=== PATIENT | female | born 1965 | race Two or more races ===

== ENCOUNTER 2019-09-14 22:07 | Inpatient (IN) | payer SELFPAY ==
--- NOTE | 2019-09-14 22:34 | EDM.PDOC ---
ED HPI GENERAL MEDICAL PROBLEM - General Chief Complaint: Gastrointestinal Problem Stated Complaint: VOMITTING FEVER Time Seen by Provider: 09/14/19 22:27 Source of Information: Reports: Family, [employer] History Limitations: Reports: No Limitations - History of Present Illness INITIAL COMMENTS - FREE TEXT/NARRATIVE: Patient son states for 2 weeks she has been throwing up unable to keep anything down with a fever. Patient also states he has had urinary pain and joint pain. Is visiting from [facility]. Is a diabetic he denies chest pain or shortness of breath or diarrhea. Onset: Today Duration: Week(s):, Getting Worse Location: Reports: Abdomen Quality: Reports: Ache Severity: Moderate Improves with: Reports: None Worsens with: Reports: None Associated Symptoms: Reports: No Other Symptoms, Fever/Chills, Loss of Appetite , Nausea/Vomiting Abdomen Pain Score (Numeric/FACES): 7 - Related Data Allergies Allergy/AdvReac Type Severity Reaction Status Date / Time No Known Allergies Allergy Verified 09/14/19 22:22 Home Meds: Home Meds Enalapril Maleate 20 mg PO DAILY 09/14/19 [History] metFORMIN [Glucophage] 1,000 mg PO BIDMEALS 09/14/19 [History] ED ROS GENERAL - Review of Systems Review Of Systems: Comprehensive ROS is negative, except as noted in HPI. Constitutional: Reports: Fever, Weakness HEENT: Reports: No Symptoms Respiratory: Reports: No Symptoms Cardiovascular: Reports: No Symptoms Endocrine: Reports: Fatigue GI/Abdominal: Reports: Abdominal Pain, Anorexia, Nausea, Vomiting : Reports: Urgency Musculoskeletal: Reports: Muscle Pain Skin: Reports: No Symptoms Neurological: Reports: No Symptoms Psychiatric: Reports: No Symptoms Hematologic/Lymphatic: Reports: No Symptoms Immunologic: Reports: No Symptoms ED EXAM, GI/ABD - Physical Exam Exam: See Below Exam Limited By: No Limitations General Appearance: Alert, WD/WN, No Apparent Distress Ears: Normal External Exam, Normal Canal, Hearing Grossly Normal, Normal TMs Nose: Normal Inspection, Normal Mucosa Throat/Mouth: Normal Inspection, Normal Lips, Normal Teeth, Normal Oropharynx, Normal Voice Head: Atraumatic, Normocephalic Neck: Normal Inspection, Supple, Non-Tender Respiratory/Chest: No Respiratory Distress, Lungs Clear, No Accessory Muscle Use Cardiovascular: Normal Peripheral Pulses, Regular Rate, Rhythm, No Edema GI/Abdominal Exam: Normal Bowel Sounds, No Organomegaly, No Abnormal Bruit, No Mass, Tender (Female) Exam: Deferred Rectal (Female) Exam: Deferred Back Exam: Normal Inspection, Full Range of Motion, CVA Tenderness (R) Extremities: Normal Inspection, Normal Range of Motion, No Pedal Edema, Normal Capillary Refill Neurological: Alert, Oriented, CN II-XII Intact, Normal Cognition, Normal Gait, Normal Reflexes, No Motor/Sensory Deficits Psychiatric: Normal Affect, Normal Mood Skin Exam: Warm, Dry, Intact, Normal Color, No Rash Lymphatic: No Adenopathy Course - Vital Signs Text/Narrative:: 54-year-old female who comes from [facility] with a 2-week history of nausea vomiting and malaise. Patient states she has had fever and chills and cannot keep anything down. History of diabetes which she takes metformin for. Was given IV fluids and labs were obtained. Vitals showed patient was tachycardic with a low-grade fever. Septic work-up was ensued with a lactate of 1.7 with a white count of 0.3. Of note her urine seems like it is infected with the high white count and bacteria. She was started on IV fluids, antibiotics, and antiemetics. Patient spiked a fever of 102 in the emergency room was given Tylenol also. Did the chest x-ray and abdominal series showed no abnormality or pathology. A CT scan of the abdomen was also performed which was negative. Patient continues to have vomiting and is uncomfortable and also spiking fevers. This patient might need more hydration at this time with a urinary tract infection. We will call the hospitalist on this case. For possible admission. Last Recorded V/S: Last Vital Signs Temp 100.7 F H 09/15/19 04:08 Pulse 109 H 09/15/19 04:08 Resp 18 09/15/19 04:08 BP 106/62 09/15/19 04:08 Pulse Ox 94 L 09/15/19 04:08 - Orders/Labs/Meds Orders: Active Orders 24 hr Category Date Time Status Admission Status [Patient Status] [ADT] Stat ADT 09/15/19 04:01 Active EKG 12 Lead [EKG Documentation Completion] [RC] STAT Care 09/14/19 22:41 Active CULTURE BLOOD [BC] Stat Lab 09/15/19 01:38 Results CULTURE BLOOD [BC] Stat Lab 09/15/19 01:50 Received CULTURE URINE [RM] Stat Lab 09/14/19 22:22 Received Blood Culture x2 Reflex Set [OM.PC] Stat Oth 09/15/19 01:36 Ordered Labs: Laboratory Tests 09/14/19 09/14/19 09/14/19 Range/Units 22:22 22:22 22:22 WBC 11.36 H (4.0-11.0) K/uL RBC 4.61 (4.30-5.90) M/uL Hgb 13.1 (12.0-16.0) g/dL Hct 38.6 (36.0-46.0) % MCV 83.7 (80.0-98.0) fL MCH 28.4 (27.0-32.0) pg MCHC 33.9 (31.0-37.0) g/dL RDW Std Deviation 41.3 (28.0-62.0) fl RDW Coeff of Stacie 14 (11.0-15.0) % Plt Count 278 (150-400) K/uL MPV 10.30 (7.40-12.00) fL Neut % (Auto) 78.7 (48.0-80.0) % Lymph % (Auto) 14.7 L (16.0-40.0) % Elliott % (Auto) 5.3 (0.0-15.0) % Eos % (Auto) 1.1 (0.0-7.0) % Baso % (Auto) 0.2 (0.0-1.5) % Neut # (Auto) 8.9 H (1.4-5.7) K/uL Lymph # (Auto) 1.7 (0.6-2.4) K/uL Elliott # (Auto) 0.6 (0.0-0.8) K/uL Eos # (Auto) 0.1 (0.0-0.7) K/uL Baso # (Auto) 0.0 (0.0-0.1) K/uL Nucleated RBC % 0.0 /100WBC Nucleated RBCs # 0 K/uL Lactate (0.20-2.00) mmol/L Sodium 126 L (136-145) mmol/L Potassium 4.1 (3.5-5.1) mmol/L Chloride 88 L (98-107) mmol/L Carbon Dioxide 27.1 (21.0-32.0) mmol/L BUN 13 (7.0-18.0) mg/dL Creatinine 1.1 H (0.6-1.0) mg/dL Est Cr Clr Drug Dosing TNP Estimated GFR (MDRD) 52.0 ml/min Glucose 257 H (74-106) mg/dL Calcium 10.0 (8.5-10.1) mg/dL Total Bilirubin 0.6 (0.2-1.0) mg/dL AST 17 (15-37) IU/L ALT 30 (14-63) IU/L Alkaline Phosphatase 186 H (46-116) U/L Troponin I (0.000-0.056) ng/mL Total Protein 9.2 H (6.4-8.2) g/dL Albumin 3.4 (3.4-5.0) g/dL Globulin 5.8 H (2.6-4.0) g/dL Albumin/Globulin Ratio 0.6 L (0.9-1.6) Urine Color YELLOW Urine Appearance CLEAR Urine pH 6.0 (5.0-8.0) Ur Specific [place] 1.010 (1.001-1.035) Urine Protein NEGATIVE (NEGATIVE) mg/dL Urine Glucose (UA) 100 H (NEGATIVE) mg/dL Urine Ketones NEGATIVE (NEGATIVE) mg/dL Urine Occult Blood SMALL H (NEGATIVE) Urine Nitrite POSITIVE H (NEGATIVE) Urine Bilirubin NEGATIVE (NEGATIVE) Urine Urobilinogen 0.2 (<2.0) EU/dL Ur Leukocyte Esterase SMALL H (NEGATIVE) Urine RBC 3-5 (0-2/HPF) Urine WBC 3-5 (0-5/HPF) Ur Epithelial Cells RARE (NONE-FEW) Urine Bacteria 2+ H (NEGATIVE) 09/14/19 09/15/19 Range/Units 22:22 01:50 WBC (4.0-11.0) K/uL RBC (4.30-5.90) M/uL Hgb (12.0-16.0) g/dL Hct (36.0-46.0) % MCV (80.0-98.0) fL MCH (27.0-32.0) pg MCHC (31.0-37.0) g/dL RDW Std Deviation (28.0-62.0) fl RDW Coeff of Stacie (11.0-15.0) % Plt Count (150-400) K/uL MPV (7.40-12.00) fL Neut % (Auto) (48.0-80.0) % Lymph % (Auto) (16.0-40.0) % Elliott % (Auto) (0.0-15.0) % Eos % (Auto) (0.0-7.0) % Baso % (Auto) (0.0-1.5) % Neut # (Auto) (1.4-5.7) K/uL Lymph # (Auto) (0.6-2.4) K/uL Elliott # (Auto) (0.0-0.8) K/uL Eos # (Auto) (0.0-0.7) K/uL Baso # (Auto) (0.0-0.1) K/uL Nucleated RBC % /100WBC Nucleated RBCs # K/uL Lactate 1.5 (0.20-2.00) mmol/L Sodium (136-145) mmol/L Potassium (3.5-5.1) mmol/L Chloride (98-107) mmol/L Carbon Dioxide (21.0-32.0) mmol/L BUN (7.0-18.0) mg/dL Creatinine (0.6-1.0) mg/dL Est Cr Clr Drug Dosing Estimated GFR (MDRD) ml/min Glucose (74-106) mg/dL Calcium (8.5-10.1) mg/dL Total Bilirubin (0.2-1.0) mg/dL AST (15-37) IU/L ALT (14-63) IU/L Alkaline Phosphatase (46-116) U/L Troponin I < 0.050 (0.000-0.056) ng/mL Total Protein (6.4-8.2) g/dL Albumin (3.4-5.0) g/dL Globulin (2.6-4.0) g/dL Albumin/Globulin Ratio (0.9-1.6) Urine Color Urine Appearance Urine pH (5.0-8.0) Ur Specific [place] (1.001-1.035) Urine Protein (NEGATIVE) mg/dL Urine Glucose (UA) (NEGATIVE) mg/dL Urine Ketones (NEGATIVE) mg/dL Urine Occult Blood (NEGATIVE) Urine Nitrite (NEGATIVE) Urine Bilirubin (NEGATIVE) Urine Urobilinogen (<2.0) EU/dL Ur Leukocyte Esterase (NEGATIVE) Urine RBC (0-2/HPF) Urine WBC (0-5/HPF) Ur Epithelial Cells (NONE-FEW) Urine Bacteria (NEGATIVE) Meds: Medications Discontinued Medications Generic Name Dose Route Start Last Admin Trade Name Freq PRN Reason Stop Dose Admin Acetaminophen 1,000 mg 09/15/19 02:21 09/15/19 02:25 Tylenol Extra Strength PO 09/15/19 02:22 1,000 mg ONETIME ONE Administration Sodium Chloride 1,000 mls @ 1,000 mls/hr 09/14/19 22:38 Normal Saline IV 09/14/19 23:37 .Bolus ONE Sodium Chloride 1,000 mls @ 999 mls/hr 09/14/19 22:38 09/14/19 22:46 Normal Saline IV 09/14/19 23:38 999 mls/hr .Bolus ONE Administration Cefazolin Sodium/Dextrose 1 gm 50 mls @ 100 mls/hr 09/14/19 23:49 09/14/19 23 :56 / Premix IV 09/15/19 00:18 100 mls/hr ONETIME ONE Administration Sodium Chloride 1,000 mls @ 1,000 mls/hr 09/14/19 23:53 09/14/19 23:56 Normal Saline IV 09/15/19 00:52 1,000 mls/hr .Bolus ONE Administration Metronidazole 500 mg/ Premix 100 mls @ 100 mls/hr 09/15/19 01:46 09/15/19 01: 56 IV 09/15/19 02:45 100 mls/hr ONETIME ONE Administration Ondansetron HCl 4 mg 09/14/19 22:35 Zofran IVPUSH 09/14/19 22:36 ONETIME ONE Ondansetron HCl 4 mg 09/14/19 22:38 09/14/19 22:46 Zofran IVPUSH 09/14/19 22:39 4 mg ONETIME ONE Administration Ondansetron HCl 4 mg 09/15/19 01:28 09/15/19 01:32 Zofran IVPUSH 09/15/19 01:29 4 mg ONETIME ONE Administration Ondansetron HCl Confirm 09/15/19 01:28 09/15/19 01:34 Zofran Administered 09/15/19 01:29 Not Given Dose 4 mg .ROUTE .STK-MED ONE Departure - Departure Time of Disposition: 04:14 Disposition: Admitted As Inpatient 67 Condition: Good Clinical Impression: UTI, Urinary tract infectious disease, Intractable vomiting with nausea, Diabetes - Discharge Information Referrals: PCP,None [Primary Care Provider] - Forms: ED Department Discharge Sepsis Event Note - Evaluation Sepsis Screening Result: No Definite Risk - Focused Exam Vital Signs: Vital Signs Temp Temp Temp Pulse Resp BP Pulse Ox 09/15/19 04:08 100.7 F H 109 H 18 106/62 94 L 09/15/19 03:26 101.6 F H 113 H 18 113/58 L 94 L 09/15/19 02:57 102.1 F H 122 H 20 132/57 L 94 L 09/15/19 02:25 102.8 F H 09/15/19 02:22 102.8 F H 126 H 20 162/89 H 94 L 09/15/19 01:30 101.5 F H 125 H 20 138/75 96 09/15/19 01:04 100.9 F H 113 H 20 141/80 H 96 09/15/19 00:04 100.4 F 110 H 18 144/72 H 96 09/14/19 23:30 99.8 F 115 H 18 156/85 H 96 09/14/19 22:20 100.6 F 130 H 18 140/86 96 Date Exam was Performed: 09/15/19 Time Exam was Performed: 04:13 - My Orders Last 24 Hours: My Active Orders 09/14/19 22:22 CULTURE URINE [RM] Stat 09/14/19 22:41 EKG 12 Lead [EKG Documentation Completion] [RC] STAT 09/15/19 01:36 Blood Culture x2 Reflex Set [OM.PC] Stat 09/15/19 01:38 CULTURE BLOOD [BC] Stat 09/15/19 01:50 CULTURE BLOOD [BC] Stat 09/15/19 04:01 Admission Status [Patient Status] [ADT] Stat - Assessment/Plan Last 24 Hours: My Active Orders 09/14/19 22:22 CULTURE URINE [RM] Stat 09/14/19 22:41 EKG 12 Lead [EKG Documentation Completion] [RC] STAT 09/15/19 01:36 Blood Culture x2 Reflex Set [OM.PC] Stat 09/15/19 01:38 CULTURE BLOOD [BC] Stat 09/15/19 01:50 CULTURE BLOOD [BC] Stat 09/15/19 04:01 Admission Status [Patient Status] [ADT] Stat
[2019-09-14] MEDS ORDERED: Ondansetron 4 MG/2 ML SDV IVPUSH ONE ×2 (22:35→22:38)
[2019-09-14] MEDS ORDERED: Sodium Chloride 0.9% 1,000 ML IV ONE ×3 (22:38→23:53)
[2019-09-14 23:03] LABS: BLOOD UREA NITROGEN,BUN 13 mg/dL (7.0-18.0); CARBON DIOXIDE,CO2 27.1 mmol/L (21.0-32.0); CHLORIDE,CL 88 mmol/L (98-107); GLUCOSE RANDOM 257 mg/dL (74-106); POTASSIUM,K 4.1 mmol/L (3.5-5.1); SODIUM,NA 126 mmol/L (136-145)
[2019-09-14] MEDS ORDERED: ceFAZolin 1 GM in Premix Bag 1 BAG IV ONE (23:49)
--- NOTE | 2019-09-15 01:05 | CR ---
Indication: Abdominal pain and vomiting Technique: A frontal chest x-ray and three views of the abdomen Comparison: None Findings/Impression: : A nonobstructive bowel gas pattern. Fluid filled small bowel segments. Correlate for enteritis and, if indicated, follow-up with serial KUBs. No suspicious calcifications seen. No definite evidence of gross free air. No pulmonary consolidation or pleural effusions. Unremarkable cardiomediastinal silhouette. Unremarkable osseous structures. Dictated by Jalen Enriquez MD @ 09/15/2019 1:03:09 AM Dictated by: Jalen Enriquez MD @ 09/15/2019 01:03:14 (Electronically Signed)
[2019-09-15] MEDS ORDERED: Ondansetron 4 MG/2 ML SDV IVPUSH ONE (01:28)
[2019-09-15] MEDS ORDERED: Ondansetron 4 MG/2 ML SDV ONE (01:28)
[2019-09-15] MEDS ORDERED: metroNIDAZOLE/Normal Saline 500 MG in Premix Bag 1 BAG IV ONE (01:46)
[2019-09-15] MEDS ORDERED: Acetaminophen 500 MG Tab PO ONE (02:21)
--- NOTE | 2019-09-15 03:31 | CT ---
INDICATION: Septic. Possible diverticulitis or kidney stone. COMPARISON: None available TECHNIQUE: CT examination of the abdomen and pelvis was performed without contrast enhancement using 3 mm thick axial sections from the lung bases through the pubic symphysis. Oral contrast was not administered. Please note that all CT scans at this facility use dose modulation, iterative reconstruction, and/or weight-based dosing when appropriate to reduce radiation dose to as low as reasonably achievable. FINDINGS: In the abdomen, the unenhanced liver, spleen, pancreas, and adrenals are normal in appearance. The unenhanced kidneys are normal in appearance. The gallbladder is normal in appearance. The abdominal aorta is normal in caliber with no sign of dilatation. There is no sign of retroperitoneal mass or adenopathy. There is a tiny hiatal hernia. The rest of the stomach, loops of small bowel, and colon in the abdomen are otherwise normal in appearance. There is a tiny fat containing periumbilical hernia. In the pelvis, the appendix is normal in appearance with no sign of inflammatory process. The loops of small bowel and colon in the pelvis are normal in appearance. The uterus and adnexal regions are normal in appearance. The urinary bladder is normal in appearance. There is no sign of pelvic or inguinal mass or adenopathy. The lung bases are clear. The osseous structures are normal in appearance for the patient`s age. IMPRESSION: Nothing seen to suggest deep-seated infection in the abdomen or pelvis. CT of the abdomen shows a tiny hiatal hernia. Normal CT of the pelvis without contrast. Please note that all CT scans at this facility use dose modulation, iterative reconstruction, and/or weight-based dosing when appropriate to reduce radiation dose to as low as reasonably achievable. Dictated by Warren Woody MD @ Sep 15 2019 3:25AM Signed by Dr. Warren Woody @ Sep 15 2019 3:29AM
[2019-09-15] MEDS ORDERED: Acetaminophen 325 MG Tab PO PRN (05:41)
[2019-09-15] MEDS ORDERED: Ondansetron 4 MG/2 ML SDV IVPUSH PRN ×3 (05:41→10:08)
[2019-09-15] MEDS ORDERED: cefTRIAXone 1 GM in Premix Bag 1 BAG IV SCH (06:00)
[2019-09-15] MEDS: Sodium Chloride 0.9% 1,000 ML IV SCH ×3 (06:04→23:40)
[2019-09-15 08:20] LABS: HEMOGLOBIN A1C 9.2 % (4.5-6.2)
--- NOTE | 2019-09-15 09:04 | PCM.HP.2 ---
H&P History of Present Illness - General Date of Service: 09/15/19 Admit Problem/Dx: Admission Diagnosis/Problem Admission Diagnosis/Problem UTI (urinary tract infection) due to urinary indwelling catheter Source of Information: Patient, Family, Improvement Specialist - History of Present Illness Initial Comments - Free Text/Narative: Patient is a 54-year-old female, [place]ian-speaking only, patient presenting yesterday with 2 to 3 weeks of abdominal pain, dysuria, and up until a couple of days ago nausea, vomiting body aches and chills. Patient does have a significant past medical history of diabetes and is on metformin and enalapril. Patient is a resident of [facility] and is here for [place] vacation. Prior to coming to [facility] patient was seen by her primary physician in [facility] and was told that she has a minor UTI; of which no acute antibiotics were given but patient was advised to drink plenty of fluids. For 2-1/2 weeks patient has noticed increasing worsening of her dysuria accompanied by new onset nausea and vomiting. All of this information is being relayed to the physician Luis Felipe Toledo, who is translating sequence of events. Patient states for the past 10 days she has not been eating or drinking or keeping anything down and otherwise has been getting progressively weaker throughout this past couple of days. Denies using anything [id number]. Denies any other sick contacts. Denies any rashes, dizziness, chest pain and or shortness of breath. ED course: Patient was given 1 dose of Flagyl, Ancef, and ceftriaxone. CT abdomen pelvis without contrast suggested no deep-seated infection. Patient was admitted for UTI in setting of dehydration. Patient received Zofran as well. Bedside: Patient states she is feeling much better compared to yesterday after receiving fluids still complaining of nausea and having a low appetite.. Endorses having a bowel movement and urinating this morning with minimal dysuria. Abdomen Pain Score (Numeric/FACES): 3 - Related Data Allergies/Adverse Reactions: Allergies Allergy/AdvReac Type Severity Reaction Status Date / Time No Known Allergies Allergy Verified 09/14/19 22:22 Home Medications: Home Meds Enalapril Maleate 20 mg PO DAILY 09/14/19 [History] metFORMIN [Glucophage] 1,000 mg PO BIDMEALS 09/14/19 [History] Past Medical History HEENT History: Reports: None Cardiovascular History: Reports: Hypertension Respiratory History: Reports: None Gastrointestinal History: Reports: None Genitourinary History: Reports: None SENIOR BIOINFORMATICS SPECIALIST History: Reports: Musculoskeletal History: Reports: None Neurological History: Reports: None Psychiatric History: Reports: None Endocrine/Metabolic History: Reports: Diabetes, Type II Insulin Pump Model and Organic Lab Worker: None Hematologic History: Reports: None Immunologic History: Reports: None Oncologic (Cancer) History: Reports: None Dermatologic History: Reports: None - Infectious Disease History Infectious Disease History: Reports: None - Past Surgical History Head Surgeries/Procedures: Reports: None Social & Family History - Family History Family Medical History: Noncontributory Cardiac: Reports: Hypertension : Reports: Other (See Below) Other Family History: kidney transplant Endocrine/Metabolic: Reports: Diabetes, type II - Tobacco Use Smoking Status *Q: Never Smoker Second Hand Smoke Exposure: No - Caffeine Use Caffeine Use: Reports: None - Recreational Drug Use Recreational Drug Use: No H&P Review of Systems - Review of Systems: Review Of Systems: See Below General: Reports: Malaise, Decreased Appetite. Denies: Fever, Chills HEENT: Reports: No Symptoms Pulmonary: Reports: No Symptoms Cardiovascular: Reports: No Symptoms Gastrointestinal: Reports: Abdominal Pain, Decreased Appetite, Nausea. Denies: Diarrhea Genitourinary: Reports: Dysuria, Other (currently going through menopause ). Denies: Frequency, Urgency, Incontinence, Hematuria Skin: Reports: No Symptoms Psychiatric: Reports: No Symptoms. Denies: Confusion, Anxiety, Agitation Neurological: Denies: Confusion, Dizziness, Headache Exam - Exam Exam: See Below - Vital Signs Vital Signs: Last Vital Signs Temp 99.4 F 09/15/19 07:20 Pulse 96 09/15/19 07:20 Resp 18 09/15/19 07:20 BP 111/63 09/15/19 08:36 Pulse Ox 95 09/15/19 07:20 Weight: 145 lb 4.8 oz - Exam Quality Assessment: No: Supplemental Oxygen General: Alert, Oriented, Cooperative HEENT: EOMI, Mucosa Moist & [place] Neck: Supple, Trachea Midline Lungs: Clear to Auscultation, Normal Respiratory Effort Cardiovascular: Regular Rate, Regular Rhythm GI/Abdominal Exam: Other (diffuse abdominal tendenress, +suprapubic tenderness, +RUQ tenderness, +left sided CVA tenderness. no rebound tendernss no hx. of abdominal surgery ) Back Exam: CVA Tenderness (L) Extremities: Normal Inspection, Non-Tender, No Pedal Edema Skin: Warm, Dry Neuro Extensive - Mental Status: Alert, Oriented x3 Psychiatric: Alert, Normal Affect, Normal Mood - Patient Data Lab Results Last 24 hrs: Laboratory Results - last 24 hr 09/14/19 09/14/19 09/14/19 Range/Units 22:22 22:22 22:22 WBC 11.36 H (4.0-11.0) K/uL RBC 4.61 (4.30-5.90) M/uL Hgb 13.1 (12.0-16.0) g/dL Hct 38.6 (36.0-46.0) % MCV 83.7 (80.0-98.0) fL MCH 28.4 (27.0-32.0) pg MCHC 33.9 (31.0-37.0) g/dL RDW Std Deviation 41.3 (28.0-62.0) fl RDW Coeff of Stacie 14 (11.0-15.0) % Plt Count 278 (150-400) K/uL MPV 10.30 (7.40-12.00) fL Neut % (Auto) 78.7 (48.0-80.0) % Lymph % (Auto) 14.7 L (16.0-40.0) % [place] % (Auto) 5.3 (0.0-15.0) % Eos % (Auto) 1.1 (0.0-7.0) % Baso % (Auto) 0.2 (0.0-1.5) % Neut # (Auto) 8.9 H (1.4-5.7) K/uL Lymph # (Auto) 1.7 (0.6-2.4) K/uL [place] # (Auto) 0.6 (0.0-0.8) K/uL Eos # (Auto) 0.1 (0.0-0.7) K/uL Baso # (Auto) 0.0 (0.0-0.1) K/uL Nucleated RBC % 0.0 /100WBC Nucleated RBCs # 0 K/uL Lactate (0.20-2.00) mmol/L Sodium 126 L (136-145) mmol/L Potassium 4.1 (3.5-5.1) mmol/L Chloride 88 L (98-107) mmol/L Carbon Dioxide 27.1 (21.0-32.0) mmol/L BUN 13 (7.0-18.0) mg/dL Creatinine 1.1 H (0.6-1.0) mg/dL Est Cr Clr Drug Dosing TNP Estimated GFR (MDRD) 52.0 ml/min Glucose 257 H (74-106) mg/dL POC Glucose (60-110) mg/dL Hemoglobin A1c (4.5-6.2) % Calcium 10.0 (8.5-10.1) mg/dL Total Bilirubin 0.6 (0.2-1.0) mg/dL AST 17 (15-37) IU/L ALT 30 (14-63) IU/L Alkaline Phosphatase 186 H (46-116) U/L Troponin I (0.000-0.056) ng/mL Total Protein 9.2 H (6.4-8.2) g/dL Albumin 3.4 (3.4-5.0) g/dL Globulin 5.8 H (2.6-4.0) g/dL Albumin/Globulin Ratio 0.6 L (0.9-1.6) Urine Color YELLOW Urine Appearance CLEAR Urine pH 6.0 (5.0-8.0) Ur Specific [place] 1.010 (1.001-1.035) Urine Protein NEGATIVE (NEGATIVE) mg/dL Urine Glucose (UA) 100 H (NEGATIVE) mg/dL Urine Ketones NEGATIVE (NEGATIVE) mg/dL Urine Occult Blood SMALL H (NEGATIVE) Urine Nitrite POSITIVE H (NEGATIVE) Urine Bilirubin NEGATIVE (NEGATIVE) Urine Urobilinogen 0.2 (<2.0) EU/dL Ur Leukocyte Esterase SMALL H (NEGATIVE) Urine RBC 3-5 (0-2/HPF) Urine WBC 3-5 (0-5/HPF) Ur Epithelial Cells RARE (NONE-FEW) Urine Bacteria 2+ H (NEGATIVE) 09/14/19 09/14/19 09/15/19 Range/Units 22:22 22:22 01:50 WBC (4.0-11.0) K/uL RBC (4.30-5.90) M/uL Hgb (12.0-16.0) g/dL Hct (36.0-46.0) % MCV (80.0-98.0) fL MCH (27.0-32.0) pg MCHC (31.0-37.0) g/dL RDW Std Deviation (28.0-62.0) fl RDW Coeff of Stacie (11.0-15.0) % Plt Count (150-400) K/uL MPV (7.40-12.00) fL Neut % (Auto) (48.0-80.0) % Lymph % (Auto) (16.0-40.0) % [place] % (Auto) (0.0-15.0) % Eos % (Auto) (0.0-7.0) % Baso % (Auto) (0.0-1.5) % Neut # (Auto) (1.4-5.7) K/uL Lymph # (Auto) (0.6-2.4) K/uL [place] # (Auto) (0.0-0.8) K/uL Eos # (Auto) (0.0-0.7) K/uL Baso # (Auto) (0.0-0.1) K/uL Nucleated RBC % /100WBC Nucleated RBCs # K/uL Lactate 1.5 (0.20-2.00) mmol/L Sodium (136-145) mmol/L Potassium (3.5-5.1) mmol/L Chloride (98-107) mmol/L Carbon Dioxide (21.0-32.0) mmol/L BUN (7.0-18.0) mg/dL Creatinine (0.6-1.0) mg/dL Est Cr Clr Drug Dosing Estimated GFR (MDRD) ml/min Glucose (74-106) mg/dL POC Glucose (60-110) mg/dL Hemoglobin A1c 9.2 H (4.5-6.2) % Calcium (8.5-10.1) mg/dL Total Bilirubin (0.2-1.0) mg/dL AST (15-37) IU/L ALT (14-63) IU/L Alkaline Phosphatase (46-116) U/L Troponin I < 0.050 (0.000-0.056) ng/mL Total Protein (6.4-8.2) g/dL Albumin (3.4-5.0) g/dL Globulin (2.6-4.0) g/dL Albumin/Globulin Ratio (0.9-1.6) Urine Color Urine Appearance Urine pH (5.0-8.0) Ur Specific [place] (1.001-1.035) Urine Protein (NEGATIVE) mg/dL Urine Glucose (UA) (NEGATIVE) mg/dL Urine Ketones (NEGATIVE) mg/dL Urine Occult Blood (NEGATIVE) Urine Nitrite (NEGATIVE) Urine Bilirubin (NEGATIVE) Urine Urobilinogen (<2.0) EU/dL Ur Leukocyte Esterase (NEGATIVE) Urine RBC (0-2/HPF) Urine WBC (0-5/HPF) Ur Epithelial Cells (NONE-FEW) Urine Bacteria (NEGATIVE) 09/15/19 Range/Units 06:13 WBC (4.0-11.0) K/uL RBC (4.30-5.90) M/uL Hgb (12.0-16.0) g/dL Hct (36.0-46.0) % MCV (80.0-98.0) fL MCH (27.0-32.0) pg MCHC (31.0-37.0) g/dL RDW Std Deviation (28.0-62.0) fl RDW Coeff of Stacie (11.0-15.0) % Plt Count (150-400) K/uL MPV (7.40-12.00) fL Neut % (Auto) (48.0-80.0) % Lymph % (Auto) (16.0-40.0) % [place] % (Auto) (0.0-15.0) % Eos % (Auto) (0.0-7.0) % Baso % (Auto) (0.0-1.5) % Neut # (Auto) (1.4-5.7) K/uL Lymph # (Auto) (0.6-2.4) K/uL [place] # (Auto) (0.0-0.8) K/uL Eos # (Auto) (0.0-0.7) K/uL Baso # (Auto) (0.0-0.1) K/uL Nucleated RBC % /100WBC Nucleated RBCs # K/uL Lactate (0.20-2.00) mmol/L Sodium (136-145) mmol/L Potassium (3.5-5.1) mmol/L Chloride (98-107) mmol/L Carbon Dioxide (21.0-32.0) mmol/L BUN (7.0-18.0) mg/dL Creatinine (0.6-1.0) mg/dL Est Cr Clr Drug Dosing Estimated GFR (MDRD) ml/min Glucose (74-106) mg/dL POC Glucose 222 H (60-110) mg/dL Hemoglobin A1c (4.5-6.2) % Calcium (8.5-10.1) mg/dL Total Bilirubin (0.2-1.0) mg/dL AST (15-37) IU/L ALT (14-63) IU/L Alkaline Phosphatase (46-116) U/L Troponin I (0.000-0.056) ng/mL Total Protein (6.4-8.2) g/dL Albumin (3.4-5.0) g/dL Globulin (2.6-4.0) g/dL Albumin/Globulin Ratio (0.9-1.6) Urine Color Urine Appearance Urine pH (5.0-8.0) Ur Specific [place] (1.001-1.035) Urine Protein (NEGATIVE) mg/dL Urine Glucose (UA) (NEGATIVE) mg/dL Urine Ketones (NEGATIVE) mg/dL Urine Occult Blood (NEGATIVE) Urine Nitrite (NEGATIVE) Urine Bilirubin (NEGATIVE) Urine Urobilinogen (<2.0) EU/dL Ur Leukocyte Esterase (NEGATIVE) Urine RBC (0-2/HPF) Urine WBC (0-5/HPF) Ur Epithelial Cells (NONE-FEW) Urine Bacteria (NEGATIVE) Result Diagrams: 09/14/19 22:22 09/14/19 22:22 Matty Results Last 24 hrs: Microbiology 09/15/19 01:38 Anaerobic Blood Culture - Final Blood - Venous 09/14/19 22:50 Influenza Type A Antigen Screen - Final Nasopharyngeal Swab NEGATIVE INFLUENZA A VIRUS AG REFERENCE RANGE: NEGATIVE Influenza Type B Antigen Screen - Final NEGATIVE INFLUENZA B VIRUS AG REFERENCE RANGE: NEGATIVE Sepsis Event Note - Evaluation Sepsis Screening Result: Sepsis Risk - Focused Exam Vital Signs: Vital Signs Temp Temp Temp Pulse Resp BP BP 09/15/19 08:36 111/63 09/15/19 07:20 99.4 F 96 18 27/19 04:47 99.7 F 103 H 16 111/58 L 09/15/19 04:32 105 H 16 115/64 09/15/19 04:08 100.7 F H 109 H 18 106/62 09/15/19 03:26 101.6 F H 113 H 18 113/58 L 09/15/19 02:57 102.1 F H 122 H 20 132/57 L 09/15/19 02:25 102.8 F H 09/15/19 02:22 102.8 F H 126 H 20 162/89 H 09/15/19 01:30 101.5 F H 125 H 20 138/75 09/15/19 01:04 100.9 F H 113 H 20 141/80 H 09/15/19 00:04 100.4 F 110 H 18 144/72 H 09/14/19 23:30 99.8 F 115 H 18 156/85 H 09/14/19 22:20 100.6 F 130 H 18 140/86 Pulse Ox 09/15/19 08:36 09/15/19 07:20 95 09/15/19 04:47 93 L 09/15/19 04:32 97 09/15/19 04:08 94 L 09/15/19 03:26 94 L 09/15/19 02:57 94 L 09/15/19 02:25 09/15/19 02:22 94 L 09/15/19 01:30 96 09/15/19 01:04 96 09/15/19 00:04 96 09/14/19 23:30 96 09/14/19 22:20 96 Date Exam was Performed: 09/15/19 Time Exam was Performed: 11:47 Problem List Initiated/Reviewed/Updated: Yes Orders Last 24hrs: Active Orders 24 hr Category Date Time Status Admission Status [Patient Status] [ADT] Stat ADT 09/15/19 04:01 Active Blood Glucose Check, Bedside [RC] TIDMEALS Care 09/15/19 07:30 Active Telemetry Monitoring [Cardiac Monitoring] [RC] Q8H Care 09/15/19 05:40 Active [employer] Diet [DIET] Diet 09/15/19 Breakfast Active CULTURE BLOOD [BC] Stat Lab 09/15/19 01:38 Results CULTURE BLOOD [BC] Stat Lab 09/15/19 01:50 Received CULTURE URINE [RM] Stat Lab 09/14/19 22:22 Received Acetaminophen [Tylenol] Med 09/15/19 05:41 Active 650 mg PO Q6H PRN Enalapril [Vasotec] Med 09/15/19 09:00 Active 20 mg PO DAILY Insulin Aspart [NovoLOG] Med 09/15/19 07:30 Active See Protocol SUBCUT TIDAC Ondansetron [Zofran] Med 09/15/19 05:41 Active 4 mg IVPUSH Q4H PRN Sodium Chloride 0.9% [Normal Saline] 1,000 ml Med 09/15/19 05:45 Active IV ASDIRECTED cefTRIAXone [Rocephin in Dextrose,Iso-Osm 1 GM/50 ML] 1 Med 09/15/19 06:00 Active gm Premix Bag 1 bag IV Q24H Blood Culture x2 Reflex Set [OM.PC] Stat Oth 09/15/19 01:36 Ordered Medication Orders Acetaminophen (Tylenol) 650 mg PO Q6H PRN PRN Reason: Pain Enalapril Maleate (Vasotec) 20 mg PO DAILY [facility] Last Admin: 09/15/19 08:36 Dose: 20 mg Ceftriaxone Sodium/Dextrose 1 (gm/ Premix) 50 mls @ 100 mls/hr IV Q24H [facility] Last Admin: 09/15/19 06:04 Dose: 100 mls/hr Sodium Chloride (Normal Saline) 1,000 mls @ 125 mls/hr IV ASDIRECTED MARTHA Last Admin: 09/15/19 06:04 Dose: 125 mls/hr Insulin Aspart (Novolog) 0 unit SUBCUT TIDAC [facility]; Protocol Ondansetron HCl (Zofran) 4 mg IVPUSH Q4H PRN PRN Reason: Nausea/Vomiting Last Admin: 09/15/19 08:33 Dose: 4 mg Assessment/Plan Comment:: Assessment: 1. Intractable nausea and vomiting in the setting of a UTI 2. Leukocytosis secondary to above 3. Uncontrolled DM 4. Hyponatremia Plan. Admit to observation. Full code. SCD. Pantoprazole 40 .Activity up ad gabino 1. N/V secondary to UTI: on CTX; continue to observe. Awaiting cultures/ sensitivities. Abdomen pelvis CT reassuring at this time. 2. Leukocytoids secondary to above; continue to monitor 3. RUQ pain: ordered a U/S of RUQ ; +Espinosa sign; again , possibly secondary from radiating pain from UTI; will r/o other pathologies. 4. Uncontrolled DM: A1c elevated; Novolog/sliding scale; will discuss glucose / diabetic control throughout stay. 5. Continue NS IVF until tolerating PO; monitor in AM for Na. Urine studies ordered; Hyperglycemia (pseudohyponatremia) however concerns for SIADH : urine studies ordered; will monitor. pt. understood plan (via co founder & ceo)
[2019-09-15] MEDS: Insulin Aspart 100 Units/ML 3 ML Pen SUBCUT SCH ×3 (09:10→17:17)
[2019-09-15] MEDS ORDERED: Metoclopramide 10 MG/2 ML SDV IVPUSH PRN (10:07)
[2019-09-15] MEDS: Pantoprazole 40 MG Tab.CR PO SCH (10:35)
--- NOTE | 2019-09-15 15:01 | US ---
Limited abdominal ultrasound: Multiple real-time images of the upper right abdomen were obtained. Comparison: Previous noncontrast CT abdomen and pelvis exam performed earlier on the same day. Findings: Multiple gallstones are seen within the gallbladder. No gallbladder wall thickening or biliary duct dilatation is seen. Liver contains no focal abnormality. Right kidney shows no hydronephrosis or mass. Right kidney has a length of 10.7 cm. Pancreas is incompletely seen. Visualized portions of the pancreas show no discrete abnormality. Impression: 1. Multiple gallstones without gallbladder wall thickening or biliary duct dilatation. 2. Incompletely seen pancreas. 3. No additional abnormality is appreciated on right upper quadrant abdominal ultrasound exam. Diagnostic code #2 This report was dictated in [place] Standard Time
[2019-09-15 15:31] LABS: BLOOD UREA NITROGEN,BUN 6 mg/dL (7.0-18.0); CARBON DIOXIDE,CO2 28.1 mmol/L (21.0-32.0); CHLORIDE,CL 95 mmol/L (98-107); GLUCOSE RANDOM 142 mg/dL (74-106); POTASSIUM,K 3.8 mmol/L (3.5-5.1); SODIUM,NA 130 mmol/L (136-145)
[2019-09-15] MEDS ORDERED: Piperacillin/Tazobactam 3.375 GM in Sodium Chloride 0.9% 100 ML IV SCH (15:45)
[2019-09-15] MEDS: Piperacillin/Tazobactam 3.375 GM in Sodium Chloride 0.9% 50 ML IV SCH ×2 (15:57→22:03)
[2019-09-15 16:18] LABS: BLOOD UREA NITROGEN,BUN 6 mg/dL (7.0-18.0); CARBON DIOXIDE,CO2 28.2 mmol/L (21.0-32.0); CHLORIDE,CL 95 mmol/L (98-107); GLUCOSE RANDOM 144 mg/dL (74-106); POTASSIUM,K 3.8 mmol/L (3.5-5.1); SODIUM,NA 131 mmol/L (136-145)
--- NOTE | 2019-09-15 17:13 | PCM.CONS ---
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 The nausea and vomiting have been going on for 2 weeks. She lives in [facility] and is here visiting her family. While in [facility] she was told she had a minor bladder infection and was not given antibiotics. She was tachycardic and febrile on arrival. Her blood pressure was within normal limits. She was given a sepsis workup. She was given fluid boluses. She was found to be hyponatremic with a minor elevation in her creatinine. Lactate was 1.5. Her white count was elevated 11,000. Her alkaline phosphatase was slightly elevated but the remainder of her liver function tests were normal. Her hemoglobin A1c was 9. Her UA showed signs of a UTI. CT scan of the abdomen pelvis was normal. She was placed on ceftriaxone. This afternoon she spiked a fever again and became slightly tachycardic. She is complaining of abdominal pain all over but specifically in the right upper quadrant. An ultrasound of the abdomen was performed which showed multiple stones within the gallbladder with no signs of acute cholecystitis or choledocholithiasis. Labs were repeated and showed improvement in her sodium and lactate. Her white count is now within normal limits. Her BUN/creatinine are normal. I was asked to consult about the upper abdominal pain. She states that now the pain is improved and only minor. She had similar pain in the right upper quadrant in the past and was told she had gallstones. She has not followed up on this. 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: Musculoskeletal History: Reports: None Neurological History: Reports: None Psychiatric History: Reports: None Endocrine/Metabolic History: Reports: Diabetes, Type II Insulin Pump Model and Senior Information Systems Architect: None Hematologic History: Reports: None Immunologic History: Reports: None Oncologic (Cancer) History: Reports: None Dermatologic History: Reports: None - Infectious Disease History Infectious Disease History: Reports: None - Past Surgical History Head Surgeries/Procedures: Reports: None Social & Family History - Family History Family Medical History: Noncontributory Cardiac: Reports: Hypertension : Reports: Other (See Below) Other Family History: kidney transplant Endocrine/Metabolic: Reports: Diabetes, type II - Tobacco Use Smoking Status *Q: Never Smoker Second Hand Smoke Exposure: No - Caffeine Use Caffeine Use: Reports: None - Recreational Drug Use Recreational Drug Use: No H&P Review of Systems - Review of Systems: Review Of Systems: Comprehensive ROS is negative, except as noted in HPI. Exam - Exam Exam: See Below - Vital Signs Vital Signs: Last Vital Signs Temp 38.2 C H 09/15/19 14:29 Pulse 103 H 09/15/19 11:35 Resp 20 09/15/19 11:35 BP 148/72 H 09/15/19 11:35 Pulse Ox 94 L 09/15/19 11:35 Weight: 65.907 kg - Exam General: Alert, Oriented, Cooperative HEENT: Conjunctiva Clear, Mucosa Moist & [place], Posterior Pharynx Clear Lungs: Normal Respiratory Effort Cardiovascular: Regular Rate GI/Abdominal Exam: Soft, Non-Tender, No Distention, No Mass. No: Guarding, Rigid, Rebound - Patient Data Lab Results Last 24 hrs: Laboratory Results - last 24 hr 09/14/19 09/14/19 09/14/19 Range/Units 22:22 22:22 22:22 WBC 11.36 H (4.0-11.0) K/uL RBC 4.61 (4.30-5.90) M/uL Hgb 13.1 (12.0-16.0) g/dL Hct 38.6 (36.0-46.0) % MCV 83.7 (80.0-98.0) fL MCH 28.4 (27.0-32.0) pg MCHC 33.9 (31.0-37.0) g/dL RDW Std Deviation 41.3 (28.0-62.0) fl RDW Coeff of Stacie 14 (11.0-15.0) % Plt Count 278 (150-400) K/uL MPV 10.30 (7.40-12.00) fL Neut % (Auto) 78.7 (48.0-80.0) % Lymph % (Auto) 14.7 L (16.0-40.0) % [place] % (Auto) 5.3 (0.0-15.0) % Eos % (Auto) 1.1 (0.0-7.0) % Baso % (Auto) 0.2 (0.0-1.5) % Neut # (Auto) 8.9 H (1.4-5.7) K/uL Lymph # (Auto) 1.7 (0.6-2.4) K/uL [place] # (Auto) 0.6 (0.0-0.8) K/uL Eos # (Auto) 0.1 (0.0-0.7) K/uL Baso # (Auto) 0.0 (0.0-0.1) K/uL Nucleated RBC % 0.0 /100WBC Nucleated RBCs # 0 K/uL Lactate (0.20-2.00) mmol/L Sodium 126 L (136-145) mmol/L Potassium 4.1 (3.5-5.1) mmol/L Chloride 88 L (98-107) mmol/L Carbon Dioxide 27.1 (21.0-32.0) mmol/L BUN 13 (7.0-18.0) mg/dL Creatinine 1.1 H (0.6-1.0) mg/dL Est Cr Clr Drug Dosing TNP Estimated GFR (MDRD) 52.0 ml/min Glucose 257 H (74-106) mg/dL POC Glucose (60-110) mg/dL Hemoglobin A1c (4.5-6.2) % Calcium 10.0 (8.5-10.1) mg/dL Total Bilirubin 0.6 (0.2-1.0) mg/dL AST 17 (15-37) IU/L ALT 30 (14-63) IU/L Alkaline Phosphatase 186 H (46-116) U/L Troponin I (0.000-0.056) ng/mL Total Protein 9.2 H (6.4-8.2) g/dL Albumin 3.4 (3.4-5.0) g/dL Globulin 5.8 H (2.6-4.0) g/dL Albumin/Globulin Ratio 0.6 L (0.9-1.6) Lipase (73-393) U/L Urine Color YELLOW Urine Appearance CLEAR Urine pH 6.0 (5.0-8.0) Ur Specific [place] 1.010 (1.001-1.035) Urine Protein NEGATIVE (NEGATIVE) mg/dL Urine Glucose (UA) 100 H (NEGATIVE) mg/dL Urine Ketones NEGATIVE (NEGATIVE) mg/dL Urine Occult Blood SMALL H (NEGATIVE) Urine Nitrite POSITIVE H (NEGATIVE) Urine Bilirubin NEGATIVE (NEGATIVE) Urine Urobilinogen 0.2 (<2.0) EU/dL Ur Leukocyte Esterase SMALL H (NEGATIVE) Urine RBC 3-5 (0-2/HPF) Urine WBC 3-5 (0-5/HPF) Ur Epithelial Cells RARE (NONE-FEW) Urine Bacteria 2+ H (NEGATIVE) Ur Random Creatinine mg/dL U Random Total Protein (<11.9) mg/dL Ur Random Sodium (40.0-220.0) mmol/L Protein/Creatinin Ratio 09/14/19 09/14/19 09/15/19 Range/Units 22:22 22:22 01:50 WBC (4.0-11.0) K/uL RBC (4.30-5.90) M/uL Hgb (12.0-16.0) g/dL Hct (36.0-46.0) % MCV (80.0-98.0) fL MCH (27.0-32.0) pg MCHC (31.0-37.0) g/dL RDW Std Deviation (28.0-62.0) fl RDW Coeff of Stacie (11.0-15.0) % Plt Count (150-400) K/uL MPV (7.40-12.00) fL Neut % (Auto) (48.0-80.0) % Lymph % (Auto) (16.0-40.0) % [place] % (Auto) (0.0-15.0) % Eos % (Auto) (0.0-7.0) % Baso % (Auto) (0.0-1.5) % Neut # (Auto) (1.4-5.7) K/uL Lymph # (Auto) (0.6-2.4) K/uL [place] # (Auto) (0.0-0.8) K/uL Eos # (Auto) (0.0-0.7) K/uL Baso # (Auto) (0.0-0.1) K/uL Nucleated RBC % /100WBC Nucleated RBCs # K/uL Lactate 1.5 (0.20-2.00) mmol/L Sodium (136-145) mmol/L Potassium (3.5-5.1) mmol/L Chloride (98-107) mmol/L Carbon Dioxide (21.0-32.0) mmol/L BUN (7.0-18.0) mg/dL Creatinine (0.6-1.0) mg/dL Est Cr Clr Drug Dosing Estimated GFR (MDRD) ml/min Glucose (74-106) mg/dL POC Glucose (60-110) mg/dL Hemoglobin A1c 9.2 H (4.5-6.2) % Calcium (8.5-10.1) mg/dL Total Bilirubin (0.2-1.0) mg/dL AST (15-37) IU/L ALT (14-63) IU/L Alkaline Phosphatase (46-116) U/L Troponin I < 0.050 (0.000-0.056) ng/mL Total Protein (6.4-8.2) g/dL Albumin (3.4-5.0) g/dL Globulin (2.6-4.0) g/dL Albumin/Globulin Ratio (0.9-1.6) Lipase (73-393) U/L Urine Color Urine Appearance Urine pH (5.0-8.0) Ur Specific [place] (1.001-1.035) Urine Protein (NEGATIVE) mg/dL Urine Glucose (UA) (NEGATIVE) mg/dL Urine Ketones (NEGATIVE) mg/dL Urine Occult Blood (NEGATIVE) Urine Nitrite (NEGATIVE) Urine Bilirubin (NEGATIVE) Urine Urobilinogen (<2.0) EU/dL Ur Leukocyte Esterase (NEGATIVE) Urine RBC (0-2/HPF) Urine WBC (0-5/HPF) Ur Epithelial Cells (NONE-FEW) Urine Bacteria (NEGATIVE) Ur Random Creatinine mg/dL U Random Total Protein (<11.9) mg/dL Ur Random Sodium (40.0-220.0) mmol/L Protein/Creatinin Ratio 09/15/19 09/15/19 09/15/19 Range/Units 06:13 11:17 11:49 WBC (4.0-11.0) K/uL RBC (4.30-5.90) M/uL Hgb (12.0-16.0) g/dL Hct (36.0-46.0) % MCV (80.0-98.0) fL MCH (27.0-32.0) pg MCHC (31.0-37.0) g/dL RDW Std Deviation (28.0-62.0) fl RDW Coeff of Stacie (11.0-15.0) % Plt Count (150-400) K/uL MPV (7.40-12.00) fL Neut % (Auto) (48.0-80.0) % Lymph % (Auto) (16.0-40.0) % [place] % (Auto) (0.0-15.0) % Eos % (Auto) (0.0-7.0) % Baso % (Auto) (0.0-1.5) % Neut # (Auto) (1.4-5.7) K/uL Lymph # (Auto) (0.6-2.4) K/uL [place] # (Auto) (0.0-0.8) K/uL Eos # (Auto) (0.0-0.7) K/uL Baso # (Auto) (0.0-0.1) K/uL Nucleated RBC % /100WBC Nucleated RBCs # K/uL Lactate (0.20-2.00) mmol/L Sodium (136-145) mmol/L Potassium (3.5-5.1) mmol/L Chloride (98-107) mmol/L Carbon Dioxide (21.0-32.0) mmol/L BUN (7.0-18.0) mg/dL Creatinine (0.6-1.0) mg/dL Est Cr Clr Drug Dosing Estimated GFR (MDRD) ml/min Glucose (74-106) mg/dL POC Glucose 222 H 211 H (60-110) mg/dL Hemoglobin A1c (4.5-6.2) % Calcium (8.5-10.1) mg/dL Total Bilirubin (0.2-1.0) mg/dL AST (15-37) IU/L ALT (14-63) IU/L Alkaline Phosphatase (46-116) U/L Troponin I (0.000-0.056) ng/mL Total Protein (6.4-8.2) g/dL Albumin (3.4-5.0) g/dL Globulin (2.6-4.0) g/dL Albumin/Globulin Ratio (0.9-1.6) Lipase (73-393) U/L Urine Color Urine Appearance Urine pH (5.0-8.0) Ur Specific [place] (1.001-1.035) Urine Protein (NEGATIVE) mg/dL Urine Glucose (UA) (NEGATIVE) mg/dL Urine Ketones (NEGATIVE) mg/dL Urine Occult Blood (NEGATIVE) Urine Nitrite (NEGATIVE) Urine Bilirubin (NEGATIVE) Urine Urobilinogen (<2.0) EU/dL Ur Leukocyte Esterase (NEGATIVE) Urine RBC (0-2/HPF) Urine WBC (0-5/HPF) Ur Epithelial Cells (NONE-FEW) Urine Bacteria (NEGATIVE) Ur Random Creatinine 12.6 mg/dL U Random Total Protein 11.5 (<11.9) mg/dL Ur Random Sodium 84.0 (40.0-220.0) mmol/L Protein/Creatinin Ratio 0.9 09/15/19 09/15/19 09/15/19 Range/Units 14:58 14:58 14:58 WBC 8.73 (4.0-11.0) K/uL RBC 3.69 L (4.30-5.90) M/uL Hgb 10.3 L (12.0-16.0) g/dL Hct 30.6 L (36.0-46.0) % MCV 82.9 (80.0-98.0) fL MCH 27.9 (27.0-32.0) pg MCHC 33.7 (31.0-37.0) g/dL RDW Std Deviation 41.7 (28.0-62.0) fl RDW Coeff of Stacie 14 (11.0-15.0) % Plt Count 293 (150-400) K/uL MPV 11.10 (7.40-12.00) fL Neut % (Auto) 75.2 (48.0-80.0) % Lymph % (Auto) 16.7 (16.0-40.0) % [place] % (Auto) 7.9 (0.0-15.0) % Eos % (Auto) 0.1 (0.0-7.0) % Baso % (Auto) 0.1 (0.0-1.5) % Neut # (Auto) 6.6 H (1.4-5.7) K/uL Lymph # (Auto) 1.5 (0.6-2.4) K/uL [place] # (Auto) 0.7 (0.0-0.8) K/uL Eos # (Auto) 0.0 (0.0-0.7) K/uL Baso # (Auto) 0.0 (0.0-0.1) K/uL Nucleated RBC % 0.0 /100WBC Nucleated RBCs # 0 K/uL Lactate (0.20-2.00) mmol/L Sodium 130 L (136-145) mmol/L Potassium 3.8 (3.5-5.1) mmol/L Chloride 95 L (98-107) mmol/L Carbon Dioxide 28.1 (21.0-32.0) mmol/L BUN 6 L (7.0-18.0) mg/dL Creatinine 0.9 (0.6-1.0) mg/dL Est Cr Clr Drug Dosing 57.71 Estimated GFR (MDRD) > 60.0 ml/min Glucose 142 H (74-106) mg/dL POC Glucose (60-110) mg/dL Hemoglobin A1c (4.5-6.2) % Calcium 8.5 (8.5-10.1) mg/dL Total Bilirubin (0.2-1.0) mg/dL AST (15-37) IU/L ALT (14-63) IU/L Alkaline Phosphatase (46-116) U/L Troponin I (0.000-0.056) ng/mL Total Protein (6.4-8.2) g/dL Albumin (3.4-5.0) g/dL Globulin (2.6-4.0) g/dL Albumin/Globulin Ratio (0.9-1.6) Lipase 60 L (73-393) U/L Urine Color Urine Appearance Urine pH (5.0-8.0) Ur Specific [place] (1.001-1.035) Urine Protein (NEGATIVE) mg/dL Urine Glucose (UA) (NEGATIVE) mg/dL Urine Ketones (NEGATIVE) mg/dL Urine Occult Blood (NEGATIVE) Urine Nitrite (NEGATIVE) Urine Bilirubin (NEGATIVE) Urine Urobilinogen (<2.0) EU/dL Ur Leukocyte Esterase (NEGATIVE) Urine RBC (0-2/HPF) Urine WBC (0-5/HPF) Ur Epithelial Cells (NONE-FEW) Urine Bacteria (NEGATIVE) Ur Random Creatinine mg/dL U Random Total Protein (<11.9) mg/dL Ur Random Sodium (40.0-220.0) mmol/L Protein/Creatinin Ratio 09/15/19 09/15/19 09/15/19 Range/Units 14:58 16:08 16:59 WBC (4.0-11.0) K/uL RBC (4.30-5.90) M/uL Hgb (12.0-16.0) g/dL Hct (36.0-46.0) % MCV (80.0-98.0) fL MCH (27.0-32.0) pg MCHC (31.0-37.0) g/dL RDW Std Deviation (28.0-62.0) fl RDW Coeff of Stacie (11.0-15.0) % Plt Count (150-400) K/uL MPV (7.40-12.00) fL Neut % (Auto) (48.0-80.0) % Lymph % (Auto) (16.0-40.0) % [place] % (Auto) (0.0-15.0) % Eos % (Auto) (0.0-7.0) % Baso % (Auto) (0.0-1.5) % Neut # (Auto) (1.4-5.7) K/uL Lymph # (Auto) (0.6-2.4) K/uL [place] # (Auto) (0.0-0.8) K/uL Eos # (Auto) (0.0-0.7) K/uL Baso # (Auto) (0.0-0.1) K/uL Nucleated RBC % /100WBC Nucleated RBCs # K/uL Lactate 0.7 (0.20-2.00) mmol/L Sodium 131 L (136-145) mmol/L Potassium 3.8 (3.5-5.1) mmol/L Chloride 95 L (98-107) mmol/L Carbon Dioxide 28.2 (21.0-32.0) mmol/L BUN 6 L (7.0-18.0) mg/dL Creatinine 0.9 (0.6-1.0) mg/dL Est Cr Clr Drug Dosing 57.71 Estimated GFR (MDRD) > 60.0 ml/min Glucose 144 H (74-106) mg/dL POC Glucose 118 H (60-110) mg/dL Hemoglobin A1c (4.5-6.2) % Calcium 8.5 (8.5-10.1) mg/dL Total Bilirubin 0.3 (0.2-1.0) mg/dL AST 14 L (15-37) IU/L ALT 22 (14-63) IU/L Alkaline Phosphatase 130 H (46-116) U/L Troponin I (0.000-0.056) ng/mL Total Protein 7.1 (6.4-8.2) g/dL Albumin 2.5 L (3.4-5.0) g/dL Globulin 4.6 H (2.6-4.0) g/dL Albumin/Globulin Ratio 0.5 L (0.9-1.6) Lipase (73-393) U/L Urine Color Urine Appearance Urine pH (5.0-8.0) Ur Specific [place] (1.001-1.035) Urine Protein (NEGATIVE) mg/dL Urine Glucose (UA) (NEGATIVE) mg/dL Urine Ketones (NEGATIVE) mg/dL Urine Occult Blood (NEGATIVE) Urine Nitrite (NEGATIVE) Urine Bilirubin (NEGATIVE) Urine Urobilinogen (<2.0) EU/dL Ur Leukocyte Esterase (NEGATIVE) Urine RBC (0-2/HPF) Urine WBC (0-5/HPF) Ur Epithelial Cells (NONE-FEW) Urine Bacteria (NEGATIVE) Ur Random Creatinine mg/dL U Random Total Protein (<11.9) mg/dL Ur Random Sodium (40.0-220.0) mmol/L Protein/Creatinin Ratio Result Diagrams: 09/15/19 14:58 09/15/19 14:58 Matty Results Last 24 hrs: Microbiology 09/15/19 01:38 Anaerobic Blood Culture - Final Blood - Venous 09/14/19 22:50 Influenza Type A Antigen Screen - Final Nasopharyngeal Swab NEGATIVE INFLUENZA A VIRUS AG REFERENCE RANGE: NEGATIVE Influenza Type B Antigen Screen - Final NEGATIVE INFLUENZA B VIRUS AG REFERENCE RANGE: NEGATIVE Sepsis Event Note - Evaluation Sepsis Screening Result: Sepsis Risk - Focused Exam Vital Signs: Vital Signs Temp Temp Temp Pulse Resp BP BP 09/15/19 14:29 38.2 C H 09/15/19 13:35 39.2 C H 09/15/19 11:35 37.2 C 103 H 20 148/72 H 09/15/19 08:36 111/63 09/15/19 07:20 37.4 C 96 18 111/63 Pulse Ox 09/15/19 14:29 09/15/19 13:35 09/15/19 11:35 94 L 09/15/19 08:36 09/15/19 07:20 95 Date Exam was Performed: 09/15/19 Time Exam was Performed: 17:14 Consult PN Assessment/Plan (1) Symptomatic cholelithiasis SNOMED Code(s): 544388483, 509912821 Code(s): K80.20 - CALCULUS OF GALLBLADDER W/O CHOLECYSTITIS W/O OBSTRUCTION Current Visit: Yes Problem List Initiated/Reviewed/Updated: Yes Plan: At this point I do not believe the patient has gangrenous cholecystitis or signs of acute cholecystitis. Likely her fever and tachycardia is secondary to her urinary tract infection. Her antibiotics were broadened to Zosyn to cover any unusual bacteria that may be causing her UTI since she is an uncontrolled diabetic who [place]. I'll continue with IV fluids overnight however the patient can be advanced to a clear liquid diet as long as this is tolerated. She states that her nausea and vomiting are resolved at this point. Recheck CBC and CMP in the morning. If she is doing well we'll likely advance her diet to regular and discuss transitioning to oral antibiotics.
[2019-09-16] MEDS: Piperacillin/Tazobactam 3.375 GM in Sodium Chloride 0.9% 50 ML IV SCH ×4 (04:20→20:51)
[2019-09-16] MEDS: Pantoprazole 40 MG Tab.CR PO SCH (06:35)
[2019-09-16 07:09] LABS: BLOOD UREA NITROGEN,BUN 4 mg/dL (7.0-18.0); CARBON DIOXIDE,CO2 26.8 mmol/L (21.0-32.0); CHLORIDE,CL 96 mmol/L (98-107); GLUCOSE RANDOM 156 mg/dL (74-106); POTASSIUM,K 3.8 mmol/L (3.5-5.1); SODIUM,NA 131 mmol/L (136-145)
--- NOTE | 2019-09-16 09:08 | PCM.CONSN ---
- General Info Date of Service: 09/16/19 Functional Status: Reports: Pain Controlled, Tolerating Diet, Ambulating, Urinating - Review of Systems General: Reports: No Symptoms HEENT: Reports: No Symptoms Pulmonary: Reports: No Symptoms Cardiovascular: Reports: No Symptoms Gastrointestinal: Reports: No Symptoms Genitourinary: Reports: No Symptoms Musculoskeletal: Reports: No Symptoms - Patient Data Vitals - Most Recent: Last Vital Signs Temp 36.9 C 09/16/19 07:15 Pulse 92 09/16/19 07:15 Resp 16 09/16/19 07:15 BP 142/76 H 09/16/19 07:15 Pulse Ox 93 L 09/16/19 07:15 Weight - Most Recent: 65.907 kg I&O - Last 24 Hours: Intake & Output 09/15/19 09/16/19 09/16/19 22:59 06:59 14:59 Intake Total 1951 1219 Output Total 1800 Balance 151 1219 Lab Results Last 24 Hours: Laboratory Results - last 24 hr 09/14/19 09/15/19 09/15/19 Range/Units 22:33 11:17 11:17 WBC (4.0-11.0) K/uL RBC (4.30-5.90) M/uL Hgb (12.0-16.0) g/dL Hct (36.0-46.0) % MCV (80.0-98.0) fL MCH (27.0-32.0) pg MCHC (31.0-37.0) g/dL RDW Std Deviation (28.0-62.0) fl RDW Coeff of Stacie (11.0-15.0) % Plt Count (150-400) K/uL MPV (7.40-12.00) fL Neut % (Auto) (48.0-80.0) % Lymph % (Auto) (16.0-40.0) % [place] % (Auto) (0.0-15.0) % Eos % (Auto) (0.0-7.0) % Baso % (Auto) (0.0-1.5) % Neut # (Auto) (1.4-5.7) K/uL Lymph # (Auto) (0.6-2.4) K/uL [place] # (Auto) (0.0-0.8) K/uL Eos # (Auto) (0.0-0.7) K/uL Baso # (Auto) (0.0-0.1) K/uL Nucleated RBC % /100WBC Nucleated RBCs # K/uL Lactate (0.20-2.00) mmol/L Sodium (136-145) mmol/L Potassium (3.5-5.1) mmol/L Chloride (98-107) mmol/L Carbon Dioxide (21.0-32.0) mmol/L BUN (7.0-18.0) mg/dL Creatinine (0.6-1.0) mg/dL Est Cr Clr Drug Dosing mL/min Estimated GFR (MDRD) ml/min Glucose (74-106) mg/dL POC Glucose 273 H (60-110) mg/dL Calcium (8.5-10.1) mg/dL Total Bilirubin (0.2-1.0) mg/dL AST (15-37) IU/L ALT (14-63) IU/L Alkaline Phosphatase (46-116) U/L Total Protein (6.4-8.2) g/dL Albumin (3.4-5.0) g/dL Globulin (2.6-4.0) g/dL Albumin/Globulin Ratio (0.9-1.6) Lipase (73-393) U/L Urine Osmolality 235 L (300-900) mosm/kg Ur Random Creatinine 12.6 mg/dL U Random Total Protein 11.5 (<11.9) mg/dL Ur Random Sodium 84.0 (40.0-220.0) mmol/L Protein/Creatinin Ratio 0.9 09/15/19 09/15/19 09/15/19 Range/Units 11:49 14:58 14:58 WBC (4.0-11.0) K/uL RBC (4.30-5.90) M/uL Hgb (12.0-16.0) g/dL Hct (36.0-46.0) % MCV (80.0-98.0) fL MCH (27.0-32.0) pg MCHC (31.0-37.0) g/dL RDW Std Deviation (28.0-62.0) fl RDW Coeff of Stacie (11.0-15.0) % Plt Count (150-400) K/uL MPV (7.40-12.00) fL Neut % (Auto) (48.0-80.0) % Lymph % (Auto) (16.0-40.0) % [place] % (Auto) (0.0-15.0) % Eos % (Auto) (0.0-7.0) % Baso % (Auto) (0.0-1.5) % Neut # (Auto) (1.4-5.7) K/uL Lymph # (Auto) (0.6-2.4) K/uL [place] # (Auto) (0.0-0.8) K/uL Eos # (Auto) (0.0-0.7) K/uL Baso # (Auto) (0.0-0.1) K/uL Nucleated RBC % /100WBC Nucleated RBCs # K/uL Lactate (0.20-2.00) mmol/L Sodium 130 L (136-145) mmol/L Potassium 3.8 (3.5-5.1) mmol/L Chloride 95 L (98-107) mmol/L Carbon Dioxide 28.1 (21.0-32.0) mmol/L BUN 6 L (7.0-18.0) mg/dL Creatinine 0.9 (0.6-1.0) mg/dL Est Cr Clr Drug Dosing 57.71 mL/min Estimated GFR (MDRD) > 60.0 ml/min Glucose 142 H (74-106) mg/dL POC Glucose 211 H (60-110) mg/dL Calcium 8.5 (8.5-10.1) mg/dL Total Bilirubin (0.2-1.0) mg/dL AST (15-37) IU/L ALT (14-63) IU/L Alkaline Phosphatase (46-116) U/L Total Protein (6.4-8.2) g/dL Albumin (3.4-5.0) g/dL Globulin (2.6-4.0) g/dL Albumin/Globulin Ratio (0.9-1.6) Lipase 60 L (73-393) U/L Urine Osmolality (300-900) mosm/kg Ur Random Creatinine mg/dL U Random Total Protein (<11.9) mg/dL Ur Random Sodium (40.0-220.0) mmol/L Protein/Creatinin Ratio 09/15/19 09/15/19 09/15/19 Range/Units 14:58 14:58 16:08 WBC 8.73 (4.0-11.0) K/uL RBC 3.69 L (4.30-5.90) M/uL Hgb 10.3 L (12.0-16.0) g/dL Hct 30.6 L (36.0-46.0) % MCV 82.9 (80.0-98.0) fL MCH 27.9 (27.0-32.0) pg MCHC 33.7 (31.0-37.0) g/dL RDW Std Deviation 41.7 (28.0-62.0) fl RDW Coeff of Stacie 14 (11.0-15.0) % Plt Count 293 (150-400) K/uL MPV 11.10 (7.40-12.00) fL Neut % (Auto) 75.2 (48.0-80.0) % Lymph % (Auto) 16.7 (16.0-40.0) % [place] % (Auto) 7.9 (0.0-15.0) % Eos % (Auto) 0.1 (0.0-7.0) % Baso % (Auto) 0.1 (0.0-1.5) % Neut # (Auto) 6.6 H (1.4-5.7) K/uL Lymph # (Auto) 1.5 (0.6-2.4) K/uL [place] # (Auto) 0.7 (0.0-0.8) K/uL Eos # (Auto) 0.0 (0.0-0.7) K/uL Baso # (Auto) 0.0 (0.0-0.1) K/uL Nucleated RBC % 0.0 /100WBC Nucleated RBCs # 0 K/uL Lactate 0.7 (0.20-2.00) mmol/L Sodium 131 L (136-145) mmol/L Potassium 3.8 (3.5-5.1) mmol/L Chloride 95 L (98-107) mmol/L Carbon Dioxide 28.2 (21.0-32.0) mmol/L BUN 6 L (7.0-18.0) mg/dL Creatinine 0.9 (0.6-1.0) mg/dL Est Cr Clr Drug Dosing 57.71 mL/min Estimated GFR (MDRD) > 60.0 ml/min Glucose 144 H (74-106) mg/dL POC Glucose (60-110) mg/dL Calcium 8.5 (8.5-10.1) mg/dL Total Bilirubin 0.3 (0.2-1.0) mg/dL AST 14 L (15-37) IU/L ALT 22 (14-63) IU/L Alkaline Phosphatase 130 H (46-116) U/L Total Protein 7.1 (6.4-8.2) g/dL Albumin 2.5 L (3.4-5.0) g/dL Globulin 4.6 H (2.6-4.0) g/dL Albumin/Globulin Ratio 0.5 L (0.9-1.6) Lipase (73-393) U/L Urine Osmolality (300-900) mosm/kg Ur Random Creatinine mg/dL U Random Total Protein (<11.9) mg/dL Ur Random Sodium (40.0-220.0) mmol/L Protein/Creatinin Ratio 09/15/19 09/16/19 09/16/19 Range/Units 16:59 06:05 06:05 WBC 9.86 (4.0-11.0) K/uL RBC 3.60 L (4.30-5.90) M/uL Hgb 10.2 L (12.0-16.0) g/dL Hct 30.1 L (36.0-46.0) % MCV 83.6 (80.0-98.0) fL MCH 28.3 (27.0-32.0) pg MCHC 33.9 (31.0-37.0) g/dL RDW Std Deviation 41.8 (28.0-62.0) fl RDW Coeff of Stacie 14 (11.0-15.0) % Plt Count 306 (150-400) K/uL MPV 10.50 (7.40-12.00) fL Neut % (Auto) 63.4 (48.0-80.0) % Lymph % (Auto) 22.9 (16.0-40.0) % [place] % (Auto) 13.1 (0.0-15.0) % Eos % (Auto) 0.4 (0.0-7.0) % Baso % (Auto) 0.2 (0.0-1.5) % Neut # (Auto) 6.3 H (1.4-5.7) K/uL Lymph # (Auto) 2.3 (0.6-2.4) K/uL [place] # (Auto) 1.3 H (0.0-0.8) K/uL Eos # (Auto) 0.0 (0.0-0.7) K/uL Baso # (Auto) 0.0 (0.0-0.1) K/uL Nucleated RBC % 0.0 /100WBC Nucleated RBCs # 0 K/uL Lactate (0.20-2.00) mmol/L Sodium 131 L (136-145) mmol/L Potassium 3.8 (3.5-5.1) mmol/L Chloride 96 L (98-107) mmol/L Carbon Dioxide 26.8 (21.0-32.0) mmol/L BUN 4 L (7.0-18.0) mg/dL Creatinine 0.8 (0.6-1.0) mg/dL Est Cr Clr Drug Dosing 64.92 mL/min Estimated GFR (MDRD) > 60.0 ml/min Glucose 156 H (74-106) mg/dL POC Glucose 118 H (60-110) mg/dL Calcium 8.4 L (8.5-10.1) mg/dL Total Bilirubin 0.5 (0.2-1.0) mg/dL AST 12 L (15-37) IU/L ALT 20 (14-63) IU/L Alkaline Phosphatase 145 H (46-116) U/L Total Protein 6.8 (6.4-8.2) g/dL Albumin 2.3 L (3.4-5.0) g/dL Globulin 4.5 H (2.6-4.0) g/dL Albumin/Globulin Ratio 0.5 L (0.9-1.6) Lipase (73-393) U/L Urine Osmolality (300-900) mosm/kg Ur Random Creatinine mg/dL U Random Total Protein (<11.9) mg/dL Ur Random Sodium (40.0-220.0) mmol/L Protein/Creatinin Ratio 09/16/19 Range/Units 06:38 WBC (4.0-11.0) K/uL RBC (4.30-5.90) M/uL Hgb (12.0-16.0) g/dL Hct (36.0-46.0) % MCV (80.0-98.0) fL MCH (27.0-32.0) pg MCHC (31.0-37.0) g/dL RDW Std Deviation (28.0-62.0) fl RDW Coeff of Stacie (11.0-15.0) % Plt Count (150-400) K/uL MPV (7.40-12.00) fL Neut % (Auto) (48.0-80.0) % Lymph % (Auto) (16.0-40.0) % [place] % (Auto) (0.0-15.0) % Eos % (Auto) (0.0-7.0) % Baso % (Auto) (0.0-1.5) % Neut # (Auto) (1.4-5.7) K/uL Lymph # (Auto) (0.6-2.4) K/uL [place] # (Auto) (0.0-0.8) K/uL Eos # (Auto) (0.0-0.7) K/uL Baso # (Auto) (0.0-0.1) K/uL Nucleated RBC % /100WBC Nucleated RBCs # K/uL Lactate (0.20-2.00) mmol/L Sodium (136-145) mmol/L Potassium (3.5-5.1) mmol/L Chloride (98-107) mmol/L Carbon Dioxide (21.0-32.0) mmol/L BUN (7.0-18.0) mg/dL Creatinine (0.6-1.0) mg/dL Est Cr Clr Drug Dosing mL/min Estimated GFR (MDRD) ml/min Glucose (74-106) mg/dL POC Glucose 150 H (60-110) mg/dL Calcium (8.5-10.1) mg/dL Total Bilirubin (0.2-1.0) mg/dL AST (15-37) IU/L ALT (14-63) IU/L Alkaline Phosphatase (46-116) U/L Total Protein (6.4-8.2) g/dL Albumin (3.4-5.0) g/dL Globulin (2.6-4.0) g/dL Albumin/Globulin Ratio (0.9-1.6) Lipase (73-393) U/L Urine Osmolality (300-900) mosm/kg Ur Random Creatinine mg/dL U Random Total Protein (<11.9) mg/dL Ur Random Sodium (40.0-220.0) mmol/L Protein/Creatinin Ratio Matty Results Last 24 Hours: Microbiology 09/15/19 01:50 Aerobic Blood Culture - Preliminary Blood - Venous - Lab Draw Anaerobic Blood Culture - Preliminary NO GROWTH AFTER 1 DAY 09/15/19 01:38 Aerobic Blood Culture - Preliminary Blood - Venous NO GROWTH AFTER 1 DAY Anaerobic Blood Culture - Final 09/15/19 17:05 Campylobacter Antigen Assay - Final Stool / Feces NEGATIVE CAMPYLOBACTER AG REFERENCE RANGE: NEGATIVE Med Orders - Current: Current Medications Acetaminophen (Tylenol) 650 mg PO Q6H PRN PRN Reason: Pain Last Admin: 09/15/19 13:35 Dose: 650 mg Enalapril Maleate (Vasotec) 20 mg PO DAILY ON LICENSE OF [facility] Last Admin: 09/15/19 08:36 Dose: 20 mg Sodium Chloride (Normal Saline) 1,000 mls @ 125 mls/hr IV ASDIRECTED ON LICENSE OF [facility] Last Admin: 09/15/19 23:40 Dose: 125 mls/hr Piperacillin Sod/Tazobactam (Sod 3.375 gm/ Sodium Chloride) 50 mls @ 100 mls/ hr IV Q6H ON LICENSE OF [facility] Last Admin: 09/16/19 04:20 Dose: 100 mls/hr Insulin Aspart (Novolog) 0 unit SUBCUT TIDAC ON LICENSE OF [facility]; Protocol Last Admin: 09/15/19 17:17 Dose: Not Given Metoclopramide HCl (Reglan) 5 mg IVPUSH Q6H PRN PRN Reason: Nausea Last Admin: 09/15/19 10:34 Dose: 5 mg Ondansetron HCl (Zofran) 8 mg IVPUSH Q6H PRN PRN Reason: Nausea/Vomiting Pantoprazole Sodium (Protonix) 40 mg PO ACBREAKFAST ON LICENSE OF [facility] Last Admin: 09/16/19 06:35 Dose: 40 mg Discontinued Medications Acetaminophen (Tylenol Extra Strength) 1,000 mg PO ONETIME ONE Stop: 09/15/19 02:22 Last Admin: 09/15/19 02:25 Dose: 1,000 mg Sodium Chloride (Normal Saline) 1,000 mls @ 1,000 mls/hr IV .Bolus ONE Stop: 09/14/19 23:37 Last Admin: 09/15/19 04:40 Dose: Not Given Sodium Chloride (Normal Saline) 1,000 mls @ 999 mls/hr IV .Bolus ONE Stop: 09/14/19 23:38 Last Admin: 09/14/19 22:46 Dose: 999 mls/hr Cefazolin Sodium/Dextrose 1 gm (/ Premix) 50 mls @ 100 mls/hr IV ONETIME ONE Stop: 09/15/19 00:18 Last Admin: 09/14/19 23:56 Dose: 100 mls/hr Sodium Chloride (Normal Saline) 1,000 mls @ 1,000 mls/hr IV .Bolus ONE Stop: 09/15/19 00:52 Last Admin: 09/14/19 23:56 Dose: 1,000 mls/hr Metronidazole 500 mg/ Premix 100 mls @ 100 mls/hr IV ONETIME ONE Stop: 09/15/19 02:45 Last Admin: 09/15/19 01:56 Dose: 100 mls/hr Ceftriaxone Sodium/Dextrose 1 (gm/ Premix) 50 mls @ 100 mls/hr IV Q24H ON LICENSE OF [facility] Last Admin: 09/15/19 06:04 Dose: 100 mls/hr Piperacillin Sod/Tazobactam (Sod 3.375 gm/ Sodium Chloride) 100 mls @ 200 mls/ hr IV Q6H ON LICENSE OF [facility] Ondansetron HCl (Zofran) 4 mg IVPUSH ONETIME ONE Stop: 09/14/19 22:36 Last Admin: 09/15/19 04:40 Dose: Not Given Ondansetron HCl (Zofran) 4 mg IVPUSH ONETIME ONE Stop: 09/14/19 22:39 Last Admin: 09/14/19 22:46 Dose: 4 mg Ondansetron HCl (Zofran) 4 mg IVPUSH ONETIME ONE Stop: 09/15/19 01:29 Last Admin: 09/15/19 01:32 Dose: 4 mg Ondansetron HCl (Zofran) Confirm Administered Dose 4 mg .ROUTE .STK-MED ONE Stop: 09/15/19 01:29 Last Admin: 09/15/19 01:34 Dose: Not Given Ondansetron HCl (Zofran) 4 mg IVPUSH Q4H PRN PRN Reason: Nausea/Vomiting Last Admin: 09/15/19 08:33 Dose: 4 mg Ondansetron HCl (Zofran) 8 mg IVPUSH Q4H PRN PRN Reason: Nausea/Vomiting - Exam General: Alert, Oriented, Cooperative, No Acute Distress HEENT: Pupils Equal, Pupils Reactive Lungs: Clear to Auscultation, Normal Respiratory Effort Cardiovascular: Regular Rate, Regular Rhythm GI/Abdominal Exam: Soft, Non-Tender, No Distention, No Mass Extremities: Normal Inspection, Normal Range of Motion Sepsis Event Note - Evaluation Sepsis Screening Result: No Definite Risk - Focused Exam Vital Signs: Vital Signs Temp Temp Pulse Resp BP Pulse Ox 09/16/19 07:15 36.9 C 92 16 142/76 H 93 L 09/16/19 04:00 37.1 C 100 18 135/74 94 L 09/16/19 00:45 37.2 C 100 18 130/66 94 L Date Exam was Performed: 09/16/19 Time Exam was Performed: 09:03 Consult PN Assessment/Plan (1) Symptomatic cholelithiasis SNOMED Code(s): 249722644, 101749805 Code(s): K80.20 - CALCULUS OF GALLBLADDER W/O CHOLECYSTITIS W/O OBSTRUCTION Current Visit: Yes Problem List Initiated/Reviewed/Updated: Yes Plan: Patient blood cultures are growing gram negative rods. Her likely source of infection is her UTI. Alk phos is about the same. No need for a cholecystectomy at this time. Ok to advance diet as tolerated and switch to oral antibiotics per medicine team. Follow up in my clinic in 1-2 weeks however patient needs to have a PCP established here to get her diabetes under control.
[2019-09-16] MEDS: Insulin Aspart 100 Units/ML 3 ML Pen SUBCUT SCH ×3 (09:40→17:46)
[2019-09-16] MEDS: Sodium Chloride 0.9% 1,000 ML IV SCH (09:50)
--- NOTE | 2019-09-16 11:32 | PCM.PN ---
- General Info Date of Service: 09/16/19 - Review of Systems Systems Review Comment:: feeling better - Patient Data Vitals - Most Recent: Last Vital Signs Temp 36.9 C 09/16/19 07:15 Pulse 92 09/16/19 07:15 Resp 16 09/16/19 07:15 BP 142/76 H 09/16/19 09:45 Pulse Ox 93 L 09/16/19 07:15 Weight - Most Recent: 65.907 kg I&O - Last 24 Hours: Intake & Output 09/15/19 09/16/19 09/16/19 22:59 06:59 14:59 Intake Total 1951 1219 Output Total 1800 Balance 151 1219 Lab Results Last 24 Hours: Laboratory Results - last 24 hr 09/14/19 09/15/19 09/15/19 Range/Units 22:33 11:17 11:17 WBC (4.0-11.0) K/uL RBC (4.30-5.90) M/uL Hgb (12.0-16.0) g/dL Hct (36.0-46.0) % MCV (80.0-98.0) fL MCH (27.0-32.0) pg MCHC (31.0-37.0) g/dL RDW Std Deviation (28.0-62.0) fl RDW Coeff of Stacie (11.0-15.0) % Plt Count (150-400) K/uL MPV (7.40-12.00) fL Neut % (Auto) (48.0-80.0) % Lymph % (Auto) (16.0-40.0) % Riley % (Auto) (0.0-15.0) % Eos % (Auto) (0.0-7.0) % Baso % (Auto) (0.0-1.5) % Neut # (Auto) (1.4-5.7) K/uL Lymph # (Auto) (0.6-2.4) K/uL Riley # (Auto) (0.0-0.8) K/uL Eos # (Auto) (0.0-0.7) K/uL Baso # (Auto) (0.0-0.1) K/uL Nucleated RBC % /100WBC Nucleated RBCs # K/uL Lactate (0.20-2.00) mmol/L Sodium (136-145) mmol/L Potassium (3.5-5.1) mmol/L Chloride (98-107) mmol/L Carbon Dioxide (21.0-32.0) mmol/L BUN (7.0-18.0) mg/dL Creatinine (0.6-1.0) mg/dL Est Cr Clr Drug Dosing mL/min Estimated GFR (MDRD) ml/min Glucose (74-106) mg/dL POC Glucose 273 H (60-110) mg/dL Calcium (8.5-10.1) mg/dL Total Bilirubin (0.2-1.0) mg/dL AST (15-37) IU/L ALT (14-63) IU/L Alkaline Phosphatase (46-116) U/L Total Protein (6.4-8.2) g/dL Albumin (3.4-5.0) g/dL Globulin (2.6-4.0) g/dL Albumin/Globulin Ratio (0.9-1.6) Lipase (73-393) U/L Urine Osmolality 235 L (300-900) mosm/kg Ur Random Creatinine 12.6 mg/dL U Random Total Protein 11.5 (<11.9) mg/dL Ur Random Sodium 84.0 (40.0-220.0) mmol/L Protein/Creatinin Ratio 0.9 09/15/19 09/15/19 09/15/19 Range/Units 11:49 14:58 14:58 WBC (4.0-11.0) K/uL RBC (4.30-5.90) M/uL Hgb (12.0-16.0) g/dL Hct (36.0-46.0) % MCV (80.0-98.0) fL MCH (27.0-32.0) pg MCHC (31.0-37.0) g/dL RDW Std Deviation (28.0-62.0) fl RDW Coeff of Stacie (11.0-15.0) % Plt Count (150-400) K/uL MPV (7.40-12.00) fL Neut % (Auto) (48.0-80.0) % Lymph % (Auto) (16.0-40.0) % Riley % (Auto) (0.0-15.0) % Eos % (Auto) (0.0-7.0) % Baso % (Auto) (0.0-1.5) % Neut # (Auto) (1.4-5.7) K/uL Lymph # (Auto) (0.6-2.4) K/uL Riley # (Auto) (0.0-0.8) K/uL Eos # (Auto) (0.0-0.7) K/uL Baso # (Auto) (0.0-0.1) K/uL Nucleated RBC % /100WBC Nucleated RBCs # K/uL Lactate (0.20-2.00) mmol/L Sodium 130 L (136-145) mmol/L Potassium 3.8 (3.5-5.1) mmol/L Chloride 95 L (98-107) mmol/L Carbon Dioxide 28.1 (21.0-32.0) mmol/L BUN 6 L (7.0-18.0) mg/dL Creatinine 0.9 (0.6-1.0) mg/dL Est Cr Clr Drug Dosing 57.71 mL/min Estimated GFR (MDRD) > 60.0 ml/min Glucose 142 H (74-106) mg/dL POC Glucose 211 H (60-110) mg/dL Calcium 8.5 (8.5-10.1) mg/dL Total Bilirubin (0.2-1.0) mg/dL AST (15-37) IU/L ALT (14-63) IU/L Alkaline Phosphatase (46-116) U/L Total Protein (6.4-8.2) g/dL Albumin (3.4-5.0) g/dL Globulin (2.6-4.0) g/dL Albumin/Globulin Ratio (0.9-1.6) Lipase 60 L (73-393) U/L Urine Osmolality (300-900) mosm/kg Ur Random Creatinine mg/dL U Random Total Protein (<11.9) mg/dL Ur Random Sodium (40.0-220.0) mmol/L Protein/Creatinin Ratio 09/15/19 09/15/19 09/15/19 Range/Units 14:58 14:58 16:08 WBC 8.73 (4.0-11.0) K/uL RBC 3.69 L (4.30-5.90) M/uL Hgb 10.3 L (12.0-16.0) g/dL Hct 30.6 L (36.0-46.0) % MCV 82.9 (80.0-98.0) fL MCH 27.9 (27.0-32.0) pg MCHC 33.7 (31.0-37.0) g/dL RDW Std Deviation 41.7 (28.0-62.0) fl RDW Coeff of Stacie 14 (11.0-15.0) % Plt Count 293 (150-400) K/uL MPV 11.10 (7.40-12.00) fL Neut % (Auto) 75.2 (48.0-80.0) % Lymph % (Auto) 16.7 (16.0-40.0) % Riley % (Auto) 7.9 (0.0-15.0) % Eos % (Auto) 0.1 (0.0-7.0) % Baso % (Auto) 0.1 (0.0-1.5) % Neut # (Auto) 6.6 H (1.4-5.7) K/uL Lymph # (Auto) 1.5 (0.6-2.4) K/uL Riley # (Auto) 0.7 (0.0-0.8) K/uL Eos # (Auto) 0.0 (0.0-0.7) K/uL Baso # (Auto) 0.0 (0.0-0.1) K/uL Nucleated RBC % 0.0 /100WBC Nucleated RBCs # 0 K/uL Lactate 0.7 (0.20-2.00) mmol/L Sodium 131 L (136-145) mmol/L Potassium 3.8 (3.5-5.1) mmol/L Chloride 95 L (98-107) mmol/L Carbon Dioxide 28.2 (21.0-32.0) mmol/L BUN 6 L (7.0-18.0) mg/dL Creatinine 0.9 (0.6-1.0) mg/dL Est Cr Clr Drug Dosing 57.71 mL/min Estimated GFR (MDRD) > 60.0 ml/min Glucose 144 H (74-106) mg/dL POC Glucose (60-110) mg/dL Calcium 8.5 (8.5-10.1) mg/dL Total Bilirubin 0.3 (0.2-1.0) mg/dL AST 14 L (15-37) IU/L ALT 22 (14-63) IU/L Alkaline Phosphatase 130 H (46-116) U/L Total Protein 7.1 (6.4-8.2) g/dL Albumin 2.5 L (3.4-5.0) g/dL Globulin 4.6 H (2.6-4.0) g/dL Albumin/Globulin Ratio 0.5 L (0.9-1.6) Lipase (73-393) U/L Urine Osmolality (300-900) mosm/kg Ur Random Creatinine mg/dL U Random Total Protein (<11.9) mg/dL Ur Random Sodium (40.0-220.0) mmol/L Protein/Creatinin Ratio 09/15/19 09/16/19 09/16/19 Range/Units 16:59 06:05 06:05 WBC 9.86 (4.0-11.0) K/uL RBC 3.60 L (4.30-5.90) M/uL Hgb 10.2 L (12.0-16.0) g/dL Hct 30.1 L (36.0-46.0) % MCV 83.6 (80.0-98.0) fL MCH 28.3 (27.0-32.0) pg MCHC 33.9 (31.0-37.0) g/dL RDW Std Deviation 41.8 (28.0-62.0) fl RDW Coeff of Stacie 14 (11.0-15.0) % Plt Count 306 (150-400) K/uL MPV 10.50 (7.40-12.00) fL Neut % (Auto) 63.4 (48.0-80.0) % Lymph % (Auto) 22.9 (16.0-40.0) % Riley % (Auto) 13.1 (0.0-15.0) % Eos % (Auto) 0.4 (0.0-7.0) % Baso % (Auto) 0.2 (0.0-1.5) % Neut # (Auto) 6.3 H (1.4-5.7) K/uL Lymph # (Auto) 2.3 (0.6-2.4) K/uL Riley # (Auto) 1.3 H (0.0-0.8) K/uL Eos # (Auto) 0.0 (0.0-0.7) K/uL Baso # (Auto) 0.0 (0.0-0.1) K/uL Nucleated RBC % 0.0 /100WBC Nucleated RBCs # 0 K/uL Lactate (0.20-2.00) mmol/L Sodium 131 L (136-145) mmol/L Potassium 3.8 (3.5-5.1) mmol/L Chloride 96 L (98-107) mmol/L Carbon Dioxide 26.8 (21.0-32.0) mmol/L BUN 4 L (7.0-18.0) mg/dL Creatinine 0.8 (0.6-1.0) mg/dL Est Cr Clr Drug Dosing 64.92 mL/min Estimated GFR (MDRD) > 60.0 ml/min Glucose 156 H (74-106) mg/dL POC Glucose 118 H (60-110) mg/dL Calcium 8.4 L (8.5-10.1) mg/dL Total Bilirubin 0.5 (0.2-1.0) mg/dL AST 12 L (15-37) IU/L ALT 20 (14-63) IU/L Alkaline Phosphatase 145 H (46-116) U/L Total Protein 6.8 (6.4-8.2) g/dL Albumin 2.3 L (3.4-5.0) g/dL Globulin 4.5 H (2.6-4.0) g/dL Albumin/Globulin Ratio 0.5 L (0.9-1.6) Lipase (73-393) U/L Urine Osmolality (300-900) mosm/kg Ur Random Creatinine mg/dL U Random Total Protein (<11.9) mg/dL Ur Random Sodium (40.0-220.0) mmol/L Protein/Creatinin Ratio 09/16/19 09/16/19 Range/Units 06:38 09:37 WBC (4.0-11.0) K/uL RBC (4.30-5.90) M/uL Hgb (12.0-16.0) g/dL Hct (36.0-46.0) % MCV (80.0-98.0) fL MCH (27.0-32.0) pg MCHC (31.0-37.0) g/dL RDW Std Deviation (28.0-62.0) fl RDW Coeff of Stacie (11.0-15.0) % Plt Count (150-400) K/uL MPV (7.40-12.00) fL Neut % (Auto) (48.0-80.0) % Lymph % (Auto) (16.0-40.0) % Riley % (Auto) (0.0-15.0) % Eos % (Auto) (0.0-7.0) % Baso % (Auto) (0.0-1.5) % Neut # (Auto) (1.4-5.7) K/uL Lymph # (Auto) (0.6-2.4) K/uL Riley # (Auto) (0.0-0.8) K/uL Eos # (Auto) (0.0-0.7) K/uL Baso # (Auto) (0.0-0.1) K/uL Nucleated RBC % /100WBC Nucleated RBCs # K/uL Lactate (0.20-2.00) mmol/L Sodium (136-145) mmol/L Potassium (3.5-5.1) mmol/L Chloride (98-107) mmol/L Carbon Dioxide (21.0-32.0) mmol/L BUN (7.0-18.0) mg/dL Creatinine (0.6-1.0) mg/dL Est Cr Clr Drug Dosing mL/min Estimated GFR (MDRD) ml/min Glucose (74-106) mg/dL POC Glucose 150 H 136 H (60-110) mg/dL Calcium (8.5-10.1) mg/dL Total Bilirubin (0.2-1.0) mg/dL AST (15-37) IU/L ALT (14-63) IU/L Alkaline Phosphatase (46-116) U/L Total Protein (6.4-8.2) g/dL Albumin (3.4-5.0) g/dL Globulin (2.6-4.0) g/dL Albumin/Globulin Ratio (0.9-1.6) Lipase (73-393) U/L Urine Osmolality (300-900) mosm/kg Ur Random Creatinine mg/dL U Random Total Protein (<11.9) mg/dL Ur Random Sodium (40.0-220.0) mmol/L Protein/Creatinin Ratio Matty Results Last 24 Hours: Microbiology 09/15/19 01:50 Aerobic Blood Culture - Preliminary Blood - Venous - Lab Draw Anaerobic Blood Culture - Preliminary NO GROWTH AFTER 1 DAY 09/15/19 01:38 Aerobic Blood Culture - Preliminary Blood - Venous NO GROWTH AFTER 1 DAY Anaerobic Blood Culture - Final 09/15/19 17:05 Campylobacter Antigen Assay - Final Stool / Feces NEGATIVE CAMPYLOBACTER AG REFERENCE RANGE: NEGATIVE Med Orders - Current: Current Medications Acetaminophen (Tylenol) 650 mg PO Q6H PRN PRN Reason: Pain Last Admin: 09/15/19 13:35 Dose: 650 mg Enalapril Maleate (Vasotec) 20 mg PO DAILY [facility] Last Admin: 09/16/19 09:45 Dose: 20 mg Heparin Sodium (Porcine) (Heparin Sodium) 5,000 units SUBCUT Q8H [facility] Sodium Chloride (Normal Saline) 1,000 mls @ 125 mls/hr IV ASDIRECTED [facility] Last Admin: 09/16/19 09:50 Dose: 125 mls/hr Piperacillin Sod/Tazobactam (Sod 3.375 gm/ Sodium Chloride) 50 mls @ 100 mls/ hr IV Q6H [facility] Last Admin: 09/16/19 09:47 Dose: 100 mls/hr Insulin Aspart (Novolog) 0 unit SUBCUT TIDAC [facility]; Protocol Last Admin: 09/16/19 09:40 Dose: Not Given Metoclopramide HCl (Reglan) 5 mg IVPUSH Q6H PRN PRN Reason: Nausea Last Admin: 09/15/19 10:34 Dose: 5 mg Ondansetron HCl (Zofran) 8 mg IVPUSH Q6H PRN PRN Reason: Nausea/Vomiting Pantoprazole Sodium (Protonix) 40 mg PO ACBREAKFAST [facility] Last Admin: 09/16/19 06:35 Dose: 40 mg Discontinued Medications Acetaminophen (Tylenol Extra Strength) 1,000 mg PO ONETIME ONE Stop: 09/15/19 02:22 Last Admin: 09/15/19 02:25 Dose: 1,000 mg Sodium Chloride (Normal Saline) 1,000 mls @ 1,000 mls/hr IV .Bolus ONE Stop: 09/14/19 23:37 Last Admin: 09/15/19 04:40 Dose: Not Given Sodium Chloride (Normal Saline) 1,000 mls @ 999 mls/hr IV .Bolus ONE Stop: 09/14/19 23:38 Last Admin: 09/14/19 22:46 Dose: 999 mls/hr Cefazolin Sodium/Dextrose 1 gm (/ Premix) 50 mls @ 100 mls/hr IV ONETIME ONE Stop: 09/15/19 00:18 Last Admin: 09/14/19 23:56 Dose: 100 mls/hr Sodium Chloride (Normal Saline) 1,000 mls @ 1,000 mls/hr IV .Bolus ONE Stop: 09/15/19 00:52 Last Admin: 09/14/19 23:56 Dose: 1,000 mls/hr Metronidazole 500 mg/ Premix 100 mls @ 100 mls/hr IV ONETIME ONE Stop: 09/15/19 02:45 Last Admin: 09/15/19 01:56 Dose: 100 mls/hr Ceftriaxone Sodium/Dextrose 1 (gm/ Premix) 50 mls @ 100 mls/hr IV Q24H [facility] Last Admin: 09/15/19 06:04 Dose: 100 mls/hr Piperacillin Sod/Tazobactam (Sod 3.375 gm/ Sodium Chloride) 100 mls @ 200 mls/ hr IV Q6H [facility] Ondansetron HCl (Zofran) 4 mg IVPUSH ONETIME ONE Stop: 09/14/19 22:36 Last Admin: 09/15/19 04:40 Dose: Not Given Ondansetron HCl (Zofran) 4 mg IVPUSH ONETIME ONE Stop: 09/14/19 22:39 Last Admin: 09/14/19 22:46 Dose: 4 mg Ondansetron HCl (Zofran) 4 mg IVPUSH ONETIME ONE Stop: 09/15/19 01:29 Last Admin: 09/15/19 01:32 Dose: 4 mg Ondansetron HCl (Zofran) Confirm Administered Dose 4 mg .ROUTE .STK-MED ONE Stop: 09/15/19 01:29 Last Admin: 09/15/19 01:34 Dose: Not Given Ondansetron HCl (Zofran) 4 mg IVPUSH Q4H PRN PRN Reason: Nausea/Vomiting Last Admin: 09/15/19 08:33 Dose: 4 mg Ondansetron HCl (Zofran) 8 mg IVPUSH Q4H PRN PRN Reason: Nausea/Vomiting - Exam General: Alert, Cooperative Lungs: Clear to Auscultation, Normal Respiratory Effort Cardiovascular: Regular Rate, Regular Rhythm GI/Abdominal Exam: Soft, Non-Tender, No Distention Extremities: Non-Tender, No Pedal Edema Skin: Warm, Dry, Intact Neurological: No New Focal Deficit Sepsis Event Note - Evaluation Sepsis Screening Result: No Definite Risk - Focused Exam Vital Signs: Vital Signs Temp Temp Pulse Resp BP BP Pulse Ox 09/16/19 09:45 142/76 H 09/16/19 07:15 36.9 C 92 16 142/76 H 93 L 09/16/19 04:00 37.1 C 100 18 135/74 94 L 09/16/19 00:45 37.2 C 100 18 130/66 94 L Date Exam was Performed: 09/16/19 Time Exam was Performed: 11:30 - Problem List Review Problem List Initiated/Reviewed/Updated: Yes - My Orders Last 24 Hours: My Active Orders 09/16/19 11:30 CULTURE BLOOD [BC] Stat CULTURE BLOOD [BC] Stat Heparin Sodium 5,000 units SUBCUT Q8H Blood Culture x2 Reflex Set [OM.PC] Stat 09/17/19 05:11 BASIC METABOLIC PANEL,BMP [CHEM] AM CBC WITH AUTO DIFF [HEME] AM 09/18/19 05:11 BASIC METABOLIC PANEL,BMP [CHEM] AM CBC WITH AUTO DIFF [HEME] AM 09/19/19 05:11 BASIC METABOLIC PANEL,BMP [CHEM] AM CBC WITH AUTO DIFF [HEME] AM - Plan Plan:: A54 yo female admitted with UTI. UTI/gram negative danitza bacteremia: continue zosyn RUQ pain: U/S showing gallstones. Dr. Atkins consulted and does not recommend cholecystectomy at this time DM: novolog ssi
[2019-09-16] MEDS: Heparin Sodium 5,000 Units/ML Vial SUBCUT SCH ×2 (13:08→19:00)
[2019-09-17] MEDS: Heparin Sodium 5,000 Units/ML Vial SUBCUT SCH ×3 (03:04→18:43)
[2019-09-17] MEDS: Piperacillin/Tazobactam 3.375 GM in Sodium Chloride 0.9% 50 ML IV SCH ×2 (03:04→09:03)
[2019-09-17 06:23] LABS: BLOOD UREA NITROGEN,BUN 4 mg/dL (7.0-18.0); CARBON DIOXIDE,CO2 27.3 mmol/L (21.0-32.0); CHLORIDE,CL 99 mmol/L (98-107); GLUCOSE RANDOM 139 mg/dL (74-106); POTASSIUM,K 3.8 mmol/L (3.5-5.1); SODIUM,NA 134 mmol/L (136-145)
[2019-09-17] MEDS: Insulin Aspart 100 Units/ML 3 ML Pen SUBCUT SCH ×3 (06:33→16:59)
[2019-09-17] MEDS: Pantoprazole 40 MG Tab.CR PO SCH (06:47)
--- NOTE | 2019-09-17 12:35 | PCM.PN ---
- General Info Date of Service: 09/17/19 - Review of Systems Systems Review Comment:: denies any pain or fevers - Patient Data Vitals - Most Recent: Last Vital Signs Temp 36.9 C 09/17/19 07:08 Pulse 75 09/17/19 07:08 Resp 16 09/17/19 07:08 BP 163/78 H 09/17/19 09:02 Pulse Ox 94 L 09/17/19 07:08 Weight - Most Recent: 65.907 kg I&O - Last 24 Hours: Intake & Output 09/16/19 09/17/19 09/17/19 22:59 06:59 14:59 Intake Total 2774 1350 Output Total 1400 1600 Balance 1374 -250 Lab Results Last 24 Hours: Laboratory Results - last 24 hr 09/16/19 09/16/19 09/17/19 Range/Units 12: 16:47 05:59 WBC (4.0-11.0) K/uL RBC (4.30-5.90) M/uL Hgb (12.0-16.0) g/dL Hct (36.0-46.0) % MCV (80.0-98.0) fL MCH (27.0-32.0) pg MCHC (31.0-37.0) g/dL RDW Std Deviation (28.0-62.0) fl RDW Coeff of Tsacie (11.0-15.0) % Plt Count (150-400) K/uL MPV (7.40-12.00) fL Add Manual Diff Neutrophils % (Manual) (48.0-80.0) % Band Neutrophils % % Lymphocytes % (Manual) (16.0-40.0) % Monocytes % (Manual) (0.0-15.0) % Eosinophils % (Manual) (0.0-7.0) % Nucleated RBC % /100WBC Absolute Seg Neuts (1.4-5.7) Band Neutrophils # Lymphocytes # (Manual) (0.6-2.4) Monocytes # (Manual) (0.0-0.8) Eosinophils # (Manual) (0.0-0.7) Nucleated RBCs # K/uL Sodium (136-145) mmol/L Potassium (3.5-5.1) mmol/L Chloride (98-107) mmol/L Carbon Dioxide (21.0-32.0) mmol/L BUN (7.0-18.0) mg/dL Creatinine (0.6-1.0) mg/dL Est Cr Clr Drug Dosing mL/min Estimated GFR (MDRD) ml/min Glucose (74-106) mg/dL POC Glucose 235 H 225 H 140 H (60-110) mg/dL Calcium (8.5-10.1) mg/dL 09/17/19 09/17/19 Range/Units 06:00 06:00 WBC 9.85 (4.0-11.0) K/uL RBC 3.44 L (4.30-5.90) M/uL Hgb 9.7 L (12.0-16.0) g/dL Hct 28.8 L (36.0-46.0) % MCV 83.7 (80.0-98.0) fL MCH 28.2 (27.0-32.0) pg MCHC 33.7 (31.0-37.0) g/dL RDW Std Deviation 41.9 (28.0-62.0) fl RDW Coeff of Stacie 14 (11.0-15.0) % Plt Count 312 (150-400) K/uL MPV 10.10 (7.40-12.00) fL Add Manual Diff YES Neutrophils % (Manual) 53 (48.0-80.0) % Band Neutrophils % 2 % Lymphocytes % (Manual) 35 (16.0-40.0) % Monocytes % (Manual) 9 (0.0-15.0) % Eosinophils % (Manual) 1 (0.0-7.0) % Nucleated RBC % 0.0 /100WBC Absolute Seg Neuts 5.2 (1.4-5.7) Band Neutrophils # 0.2 Lymphocytes # (Manual) 3.4 H (0.6-2.4) Monocytes # (Manual) 0.9 H (0.0-0.8) Eosinophils # (Manual) 0.1 (0.0-0.7) Nucleated RBCs # 0 K/uL Sodium 134 L (136-145) mmol/L Potassium 3.8 (3.5-5.1) mmol/L Chloride 99 (98-107) mmol/L Carbon Dioxide 27.3 (21.0-32.0) mmol/L BUN 4 L (7.0-18.0) mg/dL Creatinine 0.8 (0.6-1.0) mg/dL Est Cr Clr Drug Dosing 64.92 mL/min Estimated GFR (MDRD) > 60.0 ml/min Glucose 139 H (74-106) mg/dL POC Glucose (60-110) mg/dL Calcium 9.0 (8.5-10.1) mg/dL Matty Results Last 24 Hours: Microbiology 09/16/19 11:53 Aerobic Blood Culture - Preliminary Blood - Venous - Lab Draw NO GROWTH AFTER 1 DAY Anaerobic Blood Culture - Preliminary NO GROWTH AFTER 1 DAY 09/16/19 11:53 Aerobic Blood Culture - Preliminary Blood - Venous NO GROWTH AFTER 1 DAY Anaerobic Blood Culture - Preliminary NO GROWTH AFTER 1 DAY 09/15/19 17:05 Stool Culture - Final Stool / Feces NO SALMONELLA, SHIGELLA,OR E.COLI O157 ISOLATED Campylobacter Antigen Assay - Final NEGATIVE CAMPYLOBACTER AG REFERENCE RANGE: NEGATIVE Shiga Toxin I - Final NEGATIVE FOR SHIGA TOXIN 1 REFERENCE RANGE: NEGATIVE Shiga Toxin II - Final NEGATIVE FOR SHIGA TOXIN 2 REFERENCE RANGE: NEGATIVE 09/15/19 01:50 Aerobic Blood Culture - Final Blood - Venous - Lab Draw Escherichia Coli Anaerobic Blood Culture - Preliminary NO GROWTH AFTER 2 DAYS 09/14/19 22:22 Urine Culture - Final Urine, Clean Catch Escherichia Coli Normal Urogenital Sarah 09/15/19 01:38 Aerobic Blood Culture - Preliminary Blood - Venous NO GROWTH AFTER 2 DAYS Anaerobic Blood Culture - Final Med Orders - Current: Current Medications Acetaminophen (Tylenol) 650 mg PO Q6H PRN PRN Reason: Pain Last Admin: 09/15/19 13:35 Dose: 650 mg Enalapril Maleate (Vasotec) 20 mg PO DAILY [facility] Last Admin: 09/17/19 09:02 Dose: 20 mg Heparin Sodium (Porcine) (Heparin Sodium) 5,000 units SUBCUT Q8H [facility] Last Admin: 09/17/19 12:01 Dose: 5,000 units Ertapenem 1 gm/ Sodium (Chloride) 50 mls @ 100 mls/hr IV Q24H [facility] Insulin Aspart (Novolog) 0 unit SUBCUT TIDAC [facility]; Protocol Last Admin: 09/17/19 06:33 Dose: Not Given Metoclopramide HCl (Reglan) 5 mg IVPUSH Q6H PRN PRN Reason: Nausea Last Admin: 09/15/19 10:34 Dose: 5 mg Ondansetron HCl (Zofran) 8 mg IVPUSH Q6H PRN PRN Reason: Nausea/Vomiting Pantoprazole Sodium (Protonix) 40 mg PO ACBREAKFAST [facility] Last Admin: 09/17/19 06:47 Dose: 40 mg Discontinued Medications Acetaminophen (Tylenol Extra Strength) 1,000 mg PO ONETIME ONE Stop: 09/15/19 02:22 Last Admin: 09/15/19 02:25 Dose: 1,000 mg Sodium Chloride (Normal Saline) 1,000 mls @ 1,000 mls/hr IV .Bolus ONE Stop: 09/14/19 23:37 Last Admin: 09/15/19 04:40 Dose: Not Given Sodium Chloride (Normal Saline) 1,000 mls @ 999 mls/hr IV .Bolus ONE Stop: 09/14/19 23:38 Last Admin: 09/14/19 22:46 Dose: 999 mls/hr Cefazolin Sodium/Dextrose 1 gm (/ Premix) 50 mls @ 100 mls/hr IV ONETIME ONE Stop: 09/15/19 00:18 Last Admin: 09/14/19 23:56 Dose: 100 mls/hr Sodium Chloride (Normal Saline) 1,000 mls @ 1,000 mls/hr IV .Bolus ONE Stop: 09/15/19 00:52 Last Admin: 09/14/19 23:56 Dose: 1,000 mls/hr Metronidazole 500 mg/ Premix 100 mls @ 100 mls/hr IV ONETIME ONE Stop: 09/15/19 02:45 Last Admin: 09/15/19 01:56 Dose: 100 mls/hr Ceftriaxone Sodium/Dextrose 1 (gm/ Premix) 50 mls @ 100 mls/hr IV Q24H [facility] Last Admin: 09/15/19 06:04 Dose: 100 mls/hr Sodium Chloride (Normal Saline) 1,000 mls @ 125 mls/hr IV ASDIRECTED [facility] Last Admin: 09/16/19 09:50 Dose: 125 mls/hr Piperacillin Sod/Tazobactam (Sod 3.375 gm/ Sodium Chloride) 100 mls @ 200 mls/ hr IV Q6H [facility] Piperacillin Sod/Tazobactam (Sod 3.375 gm/ Sodium Chloride) 50 mls @ 100 mls/ hr IV Q6H [facility] Last Admin: 09/17/19 09:03 Dose: 100 mls/hr Ondansetron HCl (Zofran) 4 mg IVPUSH ONETIME ONE Stop: 09/14/19 22:36 Last Admin: 09/15/19 04:40 Dose: Not Given Ondansetron HCl (Zofran) 4 mg IVPUSH ONETIME ONE Stop: 09/14/19 22:39 Last Admin: 09/14/19 22:46 Dose: 4 mg Ondansetron HCl (Zofran) 4 mg IVPUSH ONETIME ONE Stop: 09/15/19 01:29 Last Admin: 09/15/19 01:32 Dose: 4 mg Ondansetron HCl (Zofran) Confirm Administered Dose 4 mg .ROUTE .STK-MED ONE Stop: 09/15/19 01:29 Last Admin: 09/15/19 01:34 Dose: Not Given Ondansetron HCl (Zofran) 4 mg IVPUSH Q4H PRN PRN Reason: Nausea/Vomiting Last Admin: 09/15/19 08:33 Dose: 4 mg Ondansetron HCl (Zofran) 8 mg IVPUSH Q4H PRN PRN Reason: Nausea/Vomiting - Exam General: Alert, Oriented HEENT: Mucous Membr. Moist/[place] Neck: Supple Lungs: Clear to Auscultation, Normal Respiratory Effort Extremities: Non-Tender, No Pedal Edema Skin: Warm, Dry, Intact Sepsis Event Note - Evaluation Sepsis Screening Result: No Definite Risk - Focused Exam Vital Signs: Vital Signs Temp Pulse Resp BP BP BP Pulse Ox 09/17/19 09:02 163/78 H 09/17/19 07:08 36.9 C 75 16 163/78 H 94 L 09/17/19 03:58 37.0 C 82 16 161/78 H 94 L Date Exam was Performed: 09/17/19 Time Exam was Performed: 12:33 - Problem List Review Problem List Initiated/Reviewed/Updated: Yes - My Orders Last 24 Hours: My Active Orders 09/16/19 11:53 CULTURE BLOOD [BC] Stat CULTURE BLOOD [BC] Stat 09/16/19 12:24 [employer] Man Discontinue [Cardiac Monitoring Discontinue] [RC] Click to Edit 09/17/19 15:00 Ertapenem [INVanz] 1 gm Sodium Chloride 0.9% [Normal Saline] 50 ml IV Q24H 09/18/19 05:11 BASIC METABOLIC PANEL,BMP [CHEM] AM BASIC METABOLIC PANEL,BMP [CHEM] AM CBC WITH AUTO DIFF [HEME] AM CBC WITH AUTO DIFF [HEME] AM 09/19/19 05:11 BASIC METABOLIC PANEL,BMP [CHEM] AM CBC WITH AUTO DIFF [HEME] AM - Plan Plan:: A54 yo female admitted with UTI. ESBL ecoli bacteremia/UTI: will switch to Ertapenem RUQ pain: U/S showing gallstones. Dr. Atkins consulted and does not recommend cholecystectomy at this time DM: novolog ssi Anticipate discharge home tomorrow once outpatient antibiotic therapy arranged.
[2019-09-17] MEDS ORDERED: Ertapenem 1 GM in Sodium Chloride 0.9% 50 ML IV SCH (15:00)
[2019-09-18] MEDS: Heparin Sodium 5,000 Units/ML Vial SUBCUT SCH ×2 (04:02→11:43)
[2019-09-18 04:37] LABS: BLOOD UREA NITROGEN,BUN 5 mg/dL (7.0-18.0); CARBON DIOXIDE,CO2 29.9 mmol/L (21.0-32.0); CHLORIDE,CL 101 mmol/L (98-107); GLUCOSE RANDOM 184 mg/dL (74-106); POTASSIUM,K 3.8 mmol/L (3.5-5.1); SODIUM,NA 138 mmol/L (136-145)
[2019-09-18] MEDS: Pantoprazole 40 MG Tab.CR PO SCH (06:40)
[2019-09-18] MEDS: Insulin Aspart 100 Units/ML 3 ML Pen SUBCUT SCH ×2 (08:46→12:24)
--- NOTE | 2019-09-18 11:46 | PCM.DCSUM1 ---
<Gurmeet Alvarenga - Last Filed: 09/18/19 13:57> Discharge Summary - Hospital Course Free Text/Narrative:: Discharge summary Admission date 09-15-2019 Discharge date 09-18-2019 Admission diagnoses: UTI Dehydration PMH:DM Discharge diagnoses: ESBL Bactermia/UTI PMH: uncontrolled DM Gallstones Consultations: Dr Atkins of surgery Procedures: None Hospital course: Patient is a Kazakh-speaking only 54-year-old female with a past medical history of type 2 diabetes on metformin presenting after 2 weeks of increasing nausea vomiting and subjective fever and chills. Patient is traveling here from [facility] and reports prior to leaving [facility] being diagnosed with a UTI; no antibiotics were given prior to leaving [facility]; however patient was advised to drink plenty of fluids. However was unable to keep fluids down secondary to nausea and vomiting x 7- days prior to admission. ED Course: CT abdomen pelvis without contrast did not show any deep-seated infection; patient was admitted for UTI in the setting of dehydration. Admission: Continued on ceftriaxone however repeat physical examination showed right upper quadrant tenderness. Ultrasound showed gallstones without gallbladder thickening. Dr. Zuleta of surgery was consulted; recommended treat UTI and bacteremia and follow-up outpatient for possible cholecystectomy; switched abx. to Zosyn. Fevers resolved withing 24 hours of admission. Blood cultures returned positive for ESBL E. coli; patient initiated on ertapenem 1 g daily x7 days; received 2-doses inpatient. Patient sent home with 5 additional days of outpatient IV infusion of ertapenem. Diabetes: Elevated A1c; initiated patient on 2.5 mg daily of glyburide on top of her home dose of metformin. Outpatient community educator consult placed. Day of discharge: Patient has been afebrile for greater than 48 hours and requesting to go home. Patient was asymptomatic and stable at discharge; follow -up appointments scheduled. Patient will return daily for the next 5 days for IV infusions and follow-up with primary care. Eating /drinking /stooling and urinating prior to discharge. Discharge condition:Stable Disposition: Home Discharge medications: Ertapenem+Glyburide+ Enalapril+ Metformin Follow-up: PCP, healthcare educator ; outpatient IV infusion/cancer center - Discharge Data Discharge Date: 09/18/19 Discharge Disposition: Home, Self-Care 01 Condition: Stable - Referral to Home Health Primary Care Physician: PCP None - Patient Summary/Data Consults: Consultations 09/15/19 17:02 Consult to Physician [CONS] Routine 09/15/19 18:21 Consult to Drywall Taper [Consult to Diabetic Nurse Specialist] [CONS] Routine - Patient Instructions Diet: Diabetic Diet Notify Provider of: Fever, Increased Pain, Nausea and/or Vomiting - Discharge Plan Prescriptions/Med Rec: Ertapenem [INVanz] 1 gm IV Q24H 5 Days #5 vial glyBURIDE [Glyburide] 2.5 mg PO WITHBREAKFAST 14 Days #14 tablet Home Medications: Home Meds Enalapril Maleate 20 mg PO DAILY 09/14/19 [History] metFORMIN [Glucophage] 1,000 mg PO BIDMEALS 09/14/19 [History] Acetaminophen [Tylenol] 650 mg PO Q6H PRN tablet 09/18/19 [Rx] Ertapenem [INVanz] 1 gm IV Q24H 5 Days #5 vial 09/18/19 [Rx] glyBURIDE [Glyburide] 2.5 mg PO WITHBREAKFAST 14 Days #14 tablet 09/18/19 [Rx] Patient Handouts: Ertapenem injection, Urinary Tract Infection, Adult, Easy-to- Read, Glyburide tablets Referrals: Nathalia Jeffers DO [Resident] - 09/25/19 8:30 am Sherif Storey [Ordering Only Provider] - Katie Atkins MD [Physician] - 10/02/19 8:00 am - Discharge Summary/Plan Comment DC Time >30 min.: No - Patient Data Vitals - Most Recent: Last Vital Signs Temp 98.8 F 09/18/19 07:43 Pulse 73 09/18/19 07:43 Resp 16 09/18/19 07:43 BP 165/62 H 09/18/19 08:46 Pulse Ox 95 09/18/19 07:43 Weight - Most Recent: 65.907 kg I&O - Last 24 hours: Intake & Output 09/17/19 09/18/19 09/18/19 22:59 06:59 14:59 Intake Total 960 1320 Output Total 1300 1700 Balance -340 -380 Lab Results - Last 24 hrs: Laboratory Results - last 24 hr 09/17/19 09/17/19 09/17/19 Range/Units 12:03 15:35 16:27 WBC (4.0-11.0) K/uL RBC (4.30-5.90) M/uL Hgb (12.0-16.0) g/dL Hct (36.0-46.0) % MCV (80.0-98.0) fL MCH (27.0-32.0) pg MCHC (31.0-37.0) g/dL RDW Std Deviation (28.0-62.0) fl RDW Coeff of Stacie (11.0-15.0) % Plt Count (150-400) K/uL MPV (7.40-12.00) fL Neut % (Auto) (48.0-80.0) % Lymph % (Auto) (16.0-40.0) % [place] % (Auto) (0.0-15.0) % Eos % (Auto) (0.0-7.0) % Baso % (Auto) (0.0-1.5) % Neut # (Auto) (1.4-5.7) K/uL Lymph # (Auto) (0.6-2.4) K/uL [place] # (Auto) (0.0-0.8) K/uL Eos # (Auto) (0.0-0.7) K/uL Baso # (Auto) (0.0-0.1) K/uL Nucleated RBC % /100WBC Nucleated RBCs # K/uL Sodium (136-145) mmol/L Potassium (3.5-5.1) mmol/L Chloride (98-107) mmol/L Carbon Dioxide (21.0-32.0) mmol/L BUN (7.0-18.0) mg/dL Creatinine (0.6-1.0) mg/dL Est Cr Clr Drug Dosing mL/min Estimated GFR (MDRD) ml/min Glucose (74-106) mg/dL POC Glucose 196 H 236 H (60-110) mg/dL Calcium (8.5-10.1) mg/dL Troponin I < 0.050 (0.000-0.056) ng/mL 09/17/19 09/18/19 09/18/19 Range/Units 22:19 04:15 04:15 WBC 8.58 (4.0-11.0) K/uL RBC 3.52 L (4.30-5.90) M/uL Hgb 9.9 L (12.0-16.0) g/dL Hct 29.7 L (36.0-46.0) % MCV 84.4 (80.0-98.0) fL MCH 28.1 (27.0-32.0) pg MCHC 33.3 (31.0-37.0) g/dL RDW Std Deviation 41.8 (28.0-62.0) fl RDW Coeff of Stacie 14 (11.0-15.0) % Plt Count 369 (150-400) K/uL MPV 9.70 (7.40-12.00) fL Neut % (Auto) 50.0 (48.0-80.0) % Lymph % (Auto) 38.2 (16.0-40.0) % [place] % (Auto) 8.7 (0.0-15.0) % Eos % (Auto) 2.8 (0.0-7.0) % Baso % (Auto) 0.3 (0.0-1.5) % Neut # (Auto) 4.3 (1.4-5.7) K/uL Lymph # (Auto) 3.3 H (0.6-2.4) K/uL [place] # (Auto) 0.8 (0.0-0.8) K/uL Eos # (Auto) 0.2 (0.0-0.7) K/uL Baso # (Auto) 0.0 (0.0-0.1) K/uL Nucleated RBC % 0.0 /100WBC Nucleated RBCs # 0 K/uL Sodium 138 (136-145) mmol/L Potassium 3.8 (3.5-5.1) mmol/L Chloride 101 (98-107) mmol/L Carbon Dioxide 29.9 (21.0-32.0) mmol/L BUN 5 L (7.0-18.0) mg/dL Creatinine 0.6 (0.6-1.0) mg/dL Est Cr Clr Drug Dosing 86.56 mL/min Estimated GFR (MDRD) > 60.0 ml/min Glucose 184 H (74-106) mg/dL POC Glucose (60-110) mg/dL Calcium 9.1 (8.5-10.1) mg/dL Troponin I < 0.050 (0.000-0.056) ng/mL 09/18/19 09/18/19 Range/Units 04:15 06:39 WBC (4.0-11.0) K/uL RBC (4.30-5.90) M/uL Hgb (12.0-16.0) g/dL Hct (36.0-46.0) % MCV (80.0-98.0) fL MCH (27.0-32.0) pg MCHC (31.0-37.0) g/dL RDW Std Deviation (28.0-62.0) fl RDW Coeff of Stacie (11.0-15.0) % Plt Count (150-400) K/uL MPV (7.40-12.00) fL Neut % (Auto) (48.0-80.0) % Lymph % (Auto) (16.0-40.0) % [place] % (Auto) (0.0-15.0) % Eos % (Auto) (0.0-7.0) % Baso % (Auto) (0.0-1.5) % Neut # (Auto) (1.4-5.7) K/uL Lymph # (Auto) (0.6-2.4) K/uL [place] # (Auto) (0.0-0.8) K/uL Eos # (Auto) (0.0-0.7) K/uL Baso # (Auto) (0.0-0.1) K/uL Nucleated RBC % /100WBC Nucleated RBCs # K/uL Sodium (136-145) mmol/L Potassium (3.5-5.1) mmol/L Chloride (98-107) mmol/L Carbon Dioxide (21.0-32.0) mmol/L BUN (7.0-18.0) mg/dL Creatinine (0.6-1.0) mg/dL Est Cr Clr Drug Dosing mL/min Estimated GFR (MDRD) ml/min Glucose (74-106) mg/dL POC Glucose 169 H (60-110) mg/dL Calcium (8.5-10.1) mg/dL Troponin I < 0.050 (0.000-0.056) ng/mL FÁTIMA Results - Last 24 hrs: Microbiology 09/15/19 01:50 Aerobic Blood Culture - Final Blood - Venous - Lab Draw Escherichia Coli Anaerobic Blood Culture - Preliminary NO GROWTH AFTER 3 DAYS 09/15/19 01:38 Aerobic Blood Culture - Preliminary Blood - Venous NO GROWTH AFTER 3 DAYS Anaerobic Blood Culture - Final 09/16/19 11:53 Aerobic Blood Culture - Preliminary Blood - Venous - Lab Draw NO GROWTH AFTER 1 DAY Anaerobic Blood Culture - Preliminary NO GROWTH AFTER 1 DAY 09/16/19 11:53 Aerobic Blood Culture - Preliminary Blood - Venous NO GROWTH AFTER 1 DAY Anaerobic Blood Culture - Preliminary NO GROWTH AFTER 1 DAY 09/15/19 17:05 Stool Culture - Final Stool / Feces NO SALMONELLA, SHIGELLA,OR E.COLI O157 ISOLATED Campylobacter Antigen Assay - Final NEGATIVE CAMPYLOBACTER AG REFERENCE RANGE: NEGATIVE Shiga Toxin I - Final NEGATIVE FOR SHIGA TOXIN 1 REFERENCE RANGE: NEGATIVE Shiga Toxin II - Final NEGATIVE FOR SHIGA TOXIN 2 REFERENCE RANGE: NEGATIVE 09/14/19 22:22 Urine Culture - Final Urine, Clean Catch Escherichia Coli Normal Urogenital Sarah Med Orders - Current: Current Medications Acetaminophen (Tylenol) 650 mg PO Q6H PRN PRN Reason: Pain Last Admin: 09/15/19 13:35 Dose: 650 mg Enalapril Maleate (Vasotec) 20 mg PO DAILY [facility] Last Admin: 09/18/19 08:46 Dose: 20 mg Heparin Sodium (Porcine) (Heparin Sodium) 5,000 units SUBCUT Q8H [facility] Last Admin: 09/18/19 11:43 Dose: 5,000 units Ertapenem 1 gm/ Sodium (Chloride) 50 mls @ 100 mls/hr IV Q24H [facility] Last Admin: 09/17/19 15:07 Dose: 100 mls/hr Insulin Aspart (Novolog) 0 unit SUBCUT TIDAC [facility]; Protocol Last Admin: 09/18/19 08:46 Dose: 2 units Metoclopramide HCl (Reglan) 5 mg IVPUSH Q6H PRN PRN Reason: Nausea Last Admin: 09/15/19 10:34 Dose: 5 mg Ondansetron HCl (Zofran) 8 mg IVPUSH Q6H PRN PRN Reason: Nausea/Vomiting Pantoprazole Sodium (Protonix) 40 mg PO ACBREAKFAST [facility] Last Admin: 09/18/19 06:40 Dose: 40 mg Discontinued Medications Acetaminophen (Tylenol Extra Strength) 1,000 mg PO ONETIME ONE Stop: 09/15/19 02:22 Last Admin: 09/15/19 02:25 Dose: 1,000 mg Sodium Chloride (Normal Saline) 1,000 mls @ 1,000 mls/hr IV .Bolus ONE Stop: 09/14/19 23:37 Last Admin: 09/15/19 04:40 Dose: Not Given Sodium Chloride (Normal Saline) 1,000 mls @ 999 mls/hr IV .Bolus ONE Stop: 09/14/19 23:38 Last Admin: 09/14/19 22:46 Dose: 999 mls/hr Cefazolin Sodium/Dextrose 1 gm (/ Premix) 50 mls @ 100 mls/hr IV ONETIME ONE Stop: 09/15/19 00:18 Last Admin: 09/14/19 23:56 Dose: 100 mls/hr Sodium Chloride (Normal Saline) 1,000 mls @ 1,000 mls/hr IV .Bolus ONE Stop: 09/15/19 00:52 Last Admin: 09/14/19 23:56 Dose: 1,000 mls/hr Metronidazole 500 mg/ Premix 100 mls @ 100 mls/hr IV ONETIME ONE Stop: 09/15/19 02:45 Last Admin: 09/15/19 01:56 Dose: 100 mls/hr Ceftriaxone Sodium/Dextrose 1 (gm/ Premix) 50 mls @ 100 mls/hr IV Q24H [facility] Last Admin: 09/15/19 06:04 Dose: 100 mls/hr Sodium Chloride (Normal Saline) 1,000 mls @ 125 mls/hr IV ASDIRECTED [facility] Last Admin: 09/16/19 09:50 Dose: 125 mls/hr Piperacillin Sod/Tazobactam (Sod 3.375 gm/ Sodium Chloride) 100 mls @ 200 mls/ hr IV Q6H [facility] Piperacillin Sod/Tazobactam (Sod 3.375 gm/ Sodium Chloride) 50 mls @ 100 mls/ hr IV Q6H [facility] Last Admin: 09/17/19 09:03 Dose: 100 mls/hr Ondansetron HCl (Zofran) 4 mg IVPUSH ONETIME ONE Stop: 09/14/19 22:36 Last Admin: 09/15/19 04:40 Dose: Not Given Ondansetron HCl (Zofran) 4 mg IVPUSH ONETIME ONE Stop: 09/14/19 22:39 Last Admin: 09/14/19 22:46 Dose: 4 mg Ondansetron HCl (Zofran) 4 mg IVPUSH ONETIME ONE Stop: 09/15/19 01:29 Last Admin: 09/15/19 01:32 Dose: 4 mg Ondansetron HCl (Zofran) Confirm Administered Dose 4 mg .ROUTE .STK-MED ONE Stop: 09/15/19 01:29 Last Admin: 09/15/19 01:34 Dose: Not Given Ondansetron HCl (Zofran) 4 mg IVPUSH Q4H PRN PRN Reason: Nausea/Vomiting Last Admin: 09/15/19 08:33 Dose: 4 mg Ondansetron HCl (Zofran) 8 mg IVPUSH Q4H PRN PRN Reason: Nausea/Vomiting <Billy Cunha J - Last Filed: 09/21/19 14:32> Discharge Summary - Referral to Home Health Primary Care Physician: PCP None - Patient Summary/Data Consults: Consultations 09/15/19 17:02 Consult to Physician [CONS] Routine 09/15/19 18:21 Consult to Drywall Taper [Consult to Diabetic Nurse Specialist] [CONS] Routine - Patient Data Vitals - Most Recent: Last Vital Signs Temp 36.8 C 09/18/19 12:00 Pulse 76 09/18/19 12:00 Resp 16 09/18/19 12:00 BP 144/79 H 09/18/19 12:00 Pulse Ox 95 09/18/19 12:00 FÁTIMA Results - Last 24 hrs: Microbiology 09/16/19 11:53 Aerobic Blood Culture - Final Blood - Venous - Lab Draw NO GROWTH AFTER 5 DAYS Anaerobic Blood Culture - Final NO GROWTH AFTER 5 DAYS 09/16/19 11:53 Aerobic Blood Culture - Final Blood - Venous NO GROWTH AFTER 5 DAYS Anaerobic Blood Culture - Final NO GROWTH AFTER 5 DAYS Med Orders - Current: Current Medications Discontinued Medications Acetaminophen (Tylenol Extra Strength) 1,000 mg PO ONETIME ONE Stop: 09/15/19 02:22 Last Admin: 09/15/19 02:25 Dose: 1,000 mg Acetaminophen (Tylenol) 650 mg PO Q6H PRN PRN Reason: Pain Last Admin: 09/15/19 13:35 Dose: 650 mg Enalapril Maleate (Vasotec) 20 mg PO DAILY [facility] Last Admin: 09/18/19 08:46 Dose: 20 mg Heparin Sodium (Porcine) (Heparin Sodium) 5,000 units SUBCUT Q8H [facility] Last Admin: 09/18/19 11:43 Dose: 5,000 units Sodium Chloride (Normal Saline) 1,000 mls @ 1,000 mls/hr IV .Bolus ONE Stop: 09/14/19 23:37 Last Admin: 09/15/19 04:40 Dose: Not Given Sodium Chloride (Normal Saline) 1,000 mls @ 999 mls/hr IV .Bolus ONE Stop: 09/14/19 23:38 Last Admin: 09/14/19 22:46 Dose: 999 mls/hr Cefazolin Sodium/Dextrose 1 gm (/ Premix) 50 mls @ 100 mls/hr IV ONETIME ONE Stop: 09/15/19 00:18 Last Admin: 09/14/19 23:56 Dose: 100 mls/hr Sodium Chloride (Normal Saline) 1,000 mls @ 1,000 mls/hr IV .Bolus ONE Stop: 09/15/19 00:52 Last Admin: 09/14/19 23:56 Dose: 1,000 mls/hr Metronidazole 500 mg/ Premix 100 mls @ 100 mls/hr IV ONETIME ONE Stop: 09/15/19 02:45 Last Admin: 09/15/19 01:56 Dose: 100 mls/hr Ceftriaxone Sodium/Dextrose 1 (gm/ Premix) 50 mls @ 100 mls/hr IV Q24H [facility] Last Admin: 09/15/19 06:04 Dose: 100 mls/hr Sodium Chloride (Normal Saline) 1,000 mls @ 125 mls/hr IV ASDIRECTED [facility] Last Admin: 09/16/19 09:50 Dose: 125 mls/hr Piperacillin Sod/Tazobactam (Sod 3.375 gm/ Sodium Chloride) 100 mls @ 200 mls/ hr IV Q6H [facility] Piperacillin Sod/Tazobactam (Sod 3.375 gm/ Sodium Chloride) 50 mls @ 100 mls/ hr IV Q6H [facility] Last Admin: 09/17/19 09:03 Dose: 100 mls/hr Ertapenem 1 gm/ Sodium (Chloride) 50 mls @ 100 mls/hr IV Q24H [facility] Last Admin: 09/17/19 15:07 Dose: 100 mls/hr Insulin Aspart (Novolog) 0 unit SUBCUT TIDAC [facility]; Protocol Last Admin: 09/18/19 12:24 Dose: 2 units Metoclopramide HCl (Reglan) 5 mg IVPUSH Q6H PRN PRN Reason: Nausea Last Admin: 09/15/19 10:34 Dose: 5 mg Ondansetron HCl (Zofran) 4 mg IVPUSH ONETIME ONE Stop: 09/14/19 22:36 Last Admin: 09/15/19 04:40 Dose: Not Given Ondansetron HCl (Zofran) 4 mg IVPUSH ONETIME ONE Stop: 09/14/19 22:39 Last Admin: 09/14/19 22:46 Dose: 4 mg Ondansetron HCl (Zofran) 4 mg IVPUSH ONETIME ONE Stop: 09/15/19 01:29 Last Admin: 09/15/19 01:32 Dose: 4 mg Ondansetron HCl (Zofran) Confirm Administered Dose 4 mg .ROUTE .STK-MED ONE Stop: 09/15/19 01:29 Last Admin: 09/15/19 01:34 Dose: Not Given Ondansetron HCl (Zofran) 4 mg IVPUSH Q4H PRN PRN Reason: Nausea/Vomiting Last Admin: 09/15/19 08:33 Dose: 4 mg Ondansetron HCl (Zofran) 8 mg IVPUSH Q4H PRN PRN Reason: Nausea/Vomiting Ondansetron HCl (Zofran) 8 mg IVPUSH Q6H PRN PRN Reason: Nausea/Vomiting Pantoprazole Sodium (Protonix) 40 mg PO ACBREAKFAST [facility] Last Admin: 09/18/19 06:40 Dose: 40 mg - Free Text/Narrative Note: I have examined patient with resident. I have discussed findings and treatment plan with the resident. I agree with the assessment and plan as outlined in the following note.
== END 2019-09-18 13:45 | disposition home or self-care (01) | DRG 872 ==
LOC: MW.ED 22:07 → EDBD 09-15 04:01 → MW.MS 09-15 04:01 → EEVIPCON 09-15 04:01 → MW.MS 09-17 11:50
PROVIDERS: ADMIT Internal Medicine; ATTEND Internal Medicine
DX: A41.9 Sepsis, unspecified organism (principal); N39.0 Urinary tract infection, site not specified; E87.1 Hypo-osmolality and hyponatremia; E86.0 Dehydration; B96.20 Unspecified Escherichia coli [E. coli] as the cause of diseases classified elsewhere; E11.9 Type 2 diabetes mellitus without complications; K80.80 Other cholelithiasis without obstruction; I10 Essential (primary) hypertension; Z79.84 Long term (current) use of oral hypoglycemic drugs; Z79.899 Other long term (current) drug therapy
CPT/HCPCS: 36415; 74022; 74022-26; 74176; 74176-26; 76705; 76705-26; 80048; 80053; 81001; 82570; 82962; 83036; 83605; 83690; 83935; 84156; 84300; 84484; 85025; 87040; 87046; 87077; 87086; 87088; 87186; 87338; 87804; 87899; 93005; 96361; 96365; 96367; 96375; 96376; 99284; 99285-25; A9270-GY; J0690; J0696; J1335; J1644; J1815-GY; J2405; J2543; J2765; J3490; J7030; J7050

== ENCOUNTER 2020-09-15 19:33 | Observation (INO) | payer SELFPAY ==
[2020-09-15] MEDS ORDERED: Ondansetron 4 MG/2 ML SDV IVPUSH ONE (19:58)
[2020-09-15] MEDS ORDERED: Sodium Chloride 0.9% 1,000 ML IV ONE (19:58)
--- NOTE | 2020-09-15 20:01 | EDM.PDOC ---
ED HPI GENERAL MEDICAL PROBLEM - General Chief Complaint: Abdominal Pain Stated Complaint: VOMITING Time Seen by Provider: 09/15/20 19:58 Source of Information: Reports: Patient History Limitations: Reports: No Limitations - History of Present Illness INITIAL COMMENTS - FREE TEXT/NARRATIVE: HISTORY AND PHYSICAL: History of present illness: Patient is a 55-year-old female who presents to the emergency room with complaints of generalized abdominal pain, nausea and vomiting x1 day. She states she vomits nearly after every time she tried to eat or drink today. Generalized abdominal pain but more so in the upper abdomen when wreching/vomiting. Patient denies any fever, chills, headache, change in vision, syncope or near syncope. Denies any chest pain, back pain, shortness of breath or cough. Denies any diarrhea, constipation or dysuria. Denies any flank pain, vaginal bleeding/discharge or concerns of STIs. Has not noted any blood in urine or stool. Patient has been eating and drinking appropriately. PMH of DM Type 2 and HTN -takes medication daily for both of these, compliant. CROATIAN SPEAKING ONLY -translation services was utilized. Review of systems: As per history of present illness and below otherwise all systems reviewed and negative. Past medical history: As per history of present illness and as reviewed below otherwise noncontributory. Surgical history: As per history of present illness and as reviewed below otherwise noncontributory. Social history: See social history for further information Family history: As per history of present illness and as reviewed below otherwise noncontributory. Physical exam: General: Well developed and well nourished. Alert and orientated x 3. Nontoxic in appearance and in no acute distress. Vital signs are stable and have been reviewed by me. Nursing notes were reviewed. HEENT: Atraumatic, normocephalic, pupils equal and reactive bilaterally, negative for conjunctival pallor or scleral icterus, mucous membranes dry/tacky, TMs normal bilaterally, throat clear, neck supple, nontender, trachea midline. No drooling or trismus noted. No meningeal signs. No hot potato voice noted. Lungs: Clear to auscultation, breath sounds equal bilaterally, chest nontender. Normal work of breathing, no accessory muscles used. Heart: S1S2, regular rate and rhythm without overt murmur Abdomen: Soft, nondistended, nontender. Negative for masses or hepatosplenomegaly. Negative for costovertebral tenderness. Pelvis: Stable nontender. Skin: Intact, warm, dry. No lesions or rashes noted. Hematologic: No petechiae or purpra. Mucosa appropriate color and normal nail bed color and refill. Extremities: Atraumatic, moves all extremities per self without difficulty or deficits, negative for cords or calf pain. Neurovascular unremarkable. Neuro: Awake, alert, oriented. Cranial nerves II through XII unremarkable. Cerebellum unremarkable. Motor and sensory unremarkable throughout. Exam nonfocal. Psychiatric: Mood and affect are appropriate. Normal thought process. Answering questions appropriately. Notes: No neurolgical symptoms. Denies any cardiovascular or seizure history. Patient has no nausea or vomiting after the IV fluid and Zofran. I have talked with the patient about today's findings, in addition to providing specific details for plan of care. We did discuss admission which she is agreeable to. Dr. Reyes was consulted on this patient and she is agreeable for admission. Diagnostics: CBC, CMP, UA, HCGU, Lipase Therapeutics: IV fluids, Zofran Impression: Hyponatremia Dehydration Plan: Observation admission to Med/Surg Definitive disposition and diagnosis as appropriate pending reevaluation and review of above. Upper Abdomen Pain Score (Numeric/FACES): 4 - Related Data Allergies Allergy/AdvReac Type Severity Reaction Status Date / Time No Known Allergies Allergy Verified 09/15/20 20:05 Home Meds: Home Meds Enalapril Maleate 20 mg PO DAILY 09/14/19 [History] metFORMIN [Glucophage] 1,000 mg PO BIDMEALS 09/14/19 [History] Acetaminophen [Tylenol] 650 mg PO Q6H PRN tablet 09/18/19 [Rx] Ertapenem [INVanz] 1 gm IV Q24H 5 Days #5 vial 09/18/19 [Rx] glyBURIDE [Glyburide] 2.5 mg PO WITHBREAKFAST 14 Days #14 tablet 09/18/19 [Rx] hydroCHLOROthiazide [Hydrochlorothiazide] 25 mg PO DAILY 09/15/20 [History] Past Medical History HEENT History: Reports: None Cardiovascular History: Reports: Hypertension Respiratory History: Reports: None Gastrointestinal History: Reports: None Genitourinary History: Reports: None 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: Musculoskeletal History: Reports: None Neurological History: Reports: None Psychiatric History: Reports: None Endocrine/Metabolic History: Reports: Diabetes, Type II Insulin Pump Model and Electronic Warfare Technical: None Hematologic History: Reports: None Immunologic History: Reports: None Oncologic (Cancer) History: Reports: None Dermatologic History: Reports: None - Infectious Disease History Infectious Disease History: Reports: None - Past Surgical History Head Surgeries/Procedures: Reports: None Social & Family History - Family History Family Medical History: No Pertinent Family History Cardiac: Reports: Hypertension : Reports: Other (See Below) Other Family History: kidney transplant Endocrine/Metabolic: Reports: Diabetes, type II - Caffeine Use Caffeine Use: Reports: None ED ROS GENERAL - Review of Systems Review Of Systems: Comprehensive ROS is negative, except as noted in HPI. ED EXAM, GI/ABD - Physical Exam Exam: See Below (See dictation) Course - Vital Signs Last Recorded V/S: Last Vital Signs Temp 97.9 F 09/15/20 19:50 Pulse 82 09/15/20 19:50 Resp 18 09/15/20 19:50 BP 154/73 H 09/15/20 19:50 Pulse Ox 100 09/15/20 19:50 - Orders/Labs/Meds Orders: Active Orders 24 hr Category Date Time Status Admission Status [Patient Status] [ADT] Stat ADT 09/15/20 21:00 Active EKG Documentation Completion [RC] STAT Care 09/15/20 20:45 Active Labs: Laboratory Tests 09/15/20 09/15/20 09/15/20 Range/Units 20:00 20:05 20:05 WBC 8.82 (4.0-11.0) K/uL RBC 4.67 (4.30-5.90) M/uL Hgb 13.0 (12.0-16.0) g/dL Hct 37.4 (36.0-46.0) % MCV 80.1 (80.0-98.0) fL MCH 27.8 (27.0-32.0) pg MCHC 34.8 (31.0-37.0) g/dL RDW Std Deviation 42.7 (28.0-62.0) fl RDW Coeff of Stacie 15 (11.0-15.0) % Plt Count 342 (150-400) K/uL MPV 10.30 (7.40-12.00) fL Neut % (Auto) 46.8 L (48.0-80.0) % Lymph % (Auto) 42.9 H (16.0-40.0) % [place] % (Auto) 7.7 (0.0-15.0) % Eos % (Auto) 2.3 (0.0-7.0) % Baso % (Auto) 0.3 (0.0-1.5) % Neut # (Auto) 4.1 (1.4-5.7) K/uL Lymph # (Auto) 3.8 H (0.6-2.4) K/uL [place] # (Auto) 0.7 (0.0-0.8) K/uL Eos # (Auto) 0.2 (0.0-0.7) K/uL Baso # (Auto) 0.0 (0.0-0.1) K/uL Nucleated RBC % 0.0 /100WBC Nucleated RBCs # 0 K/uL Sodium 119 L* (136-145) mmol/L Potassium 3.8 (3.5-5.1) mmol/L Chloride 84 L (98-107) mmol/L Carbon Dioxide 27.6 (21.0-32.0) mmol/L BUN 14 (7.0-18.0) mg/dL Creatinine 1.2 H (0.6-1.0) mg/dL Est Cr Clr Drug Dosing 38.50 mL/min Estimated GFR (MDRD) 46.8 ml/min Glucose 179 H (74-106) mg/dL Calcium 9.5 (8.5-10.1) mg/dL Total Bilirubin 0.3 (0.2-1.0) mg/dL AST 10 L (15-37) IU/L ALT 15 (14-63) IU/L Alkaline Phosphatase 79 (46-116) U/L Total Protein 8.9 H (6.4-8.2) g/dL Albumin 4.2 (3.4-5.0) g/dL Globulin 4.7 H (2.6-4.0) g/dL Albumin/Globulin Ratio 0.9 (0.9-1.6) Lipase 379 (73-393) U/L Urine Color YELLOW Urine Appearance CLEAR Urine pH 6.0 (5.0-8.0) Ur Specific [place] 1.015 (1.001-1.035) Urine Protein NEGATIVE (NEGATIVE) mg/dL Urine Glucose (UA) 250 H (NEGATIVE) mg/dL Urine Ketones NEGATIVE (NEGATIVE) mg/dL Urine Occult Blood TRACE-INTACT H (NEGATIVE) Urine Nitrite NEGATIVE (NEGATIVE) Urine Bilirubin NEGATIVE (NEGATIVE) Urine Urobilinogen 0.2 (<2.0) EU/dL Ur Leukocyte Esterase NEGATIVE (NEGATIVE) Urine RBC 0-2 (0-2/HPF) Urine WBC 0-1 (0-5/HPF) Ur Epithelial Cells RARE (NONE-FEW) Urine Bacteria FEW (NEGATIVE) Urine HCG, Qual (NEGATIVE) SARS-CoV-2 RNA (PINEDA) (NEGATIVE) 09/15/20 09/15/20 Range/Units 20:06 20:18 WBC (4.0-11.0) K/uL RBC (4.30-5.90) M/uL Hgb (12.0-16.0) g/dL Hct (36.0-46.0) % MCV (80.0-98.0) fL MCH (27.0-32.0) pg MCHC (31.0-37.0) g/dL RDW Std Deviation (28.0-62.0) fl RDW Coeff of Stacie (11.0-15.0) % Plt Count (150-400) K/uL MPV (7.40-12.00) fL Neut % (Auto) (48.0-80.0) % Lymph % (Auto) (16.0-40.0) % [place] % (Auto) (0.0-15.0) % Eos % (Auto) (0.0-7.0) % Baso % (Auto) (0.0-1.5) % Neut # (Auto) (1.4-5.7) K/uL Lymph # (Auto) (0.6-2.4) K/uL [place] # (Auto) (0.0-0.8) K/uL Eos # (Auto) (0.0-0.7) K/uL Baso # (Auto) (0.0-0.1) K/uL Nucleated RBC % /100WBC Nucleated RBCs # K/uL Sodium (136-145) mmol/L Potassium (3.5-5.1) mmol/L Chloride (98-107) mmol/L Carbon Dioxide (21.0-32.0) mmol/L BUN (7.0-18.0) mg/dL Creatinine (0.6-1.0) mg/dL Est Cr Clr Drug Dosing mL/min Estimated GFR (MDRD) ml/min Glucose (74-106) mg/dL Calcium (8.5-10.1) mg/dL Total Bilirubin (0.2-1.0) mg/dL AST (15-37) IU/L ALT (14-63) IU/L Alkaline Phosphatase (46-116) U/L Total Protein (6.4-8.2) g/dL Albumin (3.4-5.0) g/dL Globulin (2.6-4.0) g/dL Albumin/Globulin Ratio (0.9-1.6) Lipase (73-393) U/L Urine Color Urine Appearance Urine pH (5.0-8.0) Ur Specific [place] (1.001-1.035) Urine Protein (NEGATIVE) mg/dL Urine Glucose (UA) (NEGATIVE) mg/dL Urine Ketones (NEGATIVE) mg/dL Urine Occult Blood (NEGATIVE) Urine Nitrite (NEGATIVE) Urine Bilirubin (NEGATIVE) Urine Urobilinogen (<2.0) EU/dL Ur Leukocyte Esterase (NEGATIVE) Urine RBC (0-2/HPF) Urine WBC (0-5/HPF) Ur Epithelial Cells (NONE-FEW) Urine Bacteria (NEGATIVE) Urine HCG, Qual NEGATIVE (NEGATIVE) SARS-CoV-2 RNA (PINEDA) NEGATIVE (NEGATIVE) Meds: Medications Discontinued Medications Generic Name Dose Route Start Last Admin Trade Name Freq PRN Reason Stop Dose Admin Sodium Chloride 1,000 mls @ 999 mls/hr 09/15/20 19:58 09/15/20 20:11 Normal Saline IV 09/15/20 20:58 999 mls/hr STAT ONE Administration Ondansetron HCl 4 mg 09/15/20 19:58 09/15/20 20:10 Zofran IVPUSH 09/15/20 19:59 4 mg ONETIME ONE Administration Departure - Departure Time of Disposition: 21:04 Disposition: Refer to Observation Clinical Impression: Hyponatremia, Dehydration - Discharge Information Referrals: PCP,None [Primary Care Provider] - Forms: ED Department Discharge Sepsis Event Note (ED) - Focused Exam Vital Signs: Vital Signs Temp Pulse Resp BP Pulse Ox 12/27/20 19:50 97.9 F 82 18 154/73 H 100 - My Orders Last 24 Hours: My Active Orders 09/15/20 20:45 EKG Documentation Completion [RC] STAT 09/15/20 21:00 Admission Status [Patient Status] [ADT] Stat - Assessment/Plan Last 24 Hours: My Active Orders 09/15/20 20:45 EKG Documentation Completion [RC] STAT 09/15/20 21:00 Admission Status [Patient Status] [ADT] Stat
[2020-09-15 20:24] LABS: CARBON DIOXIDE,CO2 27.6 mmol/L (21.0-32.0); POTASSIUM,K 3.8 mmol/L (3.5-5.1)
--- NOTE | 2020-09-15 20:53 | PCM.SN.2 ---
- Free Text/Narrative Note: Time 847pm Rate 85 NSR no WEI
[2020-09-15] MEDS ORDERED: Acetaminophen 325 MG Tab PO PRN (21:10)
[2020-09-15] MEDS ORDERED: Ondansetron 4 MG/2 ML SDV IVPUSH PRN (21:10)
[2020-09-15] MEDS ORDERED: Albuterol/Ipratropium 3.0-0.5 MG/3 ML Neb Soln NEB PRN (21:10)
[2020-09-15] MEDS ORDERED: Morphine 2 MG/ML SYRINGE IVPUSH PRN (21:16)
--- NOTE | 2020-09-15 21:21 | PCM.HP.2 ---
H&P History of Present Illness - General Date of Service: 09/15/20 Admit Problem/Dx: Admission Diagnosis/Problem Admission Diagnosis/Problem Hyponatremia - History of Present Illness Initial Comments - Free Text/Narative: Patient is a 55-year-old female with PMH of DM type 2, HTN who presents to the emergency room with complaints of generalized abdominal pain, nausea and vomiting x1 day, she is unable to keep anything down. She has some abdominal pain but attributes it to her wreching/vomiting. Patient denies any fever, chills, headache, change in vision, syncope or near syncope. Denies any chest pain, back pain, shortness of breath or cough. Denies any diarrhea, constipation or dysuria. Denies any flank pain, vaginal bleeding/discharge or concerns of STIs. Has not noted any blood in urine or stool. Patient has been eating and drinking appropriately. 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 patient was admitted for further management. Upper Abdomen Pain Score (Numeric/FACES): 4 - Related Data Allergies/Adverse Reactions: Allergies Allergy/AdvReac Type Severity Reaction Status Date / Time No Known Allergies Allergy Verified 09/15/20 20:05 Home Medications: Home Meds Enalapril Maleate 20 mg PO DAILY 09/14/19 [History] metFORMIN [Glucophage] 1,000 mg PO BIDMEALS 09/14/19 [History] Acetaminophen [Tylenol] 650 mg PO Q6H PRN tablet 09/18/19 [Rx] Ertapenem [INVanz] 1 gm IV Q24H 5 Days #5 vial 09/18/19 [Rx] glyBURIDE [Glyburide] 2.5 mg PO WITHBREAKFAST 14 Days #14 tablet 09/18/19 [Rx] hydroCHLOROthiazide [Hydrochlorothiazide] 25 mg PO DAILY 09/15/20 [History] Past Medical History HEENT History: Reports: None Cardiovascular History: Reports: Hypertension Respiratory History: Reports: None Gastrointestinal History: Reports: None Genitourinary History: Reports: None 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: Musculoskeletal History: Reports: None Neurological History: Reports: None Psychiatric History: Reports: None Endocrine/Metabolic History: Reports: Diabetes, Type II Insulin Pump Model and Graphic Design Manager: None Hematologic History: Reports: None Immunologic History: Reports: None Oncologic (Cancer) History: Reports: None Dermatologic History: Reports: None - Infectious Disease History Infectious Disease History: Reports: None - Past Surgical History Head Surgeries/Procedures: Reports: None Social & Family History - Family History Family Medical History: No Pertinent Family History Cardiac: Reports: Hypertension : Reports: Other (See Below) Other Family History: kidney transplant Endocrine/Metabolic: Reports: Diabetes, type II - Tobacco Use Tobacco Use Status *Q: Never Tobacco User - Caffeine Use Caffeine Use: Reports: None - Recreational Drug Use Recreational Drug Use: No H&P Review of Systems - Review of Systems: Review Of Systems: See Below General: Reports: Malaise, Weakness, Fatigue. Denies: Fever, Chills Pulmonary: Denies: Shortness of Breath, Wheezing Cardiovascular: Denies: Chest Pain, Palpitations, Dyspnea on Exertion Gastrointestinal: Reports: Abdominal Pain, Anorexia, Nausea, Vomiting. Denies: Black Stool, Bloody Stool, Constipation, Difficulty Swallowing, Stool Incontinence Genitourinary: Denies: Dysuria, Frequency, Burning Musculoskeletal: Denies: Neck Pain, Shoulder Pain, Arm Pain Skin: Denies: Cyanosis, Jaundice, Pallor, Diaphoresis Psychiatric: Denies: Confusion, Depression, Mood Lability Exam - Vital Signs Vital Signs: Last Vital Signs Temp 36.6 C 09/15/20 19:50 Pulse 82 09/15/20 19:50 Resp 18 09/15/20 19:50 BP 154/73 H 09/15/20 19:50 Pulse Ox 100 09/15/20 19:50 Weight: 68.039 kg - Exam General: Alert, Oriented, Cooperative, Mild Distress Lungs: Clear to Auscultation, Normal Respiratory Effort Cardiovascular: Regular Rate, Regular Rhythm, Normal S1, Normal S2 GI/Abdominal Exam: Normal Bowel Sounds, Soft, No Distention, Guarding, Tender. No: Non-Tender, Distended, Hepatomegaly, Splenomegaly - Patient Data Lab Results Last 24 hrs: Laboratory Results - last 24 hr 09/15/20 09/15/20 09/15/20 Range/Units 20:00 20:05 20:05 WBC 8.82 (4.0-11.0) K/uL RBC 4.67 (4.30-5.90) M/uL Hgb 13.0 (12.0-16.0) g/dL Hct 37.4 (36.0-46.0) % MCV 80.1 (80.0-98.0) fL MCH 27.8 (27.0-32.0) pg MCHC 34.8 (31.0-37.0) g/dL RDW Std Deviation 42.7 (28.0-62.0) fl RDW Coeff of Stacie 15 (11.0-15.0) % Plt Count 342 (150-400) K/uL MPV 10.30 (7.40-12.00) fL Neut % (Auto) 46.8 L (48.0-80.0) % Lymph % (Auto) 42.9 H (16.0-40.0) % [place] % (Auto) 7.7 (0.0-15.0) % Eos % (Auto) 2.3 (0.0-7.0) % Baso % (Auto) 0.3 (0.0-1.5) % Neut # (Auto) 4.1 (1.4-5.7) K/uL Lymph # (Auto) 3.8 H (0.6-2.4) K/uL [place] # (Auto) 0.7 (0.0-0.8) K/uL Eos # (Auto) 0.2 (0.0-0.7) K/uL Baso # (Auto) 0.0 (0.0-0.1) K/uL Nucleated RBC % 0.0 /100WBC Nucleated RBCs # 0 K/uL Sodium 119 L* (136-145) mmol/L Potassium 3.8 (3.5-5.1) mmol/L Chloride 84 L (98-107) mmol/L Carbon Dioxide 27.6 (21.0-32.0) mmol/L BUN 14 (7.0-18.0) mg/dL Creatinine 1.2 H (0.6-1.0) mg/dL Est Cr Clr Drug Dosing 38.50 mL/min Estimated GFR (MDRD) 46.8 ml/min Glucose 179 H (74-106) mg/dL Calcium 9.5 (8.5-10.1) mg/dL Total Bilirubin 0.3 (0.2-1.0) mg/dL AST 10 L (15-37) IU/L ALT 15 (14-63) IU/L Alkaline Phosphatase 79 (46-116) U/L Total Protein 8.9 H (6.4-8.2) g/dL Albumin 4.2 (3.4-5.0) g/dL Globulin 4.7 H (2.6-4.0) g/dL Albumin/Globulin Ratio 0.9 (0.9-1.6) Lipase 379 (73-393) U/L Urine Color YELLOW Urine Appearance CLEAR Urine pH 6.0 (5.0-8.0) Ur Specific [place] 1.015 (1.001-1.035) Urine Protein NEGATIVE (NEGATIVE) mg/dL Urine Glucose (UA) 250 H (NEGATIVE) mg/dL Urine Ketones NEGATIVE (NEGATIVE) mg/dL Urine Occult Blood TRACE-INTACT H (NEGATIVE) Urine Nitrite NEGATIVE (NEGATIVE) Urine Bilirubin NEGATIVE (NEGATIVE) Urine Urobilinogen 0.2 (<2.0) EU/dL Ur Leukocyte Esterase NEGATIVE (NEGATIVE) Urine RBC 0-2 (0-2/HPF) Urine WBC 0-1 (0-5/HPF) Ur Epithelial Cells RARE (NONE-FEW) Urine Bacteria FEW (NEGATIVE) Urine HCG, Qual (NEGATIVE) SARS-CoV-2 RNA (PINEDA) (NEGATIVE) 09/15/20 09/15/20 Range/Units 20:06 20:18 WBC (4.0-11.0) K/uL RBC (4.30-5.90) M/uL Hgb (12.0-16.0) g/dL Hct (36.0-46.0) % MCV (80.0-98.0) fL MCH (27.0-32.0) pg MCHC (31.0-37.0) g/dL RDW Std Deviation (28.0-62.0) fl RDW Coeff of Stacie (11.0-15.0) % Plt Count (150-400) K/uL MPV (7.40-12.00) fL Neut % (Auto) (48.0-80.0) % Lymph % (Auto) (16.0-40.0) % [place] % (Auto) (0.0-15.0) % Eos % (Auto) (0.0-7.0) % Baso % (Auto) (0.0-1.5) % Neut # (Auto) (1.4-5.7) K/uL Lymph # (Auto) (0.6-2.4) K/uL [place] # (Auto) (0.0-0.8) K/uL Eos # (Auto) (0.0-0.7) K/uL Baso # (Auto) (0.0-0.1) K/uL Nucleated RBC % /100WBC Nucleated RBCs # K/uL Sodium (136-145) mmol/L Potassium (3.5-5.1) mmol/L Chloride (98-107) mmol/L Carbon Dioxide (21.0-32.0) mmol/L BUN (7.0-18.0) mg/dL Creatinine (0.6-1.0) mg/dL Est Cr Clr Drug Dosing mL/min Estimated GFR (MDRD) ml/min Glucose (74-106) mg/dL Calcium (8.5-10.1) mg/dL Total Bilirubin (0.2-1.0) mg/dL AST (15-37) IU/L ALT (14-63) IU/L Alkaline Phosphatase (46-116) U/L Total Protein (6.4-8.2) g/dL Albumin (3.4-5.0) g/dL Globulin (2.6-4.0) g/dL Albumin/Globulin Ratio (0.9-1.6) Lipase (73-393) U/L Urine Color Urine Appearance Urine pH (5.0-8.0) Ur Specific [place] (1.001-1.035) Urine Protein (NEGATIVE) mg/dL Urine Glucose (UA) (NEGATIVE) mg/dL Urine Ketones (NEGATIVE) mg/dL Urine Occult Blood (NEGATIVE) Urine Nitrite (NEGATIVE) Urine Bilirubin (NEGATIVE) Urine Urobilinogen (<2.0) EU/dL Ur Leukocyte Esterase (NEGATIVE) Urine RBC (0-2/HPF) Urine WBC (0-5/HPF) Ur Epithelial Cells (NONE-FEW) Urine Bacteria (NEGATIVE) Urine HCG, Qual NEGATIVE (NEGATIVE) SARS-CoV-2 RNA (PINEDA) NEGATIVE (NEGATIVE) Result Diagrams: 09/15/20 20:05 09/16/20 00:15 Sepsis Event Note - Evaluation Sepsis Screening Result: No Definite Risk - Focused Exam Vital Signs: Vital Signs Temp Pulse Resp BP Pulse Ox 09/15/20 19:50 36.6 C 82 18 154/73 H 100 - Problem List (1) Dehydration SNOMED Code(s): 93216427 ICD Code: E86.0 - DEHYDRATION Status: Acute Current Visit: Yes (2) Hyponatremia SNOMED Code(s): 02068452 ICD Code: E87.1 - HYPO-OSMOLALITY AND HYPONATREMIA Status: Acute Current Visit: Yes (3) Diabetes SNOMED Code(s): 87432427 ICD Code: E11.9 - TYPE 2 DIABETES MELLITUS WITHOUT COMPLICATIONS Status: Acute Current Visit: No (4) Intractable vomiting with nausea SNOMED Code(s): 133824231 ICD Code: R11.2 - NAUSEA WITH VOMITING, UNSPECIFIED Status: Acute Current Visit: No Problem List Initiated/Reviewed/Updated: Yes Orders Last 24hrs: Active Orders 24 hr Category Date Time Status Admission Status [Patient Status] [ADT] Stat ADT 09/15/20 21:00 Active Ambulate [RC] ASDIRECTED Care 09/15/20 21:10 Ordered Antiembolic Devices [RC] PER UNIT ROUTINE Care 09/15/20 21:12 Ordered EKG Documentation Completion [RC] STAT Care 09/15/20 20:45 Active Oxygen Therapy [RC] PRN Care 09/15/20 21:10 Ordered Pulse Oximetry [RC] PRN Care 09/15/20 21:11 Ordered RT Aerosol Therapy [RC] ASDIRECTED Care 09/15/20 21:13 Ordered VTE/DVT Education [RC] PER UNIT ROUTINE Care 09/15/20 21:10 Ordered Vital Signs [RC] Q4H Care 09/15/20 21:10 Ordered BASIC METABOLIC PANEL,BMP [CHEM] Q4H Lab 09/16/20 00:00 Ordered BASIC METABOLIC PANEL,BMP [CHEM] Q4H Lab 09/16/20 04:00 Ordered BASIC METABOLIC PANEL,BMP [CHEM] Q4H Lab 09/16/20 08:00 Ordered BASIC METABOLIC PANEL,BMP [CHEM] Q4H Lab 09/16/20 12:00 Ordered CBC WITH AUTO DIFF [HEME] AM Lab 09/16/20 05:11 Ordered MAGNESIUM [CHEM] AM Lab 09/16/20 05:11 Ordered OSMOLALITY - SERUM [REF] Stat Lab 09/15/20 21:17 Ordered OSMOLALITY - URINE Stat Lab 09/15/20 21:18 Ordered PHOSPHORUS [CHEM] AM Lab 09/16/20 05:11 Ordered Acetaminophen [TylenoL] Med 09/15/20 21:10 Ordered 650 mg PO Q4H PRN Albuterol/Ipratropium [DuoNeb 3.0-0.5 MG/3 ML] Med 09/15/20 21:10 Ordered 3 ml NEB Q4HRRT PRN Enoxaparin [Lovenox] Med 09/15/20 21:15 Ordered 40 mg SUBCUT Q24H Lactated Ringers @ 125 MLS/HR(1000ml) Med 09/15/20 21:15 Ordered Lactated Ringers [Ringers, Lactated] 1,000 ml IV ASDIRECTED Morphine Med 09/15/20 21:16 Ordered 1 mg IVPUSH Q4H PRN Ondansetron [Zofran] Med 09/15/20 21:10 Ordered 4 mg IVPUSH Q4H PRN Pantoprazole [ProTONIX IV] Med 09/15/20 21:15 Ordered 40 mg IV DAILY Sequential Compression Device [OM.PC] Per Unit Routine Oth 09/15/20 21:11 Ordered Resuscitation Status Routine Resus Stat 09/15/20 21:10 Ordered Medication Orders Acetaminophen (Tylenol) 650 mg PO Q4H PRN PRN Reason: Pain (Mild 1-3)/fever Albuterol/Ipratropium (Duoneb 3.0-0.5 Mg/3 Ml) 3 ml NEB Q4HRRT PRN PRN Reason: Shortness Of Breath/wheezing Enoxaparin Sodium (Lovenox) 40 mg SUBCUT Q24H MARTHA Lactated Ringer's (Ringers, Lactated) 1,000 mls @ 125 mls/hr IV ASDIRECTED MARTHA Morphine Sulfate (Morphine) 1 mg IVPUSH Q4H PRN PRN Reason: Nausea/Vomiting Ondansetron HCl (Zofran) 4 mg IVPUSH Q4H PRN PRN Reason: Nausea/Vomiting Pantoprazole Sodium (Protonix Iv) 40 mg IV DAILY [facility] Assessment/Plan Comment:: 55 y/o F admitted for N/V hyponatremia Possible viral gastritis, in light of higher lymphocyte count Hyponatremia likeky hypovolemia obtain urine and serum osm start IV fluids LR @ 125 cc/hr check BMP q4H IV zofran IV PPI Novolog SSI Clear diet as tolerated
[2020-09-15] MEDS: Lactated Ringers 1,000 ML IV SCH (21:54)
[2020-09-15] MEDS: Pantoprazole 40 MG Vial IV SCH (21:56)
[2020-09-15] MEDS: Enoxaparin 40 MG/0.4 ML Syringe SUBCUT SCH (21:56)
[2020-09-16 00:53] LABS: CARBON DIOXIDE,CO2 27.6 mmol/L (21.0-32.0); POTASSIUM,K 4.6 mmol/L (3.5-5.1)
[2020-09-16] MEDS ORDERED: 50% Dextrose in Water 50 ML Syringe IV PRN (01:12)
[2020-09-16] MEDS ORDERED: Glucagon,Human Recombinant 1 MG Vial IM PRN (01:12)
[2020-09-16 04:35] LABS: CARBON DIOXIDE,CO2 29.3 mmol/L (21.0-32.0); POTASSIUM,K 4.3 mmol/L (3.5-5.1)
[2020-09-16] MEDS: Lactated Ringers 1,000 ML IV SCH ×3 (05:49→22:21)
[2020-09-16] MEDS: Insulin Aspart 100 Units/ML 3 ML Pen SUBCUT SCH ×3 (06:53→17:54)
[2020-09-16] MEDS ORDERED: Magnesium Sulfate/Water 100 ML IV ONE (08:25)
[2020-09-16 08:42] LABS: CARBON DIOXIDE,CO2 29.7 mmol/L (21.0-32.0); POTASSIUM,K 4.3 mmol/L (3.5-5.1)
[2020-09-16] MEDS: Pantoprazole 40 MG Vial IV SCH (09:21)
--- NOTE | 2020-09-16 10:42 | PCM.PN ---
- General Info Date of Service: 09/16/20 Admission Dx/Problem (Free Text): Admission Diagnosis/Problem Admission Diagnosis/Problem Hyponatremia Subjective Update: Reports she is feeling much improved from yesterday. Continues to have some abdominal pain and nausea intermittently. Is tolerating clear liquids well and is willing to try slight increase in diet but does not ready for soft diet. Denies any chest pain shortness of breath she is up ambulating in her room. Denies any black or bloody bowel movements denies any dysuria. All communication is done through hospital interpretive services via tele communications. Functional Status: Reports: Pain Controlled, Tolerating Diet, Ambulating - Review of Systems General: Reports: No Symptoms. Denies: Weakness, Fatigue, Malaise Pulmonary: Reports: No Symptoms. Denies: Shortness of Breath Cardiovascular: Reports: No Symptoms. Denies: Chest Pain Gastrointestinal: Reports: Abdominal Pain (Mild soreness to the epigastric region), Nausea (Has improved significantly). Denies: Vomiting Genitourinary: Reports: No Symptoms. Denies: Dysuria, Frequency Musculoskeletal: Reports: No Symptoms Skin: Reports: No Symptoms Neurological: Reports: No Symptoms Psychiatric: Reports: No Symptoms - Patient Data Vitals - Most Recent: Last Vital Signs Temp 97.6 F 09/16/20 07:54 Pulse 68 09/16/20 07:54 Resp 12 09/16/20 07:54 BP 133/72 09/16/20 09:20 Pulse Ox 98 09/16/20 07:54 Weight - Most Recent: 65.374 kg I&O - Last 24 Hours: Intake & Output 09/15/20 09/16/20 09/16/20 22:59 06:59 14:59 Intake Total 1749 Output Total 1600 Balance 149 Lab Results Last 24 Hours: Laboratory Results - last 24 hr 09/15/20 09/15/20 09/15/20 Range/Units 20:00 20:05 20:05 WBC 8.82 (4.0-11.0) K/uL RBC 4.67 (4.30-5.90) M/uL Hgb 13.0 (12.0-16.0) g/dL Hct 37.4 (36.0-46.0) % MCV 80.1 (80.0-98.0) fL MCH 27.8 (27.0-32.0) pg MCHC 34.8 (31.0-37.0) g/dL RDW Std Deviation 42.7 (28.0-62.0) fl RDW Coeff of Stacie 15 (11.0-15.0) % Plt Count 342 (150-400) K/uL MPV 10.30 (7.40-12.00) fL Neut % (Auto) 46.8 L (48.0-80.0) % Lymph % (Auto) 42.9 H (16.0-40.0) % [place] % (Auto) 7.7 (0.0-15.0) % Eos % (Auto) 2.3 (0.0-7.0) % Baso % (Auto) 0.3 (0.0-1.5) % Neut # (Auto) 4.1 (1.4-5.7) K/uL Lymph # (Auto) 3.8 H (0.6-2.4) K/uL [place] # (Auto) 0.7 (0.0-0.8) K/uL Eos # (Auto) 0.2 (0.0-0.7) K/uL Baso # (Auto) 0.0 (0.0-0.1) K/uL Nucleated RBC % 0.0 /100WBC Nucleated RBCs # 0 K/uL Sodium 119 L* (136-145) mmol/L Potassium 3.8 (3.5-5.1) mmol/L Chloride 84 L (98-107) mmol/L Carbon Dioxide 27.6 (21.0-32.0) mmol/L BUN 14 (7.0-18.0) mg/dL Creatinine 1.2 H (0.6-1.0) mg/dL Est Cr Clr Drug Dosing 38.50 mL/min Estimated GFR (MDRD) 46.8 ml/min Glucose 179 H (74-106) mg/dL POC Glucose (60-110) mg/dL Calcium 9.5 (8.5-10.1) mg/dL Phosphorus (2.6-4.7) mg/dL Magnesium (1.8-2.4) mg/dL Total Bilirubin 0.3 (0.2-1.0) mg/dL AST 10 L (15-37) IU/L ALT 15 (14-63) IU/L Alkaline Phosphatase 79 (46-116) U/L Total Protein 8.9 H (6.4-8.2) g/dL Albumin 4.2 (3.4-5.0) g/dL Globulin 4.7 H (2.6-4.0) g/dL Albumin/Globulin Ratio 0.9 (0.9-1.6) Lipase 379 (73-393) U/L Urine Color YELLOW Urine Appearance CLEAR Urine pH 6.0 (5.0-8.0) Ur Specific [place] 1.015 (1.001-1.035) Urine Protein NEGATIVE (NEGATIVE) mg/dL Urine Glucose (UA) 250 H (NEGATIVE) mg/dL Urine Ketones NEGATIVE (NEGATIVE) mg/dL Urine Occult Blood TRACE-INTACT H (NEGATIVE) Urine Nitrite NEGATIVE (NEGATIVE) Urine Bilirubin NEGATIVE (NEGATIVE) Urine Urobilinogen 0.2 (<2.0) EU/dL Ur Leukocyte Esterase NEGATIVE (NEGATIVE) Urine RBC 0-2 (0-2/HPF) Urine WBC 0-1 (0-5/HPF) Ur Epithelial Cells RARE (NONE-FEW) Urine Bacteria FEW (NEGATIVE) Urine HCG, Qual (NEGATIVE) SARS-CoV-2 RNA (PINEDA) (NEGATIVE) 09/15/20 09/15/20 09/16/20 Range/Units 20:06 20:18 00:15 WBC (4.0-11.0) K/uL RBC (4.30-5.90) M/uL Hgb (12.0-16.0) g/dL Hct (36.0-46.0) % MCV (80.0-98.0) fL MCH (27.0-32.0) pg MCHC (31.0-37.0) g/dL RDW Std Deviation (28.0-62.0) fl RDW Coeff of Stacie (11.0-15.0) % Plt Count (150-400) K/uL MPV (7.40-12.00) fL Neut % (Auto) (48.0-80.0) % Lymph % (Auto) (16.0-40.0) % [place] % (Auto) (0.0-15.0) % Eos % (Auto) (0.0-7.0) % Baso % (Auto) (0.0-1.5) % Neut # (Auto) (1.4-5.7) K/uL Lymph # (Auto) (0.6-2.4) K/uL [place] # (Auto) (0.0-0.8) K/uL Eos # (Auto) (0.0-0.7) K/uL Baso # (Auto) (0.0-0.1) K/uL Nucleated RBC % /100WBC Nucleated RBCs # K/uL Sodium 124 L (136-145) mmol/L Potassium 4.6 (3.5-5.1) mmol/L Chloride 91 L (98-107) mmol/L Carbon Dioxide 27.6 (21.0-32.0) mmol/L BUN 10 (7.0-18.0) mg/dL Creatinine 1.0 (0.6-1.0) mg/dL Est Cr Clr Drug Dosing 46.19 mL/min Estimated GFR (MDRD) 57.8 ml/min Glucose 169 H (74-106) mg/dL POC Glucose (60-110) mg/dL Calcium 9.0 (8.5-10.1) mg/dL Phosphorus (2.6-4.7) mg/dL Magnesium (1.8-2.4) mg/dL Total Bilirubin (0.2-1.0) mg/dL AST (15-37) IU/L ALT (14-63) IU/L Alkaline Phosphatase (46-116) U/L Total Protein (6.4-8.2) g/dL Albumin (3.4-5.0) g/dL Globulin (2.6-4.0) g/dL Albumin/Globulin Ratio (0.9-1.6) Lipase (73-393) U/L Urine Color Urine Appearance Urine pH (5.0-8.0) Ur Specific [place] (1.001-1.035) Urine Protein (NEGATIVE) mg/dL Urine Glucose (UA) (NEGATIVE) mg/dL Urine Ketones (NEGATIVE) mg/dL Urine Occult Blood (NEGATIVE) Urine Nitrite (NEGATIVE) Urine Bilirubin (NEGATIVE) Urine Urobilinogen (<2.0) EU/dL Ur Leukocyte Esterase (NEGATIVE) Urine RBC (0-2/HPF) Urine WBC (0-5/HPF) Ur Epithelial Cells (NONE-FEW) Urine Bacteria (NEGATIVE) Urine HCG, Qual NEGATIVE (NEGATIVE) SARS-CoV-2 RNA (PINEDA) NEGATIVE (NEGATIVE) 09/16/20 09/16/20 09/16/20 Range/Units 03:55 03:55 03:55 WBC 6.40 (4.0-11.0) K/uL RBC 4.32 (4.30-5.90) M/uL Hgb 12.0 (12.0-16.0) g/dL Hct 34.7 L (36.0-46.0) % MCV 80.3 (80.0-98.0) fL MCH 27.8 (27.0-32.0) pg MCHC 34.6 (31.0-37.0) g/dL RDW Std Deviation 42.8 (28.0-62.0) fl RDW Coeff of Stacie 15 (11.0-15.0) % Plt Count 304 (150-400) K/uL MPV 10.60 (7.40-12.00) fL Neut % (Auto) 45.0 L (48.0-80.0) % Lymph % (Auto) 45.6 H (16.0-40.0) % [place] % (Auto) 7.7 (0.0-15.0) % Eos % (Auto) 1.4 (0.0-7.0) % Baso % (Auto) 0.3 (0.0-1.5) % Neut # (Auto) 2.9 (1.4-5.7) K/uL Lymph # (Auto) 2.9 H (0.6-2.4) K/uL [place] # (Auto) 0.5 (0.0-0.8) K/uL Eos # (Auto) 0.1 (0.0-0.7) K/uL Baso # (Auto) 0.0 (0.0-0.1) K/uL Nucleated RBC % 0.0 /100WBC Nucleated RBCs # 0 K/uL Sodium 126 L (136-145) mmol/L Potassium 4.3 (3.5-5.1) mmol/L Chloride 92 L (98-107) mmol/L Carbon Dioxide 29.3 (21.0-32.0) mmol/L BUN 10 (7.0-18.0) mg/dL Creatinine 1.0 (0.6-1.0) mg/dL Est Cr Clr Drug Dosing 51.34 mL/min Estimated GFR (MDRD) 57.8 ml/min Glucose 165 H (74-106) mg/dL POC Glucose (60-110) mg/dL Calcium 9.2 (8.5-10.1) mg/dL Phosphorus 3.2 (2.6-4.7) mg/dL Magnesium 1.4 L (1.8-2.4) mg/dL Total Bilirubin (0.2-1.0) mg/dL AST (15-37) IU/L ALT (14-63) IU/L Alkaline Phosphatase (46-116) U/L Total Protein (6.4-8.2) g/dL Albumin (3.4-5.0) g/dL Globulin (2.6-4.0) g/dL Albumin/Globulin Ratio (0.9-1.6) Lipase (73-393) U/L Urine Color Urine Appearance Urine pH (5.0-8.0) Ur Specific [place] (1.001-1.035) Urine Protein (NEGATIVE) mg/dL Urine Glucose (UA) (NEGATIVE) mg/dL Urine Ketones (NEGATIVE) mg/dL Urine Occult Blood (NEGATIVE) Urine Nitrite (NEGATIVE) Urine Bilirubin (NEGATIVE) Urine Urobilinogen (<2.0) EU/dL Ur Leukocyte Esterase (NEGATIVE) Urine RBC (0-2/HPF) Urine WBC (0-5/HPF) Ur Epithelial Cells (NONE-FEW) Urine Bacteria (NEGATIVE) Urine HCG, Qual (NEGATIVE) SARS-CoV-2 RNA (PINEDA) (NEGATIVE) 09/16/20 09/16/20 Range/Units 05:56 08:16 WBC (4.0-11.0) K/uL RBC (4.30-5.90) M/uL Hgb (12.0-16.0) g/dL Hct (36.0-46.0) % MCV (80.0-98.0) fL MCH (27.0-32.0) pg MCHC (31.0-37.0) g/dL RDW Std Deviation (28.0-62.0) fl RDW Coeff of Stacie (11.0-15.0) % Plt Count (150-400) K/uL MPV (7.40-12.00) fL Neut % (Auto) (48.0-80.0) % Lymph % (Auto) (16.0-40.0) % [place] % (Auto) (0.0-15.0) % Eos % (Auto) (0.0-7.0) % Baso % (Auto) (0.0-1.5) % Neut # (Auto) (1.4-5.7) K/uL Lymph # (Auto) (0.6-2.4) K/uL [place] # (Auto) (0.0-0.8) K/uL Eos # (Auto) (0.0-0.7) K/uL Baso # (Auto) (0.0-0.1) K/uL Nucleated RBC % /100WBC Nucleated RBCs # K/uL Sodium 126 L (136-145) mmol/L Potassium 4.3 (3.5-5.1) mmol/L Chloride 93 L (98-107) mmol/L Carbon Dioxide 29.7 (21.0-32.0) mmol/L BUN 8 (7.0-18.0) mg/dL Creatinine 1.0 (0.6-1.0) mg/dL Est Cr Clr Drug Dosing 51.34 mL/min Estimated GFR (MDRD) 57.8 ml/min Glucose 191 H (74-106) mg/dL POC Glucose 174 H (60-110) mg/dL Calcium 9.1 (8.5-10.1) mg/dL Phosphorus (2.6-4.7) mg/dL Magnesium (1.8-2.4) mg/dL Total Bilirubin (0.2-1.0) mg/dL AST (15-37) IU/L ALT (14-63) IU/L Alkaline Phosphatase (46-116) U/L Total Protein (6.4-8.2) g/dL Albumin (3.4-5.0) g/dL Globulin (2.6-4.0) g/dL Albumin/Globulin Ratio (0.9-1.6) Lipase (73-393) U/L Urine Color Urine Appearance Urine pH (5.0-8.0) Ur Specific [place] (1.001-1.035) Urine Protein (NEGATIVE) mg/dL Urine Glucose (UA) (NEGATIVE) mg/dL Urine Ketones (NEGATIVE) mg/dL Urine Occult Blood (NEGATIVE) Urine Nitrite (NEGATIVE) Urine Bilirubin (NEGATIVE) Urine Urobilinogen (<2.0) EU/dL Ur Leukocyte Esterase (NEGATIVE) Urine RBC (0-2/HPF) Urine WBC (0-5/HPF) Ur Epithelial Cells (NONE-FEW) Urine Bacteria (NEGATIVE) Urine HCG, Qual (NEGATIVE) SARS-CoV-2 RNA (PINEDA) (NEGATIVE) Med Orders - Current: Current Medications Acetaminophen (Tylenol) 650 mg PO Q4H PRN PRN Reason: Pain (Mild 1-3)/fever Albuterol/Ipratropium (Duoneb 3.0-0.5 Mg/3 Ml) 3 ml NEB Q4HRRT PRN PRN Reason: Shortness Of Breath/wheezing Dextrose/Water (Dextrose 50% In Water) 50 ml IV ASDIRECTED PRN PRN Reason: Hypoglycemia Enalapril Maleate (Vasotec) 20 mg PO DAILY [facility] Last Admin: 09/16/20 09:20 Dose: 20 mg Documented by: Enoxaparin Sodium (Lovenox) 40 mg SUBCUT Q24H [facility] Last Admin: 09/15/20 21:56 Dose: 40 mg Documented by: Glucagon (Glucagen) 1 mg IM ASDIRECTED PRN PRN Reason: Hypoglycemia Lactated Ringer's (Ringers, Lactated) 1,000 mls @ 125 mls/hr IV ASDIRECTED [facility] Last Admin: 09/16/20 05:49 Dose: 125 mls/hr Documented by: Magnesium Sulfate (Magnesium Sulfate In Water Premix) 100 mls @ 33.333 mls/hr IV ONETIME ONE Stop: 09/16/20 11:24 Last Admin: 09/16/20 09:21 Dose: 33.333 mls/hr Documented by: Insulin Aspart (Novolog) 0 unit SUBCUT TIDAC [facility]; Protocol Last Admin: 09/16/20 06:53 Dose: 1 unit Documented by: Morphine Sulfate (Morphine) 1 mg IVPUSH Q4H PRN PRN Reason: Nausea/Vomiting Ondansetron HCl (Zofran) 4 mg IVPUSH Q4H PRN PRN Reason: Nausea/Vomiting Last Admin: 09/16/20 09:20 Dose: 4 mg Documented by: Pantoprazole Sodium (Protonix Iv) 40 mg IV DAILY [facility] Last Admin: 09/16/20 09:21 Dose: 40 mg Documented by: Discontinued Medications Sodium Chloride (Normal Saline) 1,000 mls @ 999 mls/hr IV STAT ONE Stop: 09/15/20 20:58 Last Admin: 09/15/20 20:11 Dose: 999 mls/hr Documented by: Ondansetron HCl (Zofran) 4 mg IVPUSH ONETIME ONE Stop: 09/15/20 19:59 Last Admin: 09/15/20 20:10 Dose: 4 mg Documented by: - Exam General: Alert, Oriented, Cooperative Neck: Supple Lungs: Clear to Auscultation, Normal Respiratory Effort Cardiovascular: Regular Rate, Regular Rhythm GI/Abdominal Exam: Normal Bowel Sounds, Soft, Tender (Mild tenderness to epigastric region) Back Exam: Normal Inspection, Full Range of Motion Extremities: Normal Inspection, Normal Range of Motion, Non-Tender, No Pedal Edema Neurological: No New Focal Deficit Psy/Mental Status: Alert, Normal Affect, Normal Mood Sepsis Event Note - Evaluation Sepsis Screening Result: No Definite Risk - Focused Exam Vital Signs: Vital Signs Temp Pulse Resp BP BP BP Pulse Ox 09/16/20 09:20 133/72 09/16/20 07:54 97.6 F 68 12 133/72 98 09/16/20 04:00 97.5 F 73 18 131/70 99 09/15/20 23:30 100 09/15/20 23:20 97.3 F 86 18 149/73 H 100 09/15/20 23:10 89 18 120/74 98 Pulse Ox 09/16/20 09:20 09/16/20 07:54 09/16/20 04:00 09/15/20 23:30 100 09/15/20 23:20 09/15/20 23:10 - Problem List & Annotations (1) Dehydration SNOMED Code(s): 38275300 Code(s): E86.0 - DEHYDRATION Status: Acute Current Visit: Yes (2) Hyponatremia SNOMED Code(s): 12448129 Code(s): E87.1 - HYPO-OSMOLALITY AND HYPONATREMIA Status: Acute Current Visit: Yes (3) Diabetes SNOMED Code(s): 53322205 Code(s): E11.9 - TYPE 2 DIABETES MELLITUS WITHOUT COMPLICATIONS Status: Acute Current Visit: No (4) Intractable vomiting with nausea SNOMED Code(s): 763370648 Code(s): R11.2 - NAUSEA WITH VOMITING, UNSPECIFIED Status: Acute Current Visit: No - Problem List Review Problem List Initiated/Reviewed/Updated: Yes - My Orders Last 24 Hours: My Active Orders 09/16/20 08:25 Magnesium Sulfate/Water [Magnesium Sulfate in Water Premix] 100 ml IV ONETIME 09/16/20 08:27 Intake and Output [RC] QSHIFT - Plan Plan:: 55 y/o F admitted for N/V hyponatremia 1. Intractable nausea vomiting and epigastric pain - Possible viral gastritis, in light of higher lymphocyte count - Hyponatremia likely hypovolemia and acute nature -Sodium this morning 126 patient is feeling much improved. -Continue IV fluids -Continue Zofran as needed -Continue Protonix -We will advance diet to full liquid and monitor -Does have history of cholelithiasis but denies any right upper quadrant pain -Monitor BMP every 12 2. DM type II -Reports she gets very ill nauseated with abdominal pain and diarrhea with Metformin and is requesting this to be changed to something else. -We will evaluate this on discharge consider sulfonylurea VTE prophylaxis: Lovenox CODE STATUS full code Dispo: 1 to 2 days
[2020-09-16 19:53] LABS: BLOOD UREA NITROGEN,BUN 7 mg/dL (7.0-18.0); CARBON DIOXIDE,CO2 30.9 mmol/L (21.0-32.0); CHLORIDE,CL 93 mmol/L (98-107); GLUCOSE RANDOM 164 mg/dL (74-106); POTASSIUM,K 4.5 mmol/L (3.5-5.1); SODIUM,NA 127 mmol/L (136-145)
[2020-09-16] MEDS: Enoxaparin 40 MG/0.4 ML Syringe SUBCUT SCH (20:35)
[2020-09-17] MEDS: Lactated Ringers 1,000 ML IV SCH (06:21)
[2020-09-17 07:47] LABS: BLOOD UREA NITROGEN,BUN 4 mg/dL (7.0-18.0); CARBON DIOXIDE,CO2 27.6 mmol/L (21.0-32.0); CHLORIDE,CL 97 mmol/L (98-107); GLUCOSE RANDOM 167 mg/dL (74-106); POTASSIUM,K 3.8 mmol/L (3.5-5.1); SODIUM,NA 131 mmol/L (136-145)
[2020-09-17] MEDS: Insulin Aspart 100 Units/ML 3 ML Pen SUBCUT SCH ×2 (08:01→15:59)
[2020-09-17] MEDS: Pantoprazole 40 MG Vial IV SCH (08:01)
[2020-09-17] MEDS ORDERED: Magnesium Sulfate/Water 4 GM/100 ML BAG IV ONE (08:44)
[2020-09-17] MEDS ORDERED: Magnesium Sulfate/Water 100 ML IV ONE (10:15)
--- NOTE | 2020-09-17 10:53 | PCM.DCSUM1 ---
Discharge Summary - Hospital Course Brief History: Patient is a 55-year-old female with PMH of DM type 2, HTN who presents to the emergency room with complaints of generalized abdominal pain, nausea and vomiting x1 day, she is unable to keep anything down. She has some abdominal pain but attributes it to her wreching/vomiting. Patient denies any fever, chills, headache, change in vision, syncope or near syncope. Denies any chest pain, back pain, shortness of breath or cough. Denies any diarrhea, constipation or dysuria. Denies any flank pain, vaginal bleeding/discharge or concerns of STIs. Has not noted any blood in urine or stool. Patient has been eating and drinking appropriately. 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 patient was admitted for further management. Diagnosis: Stroke: No - Discharge Data Discharge Date: 09/17/20 Discharge Disposition: Home, Self-Care 01 Condition: Stable - Referral to Home Health Primary Care Physician: PCP None - Discharge Diagnosis/Problem(s) (1) Dehydration SNOMED Code(s): 09482290 ICD Code: E86.0 - DEHYDRATION Status: Acute Current Visit: Yes (2) Hyponatremia SNOMED Code(s): 85010695 ICD Code: E87.1 - HYPO-OSMOLALITY AND HYPONATREMIA Status: Acute Current Visit: Yes (3) Diabetes SNOMED Code(s): 95256523 ICD Code: E11.9 - TYPE 2 DIABETES MELLITUS WITHOUT COMPLICATIONS Status: Acute Current Visit: No (4) Intractable vomiting with nausea SNOMED Code(s): 056213134 ICD Code: R11.2 - NAUSEA WITH VOMITING, UNSPECIFIED Status: Acute Current Visit: No - Patient Summary/Data Hospital Course: Admitting diagnosis; Intractable nausea and vomiting Hyponatremia Discharge diagnoses Viral gastroenteritis Hyponatremia-resolved Tarsha was admitted secondary to hyponatremia secondary to suspected viral gastroenteritis. She also takes hydrochlorothiazide which may have worsened hyponatremia during acute illness. She was admitted and treated with bowel rest along with IV fluid resuscitation. Hyponatremia likely acute secondary to nausea and vomiting. Sodium improved to 126 the following day and has slowly improved since then to today at 131. Sailaja is feeling much better today and was able to tolerate a soft bland diet. She reports that she feels a lot of her stomach upset comes from metformin and did not want to take this any longer. We will increase her dose of glyburide to 5 mg daily and to have her follow-up with PCP. I will also hold her hydrochlorothiazide for now continue lisinopril. She is to restart this upon guidance from PCP and measurement of sodium in the coming weeks. She otherwise is doing well today and will be discharged home. She is to follow-up with PCP in 1 to 2 weeks continue to monitor sugars at home. She is to return to the ER or clinic if concerns should arise. All communication with patient was supported with interpretive services via [employer] link. - Patient Instructions Diet: Diabetic Diet, GI Soft/Low Residue/Low Fiber (slow increase to regular in coming days) Activity: No Strenuous Activities, Rest and Relax Today Showering/Bathing: May Shower Notify Provider of: Fever, Increased Pain, Swelling and Redness, Drainage, Nausea and/or Vomiting - Discharge Plan *PRESCRIPTION DRUG MONITORING PROGRAM REVIEWED*: Not Applicable *COPY OF PRESCRIPTION DRUG MONITORING REPORT IN PATIENT TRELL: Not Applicable Prescriptions/Med Rec: glyBURIDE [Glyburide] 5 mg PO WITHBREAKFAST #30 tablet Home Medications: Home Meds Enalapril Maleate 20 mg PO DAILY 09/14/19 [History] Acetaminophen [Tylenol] 650 mg PO Q6H PRN tablet 09/18/19 [Rx] glyBURIDE [Glyburide] 5 mg PO WITHBREAKFAST #30 tablet 09/17/20 [Rx] Oxygen Therapy Mode: Room Air Patient Handouts: Viral Gastroenteritis, Adult, Hypoglycemia, Sodium Test, Glyburide tablets Referrals: Michael Norris MD [Physician] - 09/26/20 9:00 am - Discharge Summary/Plan Comment DC Time >30 min.: No - Patient Data Vitals - Most Recent: Last Vital Signs Temp 96.0 F L 09/17/20 07:41 Pulse 69 09/17/20 07:41 Resp 20 09/17/20 07:41 BP 160/72 H 09/17/20 08:00 Pulse Ox 97 09/17/20 07:41 Weight - Most Recent: 65.374 kg I&O - Last 24 hours: Intake & Output 09/16/20 09/17/20 09/17/20 22:59 06:59 14:59 Intake Total 2290 2588 Output Total 2600 1400 Balance -310 1188 Lab Results - Last 24 hrs: Laboratory Results - last 24 hr 09/15/20 09/15/20 09/16/20 Range/Units 20:05 20:06 11:54 WBC (4.0-11.0) K/uL RBC (4.30-5.90) M/uL Hgb (12.0-16.0) g/dL Hct (36.0-46.0) % MCV (80.0-98.0) fL MCH (27.0-32.0) pg MCHC (31.0-37.0) g/dL RDW Std Deviation (28.0-62.0) fl RDW Coeff of Stacie (11.0-15.0) % Plt Count (150-400) K/uL MPV (7.40-12.00) fL Neut % (Auto) (48.0-80.0) % Lymph % (Auto) (16.0-40.0) % [place] % (Auto) (0.0-15.0) % Eos % (Auto) (0.0-7.0) % Baso % (Auto) (0.0-1.5) % Neut # (Auto) (1.4-5.7) K/uL Lymph # (Auto) (0.6-2.4) K/uL [place] # (Auto) (0.0-0.8) K/uL Eos # (Auto) (0.0-0.7) K/uL Baso # (Auto) (0.0-0.1) K/uL Nucleated RBC % /100WBC Nucleated RBCs # K/uL Sodium (136-145) mmol/L Potassium (3.5-5.1) mmol/L Chloride (98-107) mmol/L Carbon Dioxide (21.0-32.0) mmol/L BUN (7.0-18.0) mg/dL Creatinine (0.6-1.0) mg/dL Est Cr Clr Drug Dosing mL/min Estimated GFR (MDRD) ml/min Glucose (74-106) mg/dL POC Glucose 153 H (60-110) mg/dL Serum Osmolality 252 L (275-295) mosm/kg Calcium (8.5-10.1) mg/dL Magnesium (1.8-2.4) mg/dL Urine Osmolality 333 (300-900) mosm/kg 09/16/20 09/16/20 09/16/20 Range/Units 17:52 19:25 20:29 WBC (4.0-11.0) K/uL RBC (4.30-5.90) M/uL Hgb (12.0-16.0) g/dL Hct (36.0-46.0) % MCV (80.0-98.0) fL MCH (27.0-32.0) pg MCHC (31.0-37.0) g/dL RDW Std Deviation (28.0-62.0) fl RDW Coeff of Stacie (11.0-15.0) % Plt Count (150-400) K/uL MPV (7.40-12.00) fL Neut % (Auto) (48.0-80.0) % Lymph % (Auto) (16.0-40.0) % [place] % (Auto) (0.0-15.0) % Eos % (Auto) (0.0-7.0) % Baso % (Auto) (0.0-1.5) % Neut # (Auto) (1.4-5.7) K/uL Lymph # (Auto) (0.6-2.4) K/uL [place] # (Auto) (0.0-0.8) K/uL Eos # (Auto) (0.0-0.7) K/uL Baso # (Auto) (0.0-0.1) K/uL Nucleated RBC % /100WBC Nucleated RBCs # K/uL Sodium 127 L (136-145) mmol/L Potassium 4.5 (3.5-5.1) mmol/L Chloride 93 L (98-107) mmol/L Carbon Dioxide 30.9 (21.0-32.0) mmol/L BUN 7 (7.0-18.0) mg/dL Creatinine 0.8 (0.6-1.0) mg/dL Est Cr Clr Drug Dosing 64.18 mL/min Estimated GFR (MDRD) > 60.0 ml/min Glucose 164 H (74-106) mg/dL POC Glucose 202 H 174 H (60-110) mg/dL Serum Osmolality (275-295) mosm/kg Calcium 9.3 (8.5-10.1) mg/dL Magnesium (1.8-2.4) mg/dL Urine Osmolality (300-900) mosm/kg 09/16/20 09/17/20 09/17/20 Range/Units 21:23 06:20 07:02 WBC (4.0-11.0) K/uL RBC (4.30-5.90) M/uL Hgb (12.0-16.0) g/dL Hct (36.0-46.0) % MCV (80.0-98.0) fL MCH (27.0-32.0) pg MCHC (31.0-37.0) g/dL RDW Std Deviation (28.0-62.0) fl RDW Coeff of Stacie (11.0-15.0) % Plt Count (150-400) K/uL MPV (7.40-12.00) fL Neut % (Auto) (48.0-80.0) % Lymph % (Auto) (16.0-40.0) % [place] % (Auto) (0.0-15.0) % Eos % (Auto) (0.0-7.0) % Baso % (Auto) (0.0-1.5) % Neut # (Auto) (1.4-5.7) K/uL Lymph # (Auto) (0.6-2.4) K/uL [place] # (Auto) (0.0-0.8) K/uL Eos # (Auto) (0.0-0.7) K/uL Baso # (Auto) (0.0-0.1) K/uL Nucleated RBC % /100WBC Nucleated RBCs # K/uL Sodium 131 L (136-145) mmol/L Potassium 3.8 (3.5-5.1) mmol/L Chloride 97 L (98-107) mmol/L Carbon Dioxide 27.6 (21.0-32.0) mmol/L BUN 4 L (7.0-18.0) mg/dL Creatinine 0.8 (0.6-1.0) mg/dL Est Cr Clr Drug Dosing 64.18 mL/min Estimated GFR (MDRD) > 60.0 ml/min Glucose 167 H (74-106) mg/dL POC Glucose 215 H 173 H (60-110) mg/dL Serum Osmolality (275-295) mosm/kg Calcium 8.9 (8.5-10.1) mg/dL Magnesium 1.4 L (1.8-2.4) mg/dL Urine Osmolality (300-900) mosm/kg 09/17/20 Range/Units 07:02 WBC 4.60 (4.0-11.0) K/uL RBC 4.32 (4.30-5.90) M/uL Hgb 11.9 L (12.0-16.0) g/dL Hct 35.2 L (36.0-46.0) % MCV 81.5 (80.0-98.0) fL MCH 27.5 (27.0-32.0) pg MCHC 33.8 (31.0-37.0) g/dL RDW Std Deviation 44.1 (28.0-62.0) fl RDW Coeff of Stacie 15 (11.0-15.0) % Plt Count 312 (150-400) K/uL MPV 9.90 (7.40-12.00) fL Neut % (Auto) 44.8 L (48.0-80.0) % Lymph % (Auto) 44.3 H (16.0-40.0) % [place] % (Auto) 8.3 (0.0-15.0) % Eos % (Auto) 2.2 (0.0-7.0) % Baso % (Auto) 0.4 (0.0-1.5) % Neut # (Auto) 2.1 (1.4-5.7) K/uL Lymph # (Auto) 2.0 (0.6-2.4) K/uL [place] # (Auto) 0.4 (0.0-0.8) K/uL Eos # (Auto) 0.1 (0.0-0.7) K/uL Baso # (Auto) 0.0 (0.0-0.1) K/uL Nucleated RBC % 0.0 /100WBC Nucleated RBCs # 0 K/uL Sodium (136-145) mmol/L Potassium (3.5-5.1) mmol/L Chloride (98-107) mmol/L Carbon Dioxide (21.0-32.0) mmol/L BUN (7.0-18.0) mg/dL Creatinine (0.6-1.0) mg/dL Est Cr Clr Drug Dosing mL/min Estimated GFR (MDRD) ml/min Glucose (74-106) mg/dL POC Glucose (60-110) mg/dL Serum Osmolality (275-295) mosm/kg Calcium (8.5-10.1) mg/dL Magnesium (1.8-2.4) mg/dL Urine Osmolality (300-900) mosm/kg Med Orders - Current: Current Medications Acetaminophen (Tylenol) 650 mg PO Q4H PRN PRN Reason: Pain (Mild 1-3)/fever Albuterol/Ipratropium (Duoneb 3.0-0.5 Mg/3 Ml) 3 ml NEB Q4HRRT PRN PRN Reason: Shortness Of Breath/wheezing Dextrose/Water (Dextrose 50% In Water) 50 ml IV ASDIRECTED PRN PRN Reason: Hypoglycemia Enalapril Maleate (Vasotec) 20 mg PO DAILY [facility] Last Admin: 09/17/20 08:00 Dose: 20 mg Documented by: Enoxaparin Sodium (Lovenox) 40 mg SUBCUT Q24H [facility] Last Admin: 09/16/20 20:35 Dose: 40 mg Documented by: Glucagon (Glucagen) 1 mg IM ASDIRECTED PRN PRN Reason: Hypoglycemia Lactated Ringer's (Ringers, Lactated) 1,000 mls @ 125 mls/hr IV ASDIRECTED [facility] Last Admin: 09/17/20 06:21 Dose: 125 mls/hr Documented by: Magnesium Sulfate (Magnesium Sulfate In Water Premix) 100 mls @ 33.333 mls/hr IV ONETIME ONE Stop: 09/17/20 13:14 Last Admin: 09/17/20 10:11 Dose: 33.333 mls/hr Documented by: Insulin Aspart (Novolog) 0 unit SUBCUT TIDAC [facility]; Protocol Last Admin: 09/17/20 08:01 Dose: 1 unit Documented by: Morphine Sulfate (Morphine) 1 mg IVPUSH Q4H PRN PRN Reason: Nausea/Vomiting Ondansetron HCl (Zofran) 4 mg IVPUSH Q4H PRN PRN Reason: Nausea/Vomiting Last Admin: 09/16/20 09:20 Dose: 4 mg Documented by: Pantoprazole Sodium (Protonix Iv) 40 mg IV DAILY MARTHA Last Admin: 09/17/20 08:01 Dose: 40 mg Documented by: Discontinued Medications Sodium Chloride (Normal Saline) 1,000 mls @ 999 mls/hr IV STAT ONE Stop: 09/15/20 20:58 Last Admin: 09/15/20 20:11 Dose: 999 mls/hr Documented by: Magnesium Sulfate (Magnesium Sulfate In Water Premix) 100 mls @ 33.333 mls/hr IV ONETIME ONE Stop: 09/16/20 11:24 Last Admin: 09/16/20 09:21 Dose: 33.333 mls/hr Documented by: Magnesium Sulfate (Magnesium Sulfate In Water Premix) 4 gm in 100 mls @ 50 mls/hr IV ONETIME ONE Stop: 09/17/20 10:43 Last Admin: 09/17/20 10:11 Dose: Not Given Documented by: Ondansetron HCl (Zofran) 4 mg IVPUSH ONETIME ONE Stop: 09/15/20 19:59 Last Admin: 09/15/20 20:10 Dose: 4 mg Documented by: - Exam General: Reports: Alert, Oriented, Cooperative, No Acute Distress Neck: Reports: Supple Lungs: Reports: Clear to Auscultation, Normal Respiratory Effort Cardiovascular: Reports: Regular Rate, Regular Rhythm GI/Abdominal Exam: Normal Bowel Sounds, Soft, Non-Tender, No Distention Extremities: Normal Inspection, Normal Range of Motion, Non-Tender, No Pedal Edema Neurological: Reports: No New Focal Deficit Psy/Mental Status: Reports: Alert, Normal Affect, Normal Mood
== END 2020-09-17 13:00 | disposition home or self-care (01) ==
LOC: MW.ED 19:33 → MW.MS 21:00
PROVIDERS: ADMIT Student in an Organized Health Care Education/Training Program; ATTEND Student in an Organized Health Care Education/Training Program
DX: A08.4 Viral intestinal infection, unspecified (principal); E87.1 Hypo-osmolality and hyponatremia; E86.0 Dehydration; E11.9 Type 2 diabetes mellitus without complications; I10 Essential (primary) hypertension; Z20.828 Contact with and (suspected) exposure to other viral communicable diseases
CPT/HCPCS: 36415; 80048; 80053; 81001; 81025; 82962; 83690; 83735; 83930; 83935; 84100; 85025; 87635; 93005; 96374; 99285; A9270; C9113; J1650; J1815; J2405; J3475; J7030; J7120; 99284; U0002